=== PATIENT | male | born 1955 | race Caucasian/White ===

== ENCOUNTER 2019-06-24 09:40 | Outpatient (CLI) | payer BC, SELFPAY ==
--- NOTE | ~2019-06-24 | XR_ITS ---
XR sinus min 3V DATE: 06/24/2019 10:56 INDICATION: Cough TECHNIQUE: ambrosio Vanessa, lateral and submental vertical views COMPARISON: None FINDINGS: The paranasal sinuses and mastoid air cells are normally developed and aerated. IMPRESSION: Negative Reviewed, dictated and finalized at location B. IMPRESSION: Negative
--- NOTE | ~2019-06-24 | XR_ITS ---
XR chest 2V DATE: 06/24/2019 10:56 INDICATION: Cough TECHNIQUE: PA and lateral views COMPARISON: 01/31/2016 2 view chest FINDINGS: Normal heart size. There is aortic tortuosity. No hilar or mediastinal enlargement. No pulmonary infiltrate or consolidation, pleural effusion or pulmonary vascular congestion or pneumo thorax. Diffuse idiopathic skeletal hyperostosis of the thoracic spine. IMPRESSION: No active cardiopulmonary disease Reviewed, dictated and finalized at location B.
[2019-06-24 10:45] LABS: Basophils Percent Auto 0.5 % (0.2-1.2); Eosinophils Absolute Auto 0.3 K/mm3 (0-0.3); Eosinophils Percent Auto 3.2 % (0-4.4); Hemoglobin 15.1 g/dL (14.0-18.0); Immature Granulocyte Absolute 0.02 K/mm3 (0.00-0.031); Immature Granulocyte Percent A 0.2 % (0-0.5); Lymphocytes Absolute Auto 1.98 K/mm3 (0.9-3.2); Lymphocytes Percent Auto 24.4 % (18.3-44.2); Mean Corpuscular HGB Conc 32.8 g/dl (32-36); Mean Corpuscular Hemoglobin 29.8 pg (26-34); Mean Corpuscular Volume 90.9 fl (80-100); Mean Platelet Volume 9.5 fl (7.4-10.4); Monocytes Absolute Auto 0.5 K/mm3 (0.1-0.6); Monocytes Percent Auto 6.5 % (2.6-8.5); Neutrophils Absolute Auto 5.3 K/mm3 (1.3-6.7); Neutrophils Percent Auto 65.2 % (45.5-73.1); Platelet Count Result 277 k/mm3 (150-375); Red Blood Count 5.06 M/mm3 (4.6-6.20); Red Cell Distribution Width 13.7 % (11.5-14.5); White Blood Count 8.1 K/mm3 (4.5-10.0)
[2019-06-24 10:48] LABS: Influenza Control Positive
== END 2019-06-24 09:41 | disposition home or self-care (01) ==
LOC: ANHLAB 09:46
PROVIDERS: PCP Internal Medicine; Visit Provider Internal Medicine
DX: R69 Illness, unspecified (principal); R05 Cough
CPT/HCPCS: 70220; 71046; 85025; 87804

== ENCOUNTER 2019-07-15 09:40 | Outpatient (CLI) | payer BC, SELFPAY ==
--- NOTE | ~2019-07-15 | XR_ITS ---
EXAMINATION: XR chest 2V DATE: 07/15/2019 11:02 INDICATION: Fever. TECHNIQUE: Frontal and lateral views of the chest were obtained. COMPARISON: Chest 2 views 06/24/2019 FINDINGS: There is mild atelectasis at left lung base. No pleural effusion or pneumothorax. The heart size is normal. Surgical clips in the right upper quadrant are likely from cholecystectomy. IMPRESSION: 1. Mild atelectasis at left lung base. Reviewed, dictated and finalized at location A.
[2019-07-15 10:27] LABS: Basophils Percent Auto 0.5 % (0.2-1.2); Eosinophils Absolute Auto 0.4 K/mm3 (0-0.3); Eosinophils Percent Auto 5.4 % (0-4.4); Hematocrit 45.3 % (42.0-52.0); Hemoglobin 15.1 g/dL (14.0-18.0); Immature Granulocyte Absolute 0.02 K/mm3 (0.00-0.031); Immature Granulocyte Percent A 0.3 % (0-0.5); Lymphocytes Absolute Auto 1.86 K/mm3 (0.9-3.2); Lymphocytes Percent Auto 28.8 % (18.3-44.2); Mean Corpuscular HGB Conc 33.3 g/dl (32-36); Mean Corpuscular Hemoglobin 30.1 pg (26-34); Mean Corpuscular Volume 90.4 fl (80-100); Mean Platelet Volume 9.7 fl (7.4-10.4); Monocytes Absolute Auto 0.6 K/mm3 (0.1-0.6); Monocytes Percent Auto 8.5 % (2.6-8.5); Neutrophils Absolute Auto 3.6 K/mm3 (1.3-6.7); Neutrophils Percent Auto 56.5 % (45.5-73.1); Platelet Count Result 217 k/mm3 (150-375); Red Blood Count 5.01 M/mm3 (4.6-6.20); Red Cell Distribution Width 13.8 % (11.5-14.5); White Blood Count 6.5 K/mm3 (4.5-10.0)
[2019-07-15 10:41] LABS: Alanine Aminotransferase 30 U/L (4-50); Albumin Level 4.3 g/dL (3.5-5.1); Alkaline Phosphatase 47 U/L (38-126); Aspartate Amino Transferase 28 U/L (17-59); Bilirubin,Total 0.3 mg/dL (0.2-1.3); Blood Urea Nitrogen 15 mg/dL (9-20); CRP < 0.5 mg/dL (<1.0); Calcium 9.1 mg/dL (8.4-10.2); Carbon Dioxide 27 mmol/L (22-30); Chloride 105 mmol/L (98-107); Estimated Glomerular Filt Rate > 60; Glucose 108 mg/dL (75-110); Potassium 3.4 mmol/L (3.4-5.0); Sodium 141 mmol/L (137-145)
[2019-07-15 11:07] LABS: Erythrocyte Sedimentation Rate 7 mm/hr (0-20)
[2019-07-15 11:10] LABS: Add Urine Microscopic? NO; Appearance Urine Clear (Clear); Bilirubin Urine Negative (Negative); Blood Urine Negative (Negative); Color Urine Yellow (Yellow); Glucose Urine UA Negative (Negative); Ketones Urine Negative (Negative); Leukocyte Esterase Ur Negative LEU/UL (NEGATIVE); Nitrate Urine Negative (Negative); Protein Urine Negative (Negative); Specific Grav Ur 1.028 (1.001-1.035); Urobilinogen Urine Negative mg/dL (<2.0)
== END 2019-07-15 09:41 | disposition home or self-care (01) ==
PROVIDERS: PCP Internal Medicine; Visit Provider Internal Medicine
DX: R50.9 Fever, unspecified (principal); Z79.899 Other long term (current) drug therapy; R91.8 Other nonspecific abnormal finding of lung field
CPT/HCPCS: 36415; 71046; 80053; 81003; 85025; 85652; 86140; 87040; 87086

== ENCOUNTER 2019-07-27 16:13 | Outpatient (CLI) | payer BC, SELFPAY ==
--- NOTE | ~2019-07-27 | CT_ITS ---
EXAMINATION: CT brain wo con INDICATION: Fever of unknown origin COMPARISON: 09/29/2014 TECHNIQUE: Standard unenhanced head CT. The dose-length product (DLP) was 605.33 mGy-cm. The mA was a djusted according to patient size. Iterative reconstruction technique was employed. FINDINGS: There is no intracranial hemorrhage, acute infarction, or abnormal mass lesion. The ventric les are normal. There is no abnormal mass effect or midline shift. The villela-white matter differentiat ion is normal. The basal cisterns are patent. The orbits are normal. The paranasal sinuses, mastoids and calvarium are normal. IMPRESSION: 1. No acute intracranial abnormality. Reviewed, dictated and finalized at location A.
--- NOTE | ~2019-07-27 | CT_ITS ---
EXAMINATION: CT chest abdomen pelvis w con DATE: 07/27/2019 19:10 INDICATION: Fever of unknown origin TECHNIQUE: Transaxial computed tomographic images of the chest, abdomen, and pelvis were obtained aft er the administration of 100 cc of Omnipaque 350 intravenous contrast. The dose-length product (DLP) was 1793.87 mGy-cm. Automated exposure control and iterative reconstruction technique were employed. COMPARISON: None FINDINGS: CHEST CT: There is mild dependent atelectasis. No focal airspace opacities are identified. There is no pleural effusion or pneumothorax. There are no pathologically enlarged thoracic lymph nodes. Calcified mitchell ry artery atherosclerosis is noted. Subendocardial fat deposition in the left ventricular apex could reflect prior myocardial infarction. ABDOMEN/PELVIS CT: The gallbladder is surgically absent. There is mild enlargement of the common bile duct and central i ntrahepatic ducts which is likely due to post cholecystectomy state. The liver, spleen, pancreas, and adrenal glands are normal. Hypoattenuating lesions in the kidneys, measuring up to 6 mm on the right , are too small to characterize but likely represent cysts. An area of focal scarring is noted in the posterolateral aspect of the right kidney lower pole. No pathologically enlarged abdominal or pelvic lymph nodes are identified. There is no free intraperitoneal gas or evidence of bowel obstruction. A moderate volume of colonic stool is present. An appendicolith is present in the otherwise normal janet endix. IMPRESSION: 1. No CT correlate for the patient's symptoms. Reviewed, dictated and finalized at location A.
[2019-07-27 17:15] LABS: Basophils Percent Auto 0.4 % (0.2-1.2); Eosinophils Absolute Auto 0.2 K/mm3 (0-0.3); Eosinophils Percent Auto 3.2 % (0-4.4); Hematocrit 50.4 % (42.0-52.0); Hemoglobin 16.6 g/dL (14.0-18.0); Immature Granulocyte Absolute 0.01 K/mm3 (0.00-0.031); Immature Granulocyte Percent A 0.1 % (0-0.5); Lymphocytes Absolute Auto 1.73 K/mm3 (0.9-3.2); Lymphocytes Percent Auto 24.9 % (18.3-44.2); Mean Corpuscular HGB Conc 32.9 g/dl (32-36); Mean Corpuscular Hemoglobin 29.7 pg (26-34); Mean Corpuscular Volume 90.2 fl (80-100); Mean Platelet Volume 9.6 fl (7.4-10.4); Monocytes Absolute Auto 0.5 K/mm3 (0.1-0.6); Neutrophils Absolute Auto 4.5 K/mm3 (1.3-6.7); Neutrophils Percent Auto 64.4 % (45.5-73.1); Platelet Count Result 299 k/mm3 (150-375); Red Blood Count 5.59 M/mm3 (4.6-6.20); Red Cell Distribution Width 13.5 % (11.5-14.5)
[2019-07-27 17:17] LABS: Add Urine Microscopic? NO; Appearance Urine Clear (Clear); Bilirubin Urine Negative (Negative); Blood Urine Negative (Negative); Color Urine Yellow (Yellow); Glucose Urine UA Negative (Negative); Ketones Urine Negative (Negative); Leukocyte Esterase Ur Negative LEU/UL (NEGATIVE); Nitrate Urine Negative (Negative); Protein Urine Negative (Negative); Specific Grav Ur 1.016 (1.001-1.035); Urobilinogen Urine Negative mg/dL (<2.0)
[2019-07-27 17:29] LABS: Rheumatoid Factor < 8.6 IU/ML (<12)
[2019-07-27 17:30] LABS: CRP < 0.5 mg/dL (<1.0)
[2019-07-27 17:34] LABS: Erythrocyte Sedimentation Rate 2 mm/hr (0-20)
[2019-07-27 18:11] LABS: Hepatitis B Surface Antigen Negative (Negative)
[2019-07-27 18:17] LABS: HAV RESULT Negative (Negative); Hepatitis B Core IgM Result Negative (Negative)
[2019-07-27 18:42] LABS: Hepatitis C Virus Antibody Reactive (Negative)
[2019-07-29 16:13] LABS: Hepatitis C RNA, Quant PCR <15 IU/mL
== END 2019-07-27 16:14 | disposition home or self-care (01) ==
PROVIDERS: PCP Internal Medicine; Visit Provider Internal Medicine
DX: R50.9 Fever, unspecified (principal)
CPT/HCPCS: 36415; 70450; 71260; 74177; 80074; 81003; 85025; 85652; 86038; 86140; 86430; 87040; 87086; 87522; Q9967

== ENCOUNTER 2019-07-29 11:35 | Outpatient (CLI) | payer BC, SELFPAY ==
[2019-07-29 12:04] LABS: Alanine Aminotransferase 37 U/L (4-50); Albumin Level 4.6 g/dL (3.5-5.1); Alkaline Phosphatase 53 U/L (38-126); Aspartate Amino Transferase 36 U/L (17-59); Bilirubin,Total 0.8 mg/dL (0.2-1.3)
[2019-07-30 17:31] LABS: Hepatitis C RNA, Quant PCR <15 IU/mL
== END 2019-07-29 11:36 | disposition home or self-care (01) ==
PROVIDERS: PCP Internal Medicine; Visit Provider Internal Medicine
DX: B19.20 Unspecified viral hepatitis C without hepatic coma (principal)
CPT/HCPCS: 36415; 80076; 87522

== ENCOUNTER → 2020-02-01 13:03 | Outpatient (CLI) | payer BC, SELFPAY ==
--- NOTE | ~2020-02-01 | MR_ITS ---
EXAMINATION: MR lumbar spine wo con DATE: 02/01/2020 13:38 INDICATION: Low back pain. Right leg pain. TECHNIQUE: Magnetic resonance imaging (MRI) of the lumbar spine was performed without intravenous con trast. Sequences included sagittal T2-weighted FSE, sagittal T2-weighted FS FSE, sagittal T1-weighted FSE, and axial T2-weighted FSE. COMPARISON: Lumbar spine MRI 01/15/2018 FINDINGS: Bone alignment is normal. There are Schmorl's nodes from L1-L2 through L4-L5. There is mild ly decreased disc height at L2-L3 and L3-L4. Osseous central spinal canal is developmentally small fr om L2 to L5. The distal spinal cord signal intensity is normal. The conus medullaris is at T12-L1. Th e following disc levels are specifically discussed: L1-L2: The disc does not extend beyond the endplate margin. There is mild bilateral facet joint osteo arthritis. There is no neural foraminal stenosis. There is no central canal stenosis. L2-L3: The disc is bulging and has an annular fissure. There is mild bilateral facet joint osteoarthr itis. There is mild bilateral neural foraminal stenosis. There is mild central canal stenosis. L3-L4: The disc is bulging and has an annular fissure. There is mild left facet joint osteoarthritis. There is mild bilateral neural foraminal stenosis. There is mild central canal stenosis. L4-L5: The disc is bulging and has an annular fissure. There is severe bilateral facet joint osteoart hritis. There is hypertrophy of the ligamentum flavum. There is moderate bilateral neural foraminal s tenosis. There is severe central canal stenosis. L5-S1: The disc is bulging. There is moderate bilateral facet joint osteoarthritis. There is mild brooks ateral neural foraminal stenosis. There is mild central canal stenosis. IMPRESSION: 1. Moderate lumbar spondylosis, worsened from 01/15/2018. Reviewed, dictated and finalized at location A.
== END ==
PROVIDERS: PCP Internal Medicine; Visit Provider Internal Medicine
DX: M21.371 Foot drop, right foot (principal); R29.898 Other symptoms and signs involving the musculoskeletal system; M47.896 Other spondylosis, lumbar region
CPT/HCPCS: 72148

== ENCOUNTER → 2021-04-05 09:36 | Outpatient (CLI) | payer OTHER, SELFPAY ==
--- NOTE | ~2021-04-05 | MR_ITS ---
EXAMINATION: MR lumbar spine wo con DATE: 04/05/2021 10:24 INDICATION: Spondylosis without myelopathy or radiculopathy. TECHNIQUE: Magnetic resonance imaging (MRI) of the lumbar spine was performed without intravenous con trast. Sequences included sagittal T2-weighted FSE, sagittal T2-weighted FS FSE, sagittal T1-weighted FSE, and axial T2-weighted FSE. COMPARISON: Lumbar spine MRI 02/01/2020 FINDINGS: There is 3 degrees dextrocurvature of lumbar spine. There are Schmorl's nodes at multiple l evels. There is mildly decreased disc height at L2-L3 and L3-L4. Osseous central spinal canal is deve lopmentally small from L2 to L4. The distal spinal cord signal intensity is normal. The conus medulla ris is at T12. The following disc levels are specifically discussed: L1-L2: The disc does not extend beyond the endplate margin. There is mild bilateral facet joint osteo arthritis. There is no neural foraminal stenosis. There is no central canal stenosis. L2-L3: The disc is bulging and has an annular fissure. There is moderate right and mild left facet cally int osteoarthritis. There is moderate bilateral neural foraminal stenosis. There is mild central darshan l stenosis. L3-L4: The disc is bulging and has an annular fissure. There is mild bilateral facet joint osteoarthr itis. There is moderate bilateral neural foraminal stenosis. There is mild central canal stenosis. L4-L5: The disc is bulging and has an annular fissure. There is severe bilateral facet joint osteoart hritis. There is moderate bilateral neural foraminal stenosis. There is severe central canal stenosis . L5-S1: The disc is bulging and has an annular fissure. There is moderate bilateral facet joint osteoa rthritis. There is mild bilateral neural foraminal stenosis. There is mild central canal stenosis. IMPRESSION: 1. Moderate lumbar spondylosis, stable from 02/01/2020. Reviewed, dictated and finalized at location B. TIC ATTACHER OVERLOCK
== END ==
PROVIDERS: PCP Internal Medicine; Visit Provider Internal Medicine
DX: M47.816 Spondylosis without myelopathy or radiculopathy, lumbar region (principal)
CPT/HCPCS: 72148

== ENCOUNTER → 2021-04-20 11:37 | Outpatient (CLI) | payer OTHER, SELFPAY ==
--- NOTE | ~2021-04-20 | XR_ITS ---
EXAMINATION: XR shoulder RT min 2V EXAM DATE: 04/20/2021 11:53 INDICATION: M25.511 - Pain in right shoulder. TECHNIQUE: The following right shoulder projections obtained: frontal projection with internal rotati on, frontal projection with external rotation, Grashey, and axillary (4+ views). There is no prior s tudy for comparison. FINDINGS: There is moderate glenohumeral joint, moderate acromioclavicular joint primary osteoarthrit is. Calcification adjacent to the greater tuberosity which could be calcific tendinosis. There are n o acute fractures or dislocations identified. There is no subcutaneous gas. There are no radiopaque foreign bodies. IMPRESSION: 1. Moderate right shoulder osteoarthritis. 2. Probable rotator cuff calcific tendinosis. Reviewed, dictated and finalized at location A. LLIGENCE CLERK
== END ==
PROVIDERS: PCP Internal Medicine; Visit Provider Internal Medicine
DX: M19.011 Primary osteoarthritis, right shoulder (principal); M75.31 Calcific tendinitis of right shoulder
CPT/HCPCS: 73030

== ENCOUNTER → 2022-02-09 11:18 | Outpatient (CLI) | payer MEDICARE, OTHER, SELFPAY ==
--- NOTE | ~2022-02-09 | US_ITS ---
EXAMINATION: US thyroid DATE: 02/09/2022 11:39 INDICATION: Abnormal results of thyroid function tests. TECHNIQUE: Multiple ultrasound images of the thyroid were obtained. COMPARISON: Thyroid ultrasound 09/07/2015 FINDINGS: The right thyroid lobe measures 3.8 x 2.0 x 1.9 cm. The left thyroid lobe measures 4.2 x 2.3 x 1.7 c m. In the right thyroid lobe, there is a 4 mm nodule. In the right thyroid lobe, there is a 4 mm nod ule. In the left thyroid lobe, there is a 9 mm solid, hypoechoic, wider than tall nodule with ill-def ined margin without echogenic foci (TI-RADS TR4). In the left thyroid lobe, there is a 4 mm nodule. IMPRESSION: 1. Small thyroid nodules, likely not clinically significant. No follow-up is needed. Reviewed, dictated and finalized at location A. IMPRESSION: 1. Small thyroid nodules, likely not clinically significant. No follow-up is ne eded.
== END ==
PROVIDERS: PCP Internal Medicine; Visit Provider Internal Medicine
DX: R94.6 Abnormal results of thyroid function studies (principal); E04.2 Nontoxic multinodular goiter
CPT/HCPCS: 76536

== ENCOUNTER → 2022-06-28 14:36 | Outpatient (CLI) | payer MEDICARE, OTHER, SELFPAY ==
--- NOTE | ~2022-06-28 | XR_ITS ---
XR sinus min 3V DATE: 06/28/2022 15:06 INDICATION: Unspecified disorders of nose and nasal sinuses TECHNIQUE: ambrosio Vanessa, lateral and submental vertical views COMPARISON: 07/27/2019 CT brain 06/24/2019 sinuses FINDINGS: The paranasal sinuses are normally developed and aerated. No opacification or air-fluid lev els are noted. The mastoid air cells appear normally developed and aerated. IMPRESSION: Negative sinuses Reviewed, dictated and finalized at location A. IMPRESSION: Negative sinuses
--- NOTE | ~2022-06-28 | XR_ITS ---
AP and lateral views of the neck CLINICAL HISTORY: Chronic sinusitis FINDINGS: Visualized osseous structures and intervertebral disc spaces are preserved. No prevertebral soft tissue swelling. Epiglottis unremarkable. Visualized aerodigestive tract unremarkable. No disti nct abnormal hypertrophy. Soft tissues are unremarkable. IMPRESSION: No significant abnormality seen. Reviewed, dictated and finalized at [facility].
== END ==
PROVIDERS: PCP Internal Medicine; Visit Provider Internal Medicine
DX: J34.89 Other specified disorders of nose and nasal sinuses (principal); J32.9 Chronic sinusitis, unspecified; H92.01 Otalgia, right ear; R07.0 Pain in throat; M54.2 Cervicalgia; H66.90 Otitis media, unspecified, unspecified ear
CPT/HCPCS: 70220; 70360

== ENCOUNTER 2024-07-30 12:34 | Outpatient (CLI) | payer MEDICARE, OTHER, SELFPAY ==
--- NOTE | 2024-07-30 12:52 | ECHO_ITS ---
Patient Info Name: Carlos Rooney Age: 69 years : 1955 Gender: Male Ht: 71 in Wt: 200 lbs BSA: 2.15 m2 HR: 69 bpm BP: 146 / 95 mmHg Exam Date: 07/30/2024 1:00 PM Exam Location: Echo Lab Patient Status: Outpatient Admit Date: 07/30/2024 Staff Ordering Physician: Po Howell MD Vacuum Pan Tender: Shirin Salas RDCS Attending Provider: Po Howell MD Referring Physician: Lynda DRAKE; Exam Type: CA echo doppler color flow Study Info Indications I10 - Essential (primary) hypertension Complete two-dimensional, color flow and Doppler transthoracic echocardiogram is performed. Summary 1. Complete two-dimensional, color flow and Doppler transthoracic echocardiogram is performed. 2. Left ventricular chamber dimension is normal. 3. Left ventricular systolic function is normal, estimated at 65-70%. 4. There is mild concentric increased left ventricular wall thickness. 5. The left ventricular diastolic function is grade I diastolic dysfunction. 6. E/e' 7 is not elevated. 7. There is mild tricuspid valve regurgitation. 8. No pulmonary hypertension, estimated pulmonary arterial systolic pressure is 22 mmHg. Left Ventricle E/e' 7 is not elevated. Left ventricular chamber dimension is normal. Left ventricular systolic function is normal, estimated at 65-70%. There is mild concentric increased left ventricular wall thickness. The left ventricular diastolic function is grade I diastolic dysfunction. Right Ventricle Right ventricular systolic function is normal and with normal TAPSE 2.0 cm. Right ventricular chamber dimension is normal. Left Atria Left atrial chamber dimension is normal. Right Atria Right atrial chamber dimension is normal. Aortic Valve The aortic valve is trileaflet. There is no aortic valve stenosis. There is no aortic valve regurgitation. Pulmonic Valve There is no pulmonic regurgitation. Mitral Valve There is no mitral valve stenosis. There is no mitral valve regurgitation. Tricuspid Valve There is mild tricuspid valve regurgitation. No pulmonary hypertension, estimated pulmonary arterial systolic pressure is 22 mmHg. Pericardium/Pleural There is no pericardial effusion. Inferior Vena Cava Normal inferior vena cava with >50% collapse upon inspiration consistent with normal right atrial pressure, 5 mmHg. Aorta The aortic root size at the sinus of Valsalva is normal. Left Ventricular Outflow Tract Name Value Normal LVOT 2D LVOT Diameter 2.1 cm LVOT Doppler LVOT Peak Gradient 3 mmHg LVOT Mean Gradient 2 mmHg LVOT VTI 19 cm LVOT VTI/AV VTI Ratio 0.6 LVOT Stroke Volume 70 ml LVOT CO 13.7 l/min LVOT CI 6.4 l/min/m2 Pulmonic Valve Name Value Normal PV Doppler PV Peak Gradient 4 mmHg Mitral Valve Name Value Normal MV Doppler MV Decel Montgomery 314 cm/s2 MV PHT 65 ms MV Area (PHT) 3.4 cm2 4.0-5.0 MV Diastolic Function MV E Peak Velocity 70 cm/s MV A Peak Velocity 84 cm/s MV E/A 0.8 MV Decel Time 224 ms MV Annular TDI MV E/e' (Septal) 8.9 <=8.0 MV E/e' (Lateral) 6.6 <=8.0 MV E/e' (Average) 7.8 Tricuspid Valve Name Value Normal TV Regurgitation Doppler TR Peak Velocity 208 cm/s TR Peak Gradient 17 mmHg Estimated PAP/RSVP RA Pressure 5 mmHg <=5 PA Systolic Pressure 22 mmHg <36 RV Systolic Pressure 22 mmHg <36 Aorta Name Value Normal Ascending Aorta Ao Root Diameter (MM) 3.6 cm Ao Root Diam Index (MM) 1.7 cm/m2 Aortic Valve Name Value Normal AV Doppler AV Peak Velocity 146 cm/s AV Peak Gradient 9 mmHg AV Mean Gradient 5 mmHg AV VTI 31 cm AV Area (Cont Eq VTI) 2.2 cm2 >=3.0 AV Area (Cont Eq Gideon) 2.3 cm2 AV Regurgitation 2D LVOT Area 3.6 cm2 Ventricles Name Value Normal LV Dimensions 2D/MM IVS Diastolic Thickness (2D) 1.2 cm 0.6-1.0 LVID Diastole (2D) 5.0 cm 4.2-5.8 LVIW Diastolic Thickness (2D) 1.3 cm 0.6-1.0 LVID Systole (2D) 3.3 cm 2.5-4.0 LVOT Diameter 2.1 cm LV Mass (2D Cubed) 236.54 g 88.00-224.00 LV Mass Index (2D Cubed) 110 g/m2 49-115 Relative Wall Thickness (2D) 0.51 LV Fractional Shortening/Ejection Fraction 2D/MM LV Fractional Shortening (2D) 34 % 25-43 LV EF (2D Teicholz) 63 % 52-72 LV Diastolic Volume (4C MOD) 119 ml LV EF (4C MOD) 75 % LV Diastolic Volume (2C MOD) 106 ml LV EF (2C MOD) 68 % LV Diastolic Volume (BP MOD) 112 ml 62-150 LV Diastolic Volume Index (BP MOD) 52 ml/m2 34-74 LV Systolic Volume (BP MOD) 32 ml 21-61 LV Systolic Volume Index (BP MOD) 15 ml/m2 11-31 LV EF (BP MOD) 72 % 52-72 LV Diastolic Length (4C) 9.1 cm LV Systolic Length (4C) 7.1 cm LV Stroke Volume (4C MOD) 89 ml RV Dimensions 2D/MM RVID Diastole (2D) 3.7 cm 2.5-3.5 Atria Name Value Normal LA Dimensions LA Dimension (MM) 3.2 cm 3.0-4.1 LA Volume (4C A-L) 35 ml LA Volume (BP A-L) 46 ml RA Dimensions RA Area (4C) 17.2 cm2 <=18.0 Report Signatures
--- OUTSIDE RECORDS SUMMARY | 2024-07-30 13:32 | XMS_ITS | Clinical Summary ---
Author Organization [facility] Address [address] [place] [address] Care Team Providers Care Cable Splicer Helper Name Role Phone Po Howell MD Primary Care Provider [phone] Rajiv GORMAN MD, Jaime Marvin Unavailable [phone] Keisha Joshi NP Unavailable [phone] Allergies Active Allergy Reactions Criticality Noted Date Comments Lisinopril Cough Reaction: Cough, Medications clonazePAM (KlonoPIN) 1 mg tablet Take 1 tablet (1 mg total) by mouth nightly 5 8 Active eszopiclone (LUNESTA) tabletIndicatio ns:Insomnia Take 1 tablet (3 mg total) by mouth nightly 1 8 Active omega-3 fatty acids-fish oil 300-1,000 mg capsule Take 1 capsule (1 g total) by mouth 2 (two) times a day Active pantoprazole DR (PROTONIX) 40 mg EC tablet Take 1 tablet (40 mg total) by mouth 2 (two) times a day 4 8 Active pramipexole (MIRAPEX) 0.25 mg tablet Take 1 tablet (0.25 mg total) by mouth nightly 5 8 Active pravastatin (PRAVACHOL) 40 mg tablet Take 1 tablet (40 mg total) by mouth nightly 1 8 Active metFORMIN (GLUCOPHAGE) 500 mg tablet Take 1 tablet (500 mg total) by mouth 2 (two) times a day with meals Active folic acid (FOLVITE) 1 mg tablet Take 1 tablet (1 mg total) by mouth daily Active losartan (COZAAR) 100 mg tablet Take 1 tablet (100 mg total) by mouth daily Active cyanocobalamin (Vitamin B-12) 1,000 mcg tabletIndicatio ns:Prevention of Vitamin B12 Deficiency Take 1 tablet (1,000 mcg total) by mouth daily Active pyridoxine HCl, vitamin B6, (VITAMIN B-6 ORAL) Take 1 tablet by mouth daily Active semaglutide (Ozempic) 0.25 mg or 0.5 mg(2 mg/1.5 mL) pen injector injection Inject 0.5 mg under the skin once a week Saturday Active tiZANidine (ZANAFLEX) 4 mg tablet Take 0.5-1 tablets (2-4 mg total) by mouth every 8 (eight) hours as needed for muscle spasms 90 tablet 2 Active sulfacetamide sodium, acne, 10 % suspension 2 Active rosuvastatin (CRESTOR) 10 mg tablet 2 Active ketoconazole (NIZORAL) 2 % shampoo 2 Active hydroCHLOROthia zide (HYDRODIURIL) 25 mg tablet [address] (VOLTAREN) 75 mg EC tablet 2 Active amLODIPine (NORVASC) 5 mg tablet 2 Active venlafaxine XR (EFFEXOR-XR) 75 mg 24 hr capsuleIndicati ons:Prostate cancer (HCC) Take 1 capsule (75 mg total) by mouth daily 30 capsule 4 Active gabapentin (NEURONTIN) 100 mg capsuleIndicati ons:Malignant neoplasm of prostate (HCC) Take 1 capsule (100 mg total) by mouth 3 (three) times a day 180 capsule 1 4 Active Eliquis 5 mg tablet TAKE 1 TABLET TWICE A DAY 180 tablet 3 4 Active tamsulosin (Flomax) 0.4 mg extended release capsuleIndicati ons:Prostate cancer (HCC) Take 1 capsule (0.4 mg total) by mouth nightly 30 capsule 2 4 Active Active Problems Problem Noted Date Diagnosed Date 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 This is related to Mr. Cordero's treatment with testosterone ( testosterone and estrogen therapy increases thyroid binding globulin ) This is more of lab artifact that has no clinical significance and therefore needs no treatment. Atrial fibrillation 10/04/2021 Assessment & Plan (05/06/2024 3:06 PM STRATEGIC PARTNERSHIP SPECIALIST): Chronic, stable. Mildly symptomatic AF, with exacerbations probably in context of hot flashes associated with prostate cancer therapy. Recommend continued observation and anticoagulation. If symptoms worsen, could consider AAD therapy versus catheter ablation. --Continue apixaban 5 mg BID Assessment & Plan (05/01/2023 5:04 PM STRATEGIC PARTNERSHIP SPECIALIST): Paroxysmal AF. Currently in sinus rhythm. Arrhythmia burden unclear but probably low. In absence of severe symptoms, continued rate control strategy is advised. [id number] = 3. Anticoagulation is recommended. Pt was recently given prescription for meloxicam. We discussed the risks associated with combined use of NSAIDs and DOACs, including severe bleeding. I encouraged him to discuss alternative analgesic options with his physicians. --Continue apixaban 5 mg BID Assessment & Plan (04/30/2022 1:36 PM STRATEGIC PARTNERSHIP SPECIALIST): Stable. Unclear whether episodes of tachypalpitations during periods of stress represent AF or sinus tachycardia. We discussed methods to sort this out, including wearable monitors vs personal devices. The patient expressed interest in the [employer] mobile device, which I endorsed as a good option. He will consider. [id number] = 3 (age, htn, dmII) --Amiodarone has been stopped --Continue apixaban 5 mg BID I encouraged the pt to call me if he confirms more AF or symptoms worsen. Assessment & Plan (10/23/2021 3:48 PM CDT): Occurring in postoperative setting after spine surgery. Now doing well, maintaining sinus rhythm after cardioversion on amiodarone. Recommend continuing amiodarone for the short term, anticipating stopping in approximately 6 months. If AF becomes a recurrent problem in the future, alternative therapies for rhythm control can be considered. I also reviewed alternative anticoagulant options with the patient. He will check with his insurance company. --Decrease amiodarone to 200 mg daily. Anticipate stopping at f/u appointment in 6 months. --Continue warfarin, goal INR 2.5. Check with insurance regarding DOAC options. Acute right lumbar radiculopathy 09/21/2021 Status post lumbar spinal fusion 09/14/2021 Assessment & Plan (12/21/2021 11:12 AM CDT): Mr. Cordero has unilateral weakness in his distal right foot with sudden onset several months after surgery. The etiology of this is unclear. His pain improved after decompression of the adjacent level, but weakness is unchanged. We will refer him to get an EMG/nerve conduction study of the lower extremities to help delineate this. We will speak to him by phone about the results and further recommendations. I plan to see him back in 6 weeks for re-evaluation. Assessment & Plan (12/12/2021 9:20 AM CDT): Mr. Cordero continues to have severe weakness in the right L5 and S1 distributions which developed suddenly a few months after the original surgery. He reports normal sensation. He underwent EMG/nerve conduction study by Dr. Mcclellan and I spoke to Dr. Mcclellan afterwards. The etiology of his symptoms is unclear. He had some improvement in the pain after extension of the decompression and fusion. His abrupt onset motor weakness did not change. The timing of this is more consistent with a vascular event. MRI of the thoracic and lumbar spine with contrast were obtained to look for any tumor or hemangioma within the spinal cord. No evidence this was found and no serpiginous veins consistent with AVM were seen. I discussed with Mr. Cordero and his the that other vascular malformation such as AVM are not ruled out, but that the studies to rule them out would entail risk of stroke to the spinal cord and at this point were not warranted. If he has any further decline in function, I would recommend a spinal angiogram to rule out vascular malformation. They voiced understanding of this. I plan to see him back in 2 months with AP and lateral lumbar spine films. We will give him a script for physical therapy for back and leg stretching and strengthening. Assessment & Plan (09/14/2021 3:00 PM CDT): Mr. Cordero is status post L3-5 decompression and fusion with improvement in his neurogenic claudication symptoms after surgery. He has some trace weakness in the S1 distribution on the right which he had preoperatively. His biggest concern is bowel and bladder control. He recently was evaluated by Urology. He has had his prostate removed in the past. He had an MRI performed postoperatively that showed a wide decompression from L3-L5, mild adjacent level stenosis at L2-3 and no compressive pathology to explain his symptoms. Given his persistent bowel and bladder incontinence, we will get MRIs of the cervical and thoracic spine to rule out any compression to explain his symptoms. If these are negative, he may ultimately require an MRI of the brain and EMG of the lower extremities to help further delineate a cause of this. Status post lumbar spinal fusion 07/31/2021 Assessment & Plan (07/31/2021 2:24 PM CDT): PLAN: - MRI lumbar spine to assess for active nerve root compression to warrant this bladder and occasional bowel incontinence. -continue activity restrictions as outlined prior to surgery. - Renew medications: Percocet 5-3254 tablets per day and tizanidine - Continue bone growth stimulator with Dr. Avendaño's office a couple questions ulator/brace - After 6 weeks, patient may resume NSAIDs, may increase activity as tolerated, wean off bone growth stimulator and brace. WORK STATUS: - retired FOLLOW UP APPT: With Dr. Avendaño in 6 weeks with Flexion/Extension Lumbar spine films. Preop MRI lumbar spine CD returned to the patient Lumbar stenosis with neurogenic claudication Assessment & Plan (04/26/2021 5:09 PM STRATEGIC PARTNERSHIP SPECIALIST): Mr. Cordero has lumbar stenosis with neurogenic claudication. He has severe stenosis at L4-5 greater than L4. He has had progression of his leg pain and claudication symptoms. He now wishes to pursue surgery. I have offered him L3-L5 lumbar decompression and fusion with instrumentation which we will perform at our earliest convenience. Assessment & Plan (05/04/2020 3:36 PM STRATEGIC PARTNERSHIP SPECIALIST): Mr. Cordero has lumbar stenosis with neurogenic claudication. 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 He has stenosis at L4-5 greater than L3-4, greater than L2- 3. I have offered him surgery in the form of lumbar decompression and fusion with instrumentation. We talked about the option of just doing the worst level of L4- 5 or of doing the two most compressed levels. If he undergo surgery, he wishes to undergo L3-4 L4-5 surgery. He wishes to think about his options prior to consenting to surgery. He will let us know if he wishes to proceed. If he decides to proceed with surgery, we will arrange for him to undergo L3-L5 laminectomy and fusion with instrumentation. He is aware that he has a congenital stenosis that may become symptomatic over time. Given his weakness, I would recommend surgical intervention to give him the best chance of recovery.. Hypokalemia 04/17/2018 Assessment & Plan (04/19/2018 4:43 PM STRATEGIC PARTNERSHIP SPECIALIST): On multiple medicaitons. Need to recheck K and Mg levels. Prostate cancer 09/25/2017 Cancer Staging:Pathologic: pT2, pN0, cM0, Grade Group: 3 - Signed by Jermain Lee MD on 06/07/2023 Overview (09/25/2017): Added automatically from request for surgery [id number] Sleep disorder 07/10/2016 Overview (07/19/2017): Description: prior Hx sleep apnea; unable to tolerate CPAP. Better after weight loss Posterior vitreous detachment 07/10/2016 Overview (07/19/2017): Description: OU - floaters Rosacea 12/26/2015 Benign prostatic hyperplasia 12/26/2015 Gastroesophageal reflux disease 12/26/2015 Multinodular goiter 12/26/2015 Assessment & Plan (05/14/2022 3:49 PM STRATEGIC PARTNERSHIP SPECIALIST): With subcentimeter nodules of no clinical significance Follow-up with ultrasound in a year is recommended Assessment & Plan (04/19/2018 4:43 PM STRATEGIC PARTNERSHIP SPECIALIST): Clinically euthyroid, no local Sx or palpable nodules. Hyperlipidemia 12/26/2015 Assessment & Plan (04/19/2018 4:42 PM STRATEGIC PARTNERSHIP SPECIALIST): Continue statin, lipid panel within goal. Hypogonadism in male 12/26/2015 Assessment & Plan (04/19/2018 4:43 PM STRATEGIC PARTNERSHIP SPECIALIST): Hx Ca prostate. Managed by Dr. Flores Arthralgia of hip 09/20/2010 Knee pain 09/20/2010 Lumbago 12/14/2008 Hypertension 12/14/2008 Encounters Date Type Department Care Team Description 06/10/2024 Telephone [facility] Replaced by [facility] [place] [address] Gaye Fields RN 05/12/2024 3:15 PM STRATEGIC PARTNERSHIP SPECIALIST Lab [facility] [address] [place] [id number] Prostate cancer (HCC) 05/12/2024 1:00 PM STRATEGIC PARTNERSHIP SPECIALIST Office Visit [facility] Rad[facility] On[facility] [address] [place] [id number] Jermain Lee MD Prostate cancer (HCC) 05/06/2024 2:15 PM STRATEGIC PARTNERSHIP SPECIALIST Office [facility] [address] [phone] Jaime Vance III, MD Paroxysmal atrial fibrillation (HCC) (Primary Dx); Cardiac arrhythmia, unspecified cardiac arrhythmia type from Last 3 Months Immunizations Immunization Administration Dates Next Due Hep A, Adult 07/28/2012,01/18/2012 Hep B Vaccine 06/20/2012,12/14/2011 Hep B, Unspecified 01/18/2012 Influenza Nasal, Unspecified 01/17/2012 Influenza, Quadrivalent, Spl it, Preservative Free, Intramuscular 12/26/2019 Influenza, Trivalent, Preser vative Free, Intramuscular 12/16/2014,04/08/2014,04/08/2014 Influenza, Unspecified 02/25/2018,02/25/2018, Pneumococcal Conjugate PCV 13 06/12/2019, 018 Pneumococcal Polysaccharide PPV23 04/08/2012,04/2012 Tdap 06/20/2012 ZOSTER LIVE 12/14/2011 ZOSTER Recombinant 12/26/2019,06/12/2019 Surgical History Surgery Date Site/Laterality Comments KNEE SURGERY Right ELBOW SURGERY PROSTATECTOMY US ABDOMEN COMPLETE W LIVER DOPPLER (C) 02/06/2018 Right CHOLECYSTECTOMY TONSILLECTOMY POSTERIOR FUSION LUMBAR SPINE 06/19/2021 L3-5 PSF ([facility]) POSTERIOR FUSION LUMBAR SPINE 09/22/2021 S/P L2-3 PSF with Revision L3-5 ([facility]) REPAIR DURAL / CSF LEAK 09/28/2021 [facility] Medical History Medical History Date Comments Prostate cancer (HCC) Hiatal hernia Hypertension Diabetes (HCC) 2 years, no insu cb GERD (gastroesophageal reflux disease) Neurogenic claudication due to lumbar spinal arnold nosis History of pancreatitis Osteoarthritis History of hepatitis C received treatment Sleep apnea non CPAP Anxiety and depression TMJ (temporomandibular joint syndrome) jaw locks Social History Tobacco Use Types Packs/Day Years Used Date Smoking Tobacco: Former Cigarettes 0.5 3 1 2 - 1974 Smokeless Tobacco: Never Tobacco Cessation:Counseling Given: Not Answered Alcohol Use Standard Drinks/Week Comments Yes 0 (1 standard drink = 0.6 oz pur e alcohol) rare Social Connection and Isolat ion Panel [NHANES] Answer Date Recorded In a typical week, how many times do you talk on the phone with family, friends, or neighbors? More than three times a week 09/25/2021 How often do you get togethe r with friends or relatives? Three times a week 09/25/2021 How often do you attend chur ch or sabianism services? 1 to 4 times per year 09/25/2021 Do you belong to any clubs o r organizations such as protestant groups, unions, fraternal or athletic groups, or school groups? No 09/25/2021 How often do you attend meet ings of the clubs or organizations you belong to? Never 09/25/2021 Are you , , di vorced, , never , or living with a partner? 09/25/2021 AUDIT-C Answer Date Recorded Q1: How often do you have a drink containing alc ohol? Monthly or less 09/21/2021 Q2: How many drinks containi ng alcohol do you have on a typical day when you are drinking? 1 or 2 09/21/2021 Q3: How often do you have si x or more drinks on one occasion? Never 09/21/2021 Overall Financial Resource Strain (CARDIA) Answe r Date Recorded How hard is it for you to pa y for the very basics like food, housing, medical care, and heating? Not very hard 09/25/2021 PHQ-2 Answer Date Recorded PHQ-2 Total Score (If total score is 3 or more points, staff should administer the PHQ-9) 0 05/14/2022 PRAPARE - Transportation Answer Date Re corded In the past 12 months, has l ack of transportation kept you from medical appointments or from getting medications? No 09/07 In the past 12 months, has l ack of transportation kept you from meetings, work, or from getting things needed for daily living? No 09/25/2021 Sex and Gender Information Value Date Recorded Sex Assigned at Not on file Legal Sex Male 3:58 AM STRATEGIC PARTNERSHIP SPECIALIST Gender Identity Male 10/31/2018 2:56 PM CDT Sexual Orientation Straight 10/31/2018 2: 56 PM CDT Obstetrics History Last Filed Vital Signs Vital Sign Reading Time Taken Comments Blood Pressure 136/82 05/06/2024 2:44 PM STRATEGIC PARTNERSHIP SPECIALIST Pulse 74 05/06/2024 2:44 PM STRATEGIC PARTNERSHIP SPECIALIST Temperature 36.3 C (97.4 F) 10/02/2021 7:37 AM CDT Respiratory Rate 16 07/09/2023 3:07 PM CDT Oxygen Saturation 92% 07/09/2023 3:07 PM CDT Inhaled Oxygen Concentration - - Weight 92.3 kg (203 lb 8 oz) 05/12/2024 1:15 PM STRATEGIC PARTNERSHIP SPECIALIST Height 180.3 cm (5' 10.98 ) 05/12/2024 1:[address] Body Mass Index 28.4 05/12/2024 1:15 PM STRATEGIC PARTNERSHIP SPECIALIST Plan of Treatment Health Maintenance Due Date Last Done Comments Colon Cancer Screening-Colonoscopy 1955 Hepatitis C Screening 1955 Abdominal Aortic Aneurysm (A AA) Screen 2019 Well Visit 65+ 2019 Depression Screening 05/14/2023 05/14/2022, 05/03/2020, 05/03/2020 Covid-19 Vaccine (5 - 2023-2 5 season) 2023 08/21/2021, 12/16/2020, 07/01/2020, Additional history exists Fall Risk Assessment 06/06/2024 06/07/2023, 10/02/2021, 07/11/2018, Additional history exists Influenza Vaccine (Season Ended) 2024 12/24/2022, 12/02/2020, 12/26/2019, Additional history exists DTaP/Tdap/Td Vaccine (4 - Td or Tdap) 07/16/2032 07/16/2022, 06/20/2012, 04/08/2012 Hepatitis B Screening Completed 06/20/2012 , 01/18/2012, 12/14/2011 Pneumococcal vaccine 65+ Completed 021, 06/12/2019, 05/02/2017, Additional history exists Zoster Vaccine Completed 07/19/2020, 12/07, 06/12/2019, Additional history exists Prostate Cancer Screening-PSA Discontinued , 10/31/2023, 05/09/2023, Additional history exists Goals Goal Patient Goal Type Associated Problems Recent Progress Patient-Stated? Author CCM Chronic Pain Care Plan Chronic Care Management No Chris Degroot, RN Note: Problem: Chronic Pain Goals: 1. Minimize further functional decline 2. Maximize quality of life 3. Control pain Strategies: - Activity/exercise program recommendation - Conservative stepwise pain medicine strategy with multi-disciplinary approach - Recommend healthy lifestyle strategies and compensatory methods as needed Reduce the likelihood of falling Lifestyle No Michelle Yu, RN Note: Below are four things you can do to prevent falls: 1. Begin an exercise program to improve your leg strength & balance 2. Ask your doctor or pharmacist to review your medicines 3. Get annual eye check-ups & update your eyeglasses 4. Make your home safer by: Removing clutter & tripping hazards Putting railings on all stairs & adding grab bars in the bathroom Having good lighting, especially on stairs Contact your local community or senior center for information on exercise, fall prevention programs, or options for improving home safety. Medical Devices Implanted Type Area Hardware Designer Device Identifier Shelf Expiration Date Model / Serial / Lot [employer]sto [employer] [id number] Inqu Paste Mix Plus Clinical Haematologist 10cc Bone Graft Hyaluronic Acid Poly - [id number] Implanted:Qty: 1 on 06/19/2021 by Kevin Avendaño MD at [facility] Other - see comments N/A: Spine Lumbar [employer] [id number] 08/23/2022 [id number] / / [id number] Core Link [id number] Renault 7mm 45mm Spine Pedicle Screw Bone Nonsterile 5500 Series - [id number] Implanted:Qty: 6 on 06/19/2021 by Kevin Avendaño MD at [facility] Screw Bilateral : Spine Lumbar Core Link [id number] / / Core Link [id number] Renault Screw Set 5500 Series - [id number] Implanted:Qty: 6 on 06/19/2021 by Kevin Avendaño MD at [facility] Screw Bilateral : Spine Lumbar Core Link [id number] / / Core Link [id number] Renault 5.5mm 70mm Line Prebent Alonso Spinal Nonsterile 5500 Series - [id number] Implanted:Qty: 2 on 06/19/2021 by Kevin Avendaño MD at [facility] N/A: Spine Lumbar Core Link [id number] / / Integra Lifesciences Glenn Dp-1011 Duragen Plus 1x1in Patch Resorbable Suturable Cranial Dura Graft - [id number] Implanted:Qty: 1 on 09/22/2021 by Kevin Avendaño MD at [facility] N/A: Back Integra Lifesciences Glenn [id number] 08/06/2023 [id number] / / [id number] [employer] Inqu Paste Mix Plus Clinical Haematologist 10cc Bone Graft Hyaluronic Acid Poly [id number] - [id number] Implanted:Qty: 1 on 09/22/2021 by Kevin Avendaño MD at [facility] N/A: Back Spot [employer]c [id number] 03/21/2023 [id number] / / [id number] Core Link Renault 7mm 40mm Spine Pedicle Screw Bone Nonsterile 5500 Series [id number] - [id number] Implanted:Qty: 2 on 09/22/2021 by Kevin Avendaño MD at [facility] N/A: Back Core Link [id number] / / Core Link Renault Screw Set 5500 Series [id number] - [id number] Implanted:Qty: 8 on 09/22/2021 by Kevin Avendaño MD at [facility] N/A: Back Core Link [id number] / / Core Link Renault 5.5mm 100mm Line Prebent Alonso Spinal Nonsterile 5500 Series [id number] - [id number] Implanted:Qty: 2 on 09/22/2021 by Kevin Avendaño MD at [facility] N/A: Back Core Link [id number] / / Integra Yi Chang Ou Sai [employer] Glenn Dp-1011 Duragen Plus 1x1in Patch Resorbable Suturable Cranial Dura Graft - [id number] Implanted:Qty: 1 on 09/28/2021 by Kevin Avendaño MD at [facility] N/A: Thoracic- Lumbar Spine Integra [employer]iences Glenn 03/07/2024 [id number] / / [id number] Procedures Procedure Name Priority Date/Time Associated Diagnosis Comments PSA DIAGNOSTIC Routine 05/12/2024 1:48 PM STRATEGIC PARTNERSHIP SPECIALIST Prostate cancer (HCC) TOTAL TESTOSTERONE Routine 05/12/2024 1: 48 PM STRATEGIC PARTNERSHIP SPECIALIST Prostate cancer (HCC) ECG 12-LEAD Routine 05/06/2024 2:45 PM STRATEGIC PARTNERSHIP SPECIALIST Cardiac arrhythmia, unspecified cardiac arrhythmia type from Last 3 Months Results * (ABNORMAL) Total testosterone (05/12/2024 1:48 PM STRATEGIC PARTNERSHIP SPECIALIST) Testosterone <5.0(L) 193.0 - 740.0 ng/dL Blood 05/12/2024 1:48 PM STRATEGIC PARTNERSHIP SPECIALIST 05/12/2024 2:03 PM STRATEGIC PARTNERSHIP SPECIALIST Result [facility] Jermain Lee MD LAB BLOOD ORDERABLES Final R esult Performing Organization Address [facility] de Phone Number [facility] [place] [address] * PSA diagnostic (05/12/2024 1:48 PM STRATEGIC PARTNERSHIP SPECIALIST) PSA-Total <0.02 <=6.20 ng/mL Comment: Interpretive Data AGE SEX REFERENCE INTERVAL 0 minutes-150 years Female None 0 minutes-49 years Male None 50-59 years Male 0-3.90 60-69 years Male 0-5.40 70-79 years Male 0-6.20 80-150 years Male 0-6.20 The [place] PSA Total assay procedure was used. Results from different manufacturers or methods may not be comparable. Serial testing should be performed using the same method. Current interpretive data last revised 21. Blood 05/12/2024 1:48 PM STRATEGIC PARTNERSHIP SPECIALIST 05/12/2024 2:03 PM STRATEGIC PARTNERSHIP SPECIALIST Result [facility] Jermain Lee MD LAB BLOOD ORDERABLES Final R esult Performing Organization Address [facility] de Phone Number [facility] [place] [address] * ECG 12 lead (05/06/2024 2:45 PM STRATEGIC PARTNERSHIP SPECIALIST) Jaime Vance III, MD ECG ORDERABLES Fin al Result from Last 3 Months Insurance [facility] PPO [employer]IGN [employer] BENEFIT PLAN [employer]MINISTRATION [facility] H[facility]/PPO Address: [address] [place] [phone] MEDICARE [facility] PPO MEDICARE FOR LIFE FOR LIFE MEDICARE [facility] HMO [facility] PPO Advance Directives For more information, please contact: [phone] * Full Code (Latest Code Status on File) Date Activated Date Inactivated Comments 09/28/2021 8:29 PM 10/02/2021 8:03 PM * Full Code Date Activated Date Inactivated Comments 09/22/2021 6:34 PM 09/28/2021 8:29 PM * Full Code Date Activated Date Inactivated Comments 09/21/2021 5:24 PM 09/22/2021 6:34 PM * Full Code Date Activated Date Inactivated Comments 06/19/2021 12:34 PM 06/20/2021 6:54 PM * Full Code Date Activated Date Inactivated Comments 10/21/2017 2:22 PM 10/22/2017 3:50 PM Care Teams Cable Splicer Helper Relationship Specialty Start Date End Date Po Howell MD [address] [place] [address] PCP - General Internal Medicine 09/10/17 Jaime Vance III, MD [address] [address] Consulting Physician Cardiology 09/29/21 Keihsa Joshi NP [address] [address] Nurse Practitioner Neurosurgery 09/29/21
--- OUTSIDE RECORDS SUMMARY | 2024-07-30 13:32 | XMS_ITS | Referral Summary ---
Author Organization [facility] Address [address] [place] [address] Care Team Providers Care Counseling Center Director Name Role Phone Po Howell MD Primary Care Provider [phone] Rajiv GORMAN MD, Jaime Marvin Unavailable [phone] Keisha Joshi NP Unavailable [phone] Encounters Date Type Department Care Team Description 06/10/2024 Telephone [facility] Radiation Oncology [address] [place] [address] Gaye Fields RN 05/12/2024 3:15 PM CARPENTER PROT[facility] Lab [facility] [address] [place] [id number] Prostate cancer (HCC) 05/12/2024 1:00 PM CARPENTER PROTOTYPE Office Visit [facility] Radiation Oncology [facility] [place] [address] Jermain Lee MD Prostate cancer (HCC) 05/06/2024 2:15 PM CARPENTER PROTOTYPE [facility] [address] [address] Jaime Vance III, MD Paroxysmal atrial fibrillation (HCC) (Primary Dx); Cardiac arrhythmia, unspecified cardiac arrhythmia type from Last 3 Months Allergies Active Allergy Reactions Criticality Noted Date [...] 05/14 Assessment & Plan (05/14/2022 3:48 PM CARPENTER PROTOTYPE): A normal TSH with elevated free T4 is indicative of abnormal thyroid binding globulin. This is related to Mr. Cordero's treatment with testosterone ( testosterone and estrogen therapy increases thyroid binding globulin ) This is more of lab artifact that has no clinical significance and therefore needs no treatment. Atrial fibrillation 10/04/2021 Assessment & Plan (05/06/2024 3:06 PM CARPENTER PROTOTYPE): Chronic, stable. Mildly symptomatic AF, with exacerbations probably in context of hot flashes associated with prostate cancer therapy. Recommend continued observation and anticoagulation. If symptoms worsen, could consider AAD therapy versus catheter ablation. --Continue apixaban 5 mg BID Assessment & Plan (05/01/2023 5:04 PM CARPENTER PROTOTYPE): Paroxysmal AF. Currently in sinus rhythm. Arrhythmia burden unclear but probably low. In absence of severe symptoms, continued rate control strategy is advised. [id number] = 3. Anticoagulation is recommended. Pt was recently given prescription for meloxicam. We discussed the risks associated with combined use of NSAIDs and DOACs, including severe bleeding. I encouraged him to discuss alternative analgesic options with his physicians. --Continue apixaban 5 mg BID Assessment & Plan (04/30/2022 1:36 PM CARPENTER PROTOTYPE): Stable. Unclear whether episodes of tachypalpitations during periods of stress represent AF or sinus tachycardia. We discussed methods to sort this out, including wearable monitors vs personal devices. The patient expressed interest in the [email or web address] mobile device, which I endorsed as a good option. He will consider. 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 He has severe stenosis at L4-5 greater than L4. He has had progression of his leg pain and claudication symptoms. He now wishes to pursue surgery. I have offered him L3-L5 lumbar decompression and fusion with instrumentation which we will perform at our earliest convenience. Assessment & Plan (05/04/2020 3:36 PM CARPENTER PROTOTYPE): Mr. Cordero has lumbar stenosis with neurogenic [...] 04/17/2018 Assessment & Plan (04/19/2018 4:43 PM CARPENTER PROTOTYPE): On multiple medicaitons. Need to recheck K and Mg levels. Prostate cancer 09/25/2017 Cancer Staging:Pathologic: pT2, pN0, cM0, Grade Group: 3 - Signed by Jermain Lee MD on 06/07/2023 Overview (09/25/2017): Added automatically from request for surgery [id number] Sleep disorder 07/10/2016 Overview (07/19/2017): Description: prior Hx sleep apnea; unable to tolerate CPAP. Better after weight loss Posterior vitreous detachment 07/10/2016 Overview (07/19/2017): Description: OU - floaters Rosacea 12/26/2015 Benign prostatic hyperplasia 12/26/2015 Gastroesophageal reflux disease 12/26/2015 Multinodular goiter 12/26/2015 Assessment & Plan (05/14/2022 3:49 PM CARPENTER PROTOTYPE): With subcentimeter nodules of no clinical significance Follow-up with ultrasound in a year is recommended Assessment & Plan (04/19/2018 4:43 PM CARPENTER PROTOTYPE): Clinically euthyroid, no local Sx or palpable nodules. Hyperlipidemia 12/26/2015 Assessment & Plan (04/19/2018 4:42 PM CARPENTER PROTOTYPE): Continue statin, lipid panel within goal. Hypogonadism in male 12/26/2015 Assessment & Plan (04/19/2018 4:43 PM CARPENTER PROTOTYPE): Hx Ca prostate. Managed by Dr. Flores Arthralgia of hip 09/20/2010 Knee pain 09/20/2010 Lumbago 12/14/2008 Hypertension 12/14/2008 Immunizations Immunization Administration Dates Next Due Hep A, Adult 07/28/2012,01/18/2012 Hep B Vaccine 06/20/2012,12/14/2011 Hep B, Unspecified 01/18/2012 Influenza Nasal, Unspecified 01/17/2012 Influenza, Quadrivalent, Spl it, Preservative Free, Intramuscular 12/26/2019 Influenza, Trivalent, Preser vative Free, Intramuscular 12/16/2014,04/08/2014,04/08/2014 Influenza, Unspecified 02/25/2018,02/25/2018, Pneumococcal Conjugate PCV 13 06/12/2019, 018 Pneumococcal Polysaccharide PPV23 04/08/2012,04/2012 Tdap 06/20/2012 ZOSTER LIVE 12/14/2011 ZOSTER Recombinant 12/26/2019,06/12/2019 Social History Tobacco Use Types Packs/Day Years Used Date Smoking Tobacco: Former Cigarettes 0.5 3 1 972 - 1975 Smokeless Tobacco: Never Tobacco Cessation:Counseling Given: Not [...] 09/25/2021 How often do you attend chur or christian services? 1 to 4 times per year 09/25/2021 Do you belong to any clubs o r organizations such as shinto groups, unions, fraternal or athletic groups, or [...] on file Legal Sex Male 3:58 AM CARPENTER PROTOTYPE Gender Identity Male 10/31/2018 2:56 PM CDT Sexual Orientation Straight 10/31/2018 2: 56 PM CDT Last Filed Vital Signs Vital Sign Reading Time Taken Comments Blood Pressure 136/82 05/06/2024 2:44 PM CARPENTER [employer] Pulse 74 05/06/2024 2:44 PM [employer]PENTER [employer] Temperature 36.3 C (97.4 F) 10/02/2021 7:37 AM CDT Respiratory Rate 16 07/09/2023 3:07 PM CDT Oxygen Saturation 92% 07/09/2023 3:07 PM CDT Inhaled Oxygen Concentration - - Weight 92.3 kg (203 lb 8 oz) 05/12/2024 1:15 PM [employer]PENTER [employer] Height 180.3 cm (5' 10.98 ) 05/12/2024 1:[address] Body Mass Index 28.4 05/12/2024 1:15 PM CARPENTER PROTOTYPE Plan of Treatment Not on file Goals Goal Patient Goal Type Associated Problems [...] likelihood of falling Lifestyle No Michelle Yu, ALEX Note: Below are four things you can [...] home safety. Medical Devices Implanted Type Area Tie Hacker Device Identifier Shelf Expiration Date Model / Serial / Lot [employer] [id number] Inqu Paste Mix Plus Filling And Stapling Machine Operator 10cc Bone Graft Hyaluronic Acid Poly - [id number] Implanted:Qty: 1 on 06/19/2021 by Kevin Avendaño MD at [facility] Other - see comments N/A: Spine Lumbar [employer] [id number] 08/23/2022 [id number] / / [id number] Core Link [id number] [place] 7mm 45mm Spine Pedicle Screw Bone Nonsterile 5500 Series - [id number] Implanted:Qty: 6 on 06/19/2021 by Kevin Avendaño MD at [facility] Screw Bilateral : Spine Lumbar Core Link [id number] / / Core Link [id number] [place] Screw Set 5500 Series - [id number] Implanted:Qty: 6 on 06/19/2021 by Kevin Avendaño MD at [facility] Screw Bilateral : Spine Lumbar Core Link [id number] / / Core Link [id number] [place] 5.5mm 70mm Line Prebent Alonso Spinal Nonsterile 5500 Series - [id number] Implanted:Qty: 2 on 06/19/2021 by Kevin Avendaño MD at [facility] N/A: Spine Lumbar Core Link [id number] 0 / / Integra [employer] Glenn Dp-1011 Duragen Plus 1x1in Patch Resorbable Suturable Cranial Dura Graft - [id number] Implanted:Qty: 1 on 09/22/2021 by Kevin Avendaño MD at [facility] N/A: Back Integra [employer] Glenn [id number] 08/06/2023 [id number] / / [id number] Inqu Paste Mix Plus Filling And Stapling Machine Operator 10cc Bone Graft Hyaluronic Acid Poly [id number] - [id number] Implanted:Qty: 1 on 09/22/2021 by Kevin Avendaño MD at [facility] N/A: Back [employer] [id number] 03/21/2023 [id number] / / [id number] Core Link [place] 7mm 40mm Spine Pedicle Screw Bone Nonsterile 5500 Series [id number] - [id number] Implanted:Qty: 2 on 09/22/2021 by Kevin Avendaño MD at [facility] N/A: Back Core Link 60599-19 / / Core Link [place] Screw Set 5500 Series 46550-24 - [id number] Implanted:Qty: 8 on 09/22/2021 by Kevin Avendaño MD at [facility] N/A: Back Core Link [id number] / / Core Link [place] 5.5mm 100mm Line Prebent Alonso Spinal Nonsterile 5500 Series [id number] - [id number] Implanted:Qty: 2 on 09/22/2021 by Kevin Avendaño MD at [facility] N/A: Back Core Link [id number] 0 / / Integra [employer] Glenn Dp-1011 Duragen Plus 1x1in Patch Resorbable Suturable Cranial Dura Graft - [id number] Implanted:Qty: 1 on 09/28/2021 by Kevin Avendaño MD at [facility] N/A: Thoracic- Lumbar Spine Integra [employer] Glenn 03/07/2024 [id number] / / [id number] Procedures Procedure Name Priority Date/Time Associated Diagnosis Comments PSA DIAGNOSTIC Routine 05/12/2024 1:48 PM CARPENTER PROTOT[employer] Prostate cancer (HCC) TOTAL TESTOSTERONE Routine 05/12/2024 1: 48 PM [employer]PENTER PROTOTYPE Prostate cancer (HCC) ECG 12-LEAD Routine 05/06/2024 2:45 PM [employer]PENTER [employer]YPE Cardiac arrhythmia, unspecified cardiac arrhythmia type from Last 3 Months Results * (ABNORMAL) Total testosterone (05/12/2024 1:48 PM CARPENTER PROTOTYPE) Testosterone <5.0(L) 193.0 - 740.0 ng/dL Blood 05/12/2024 1:48 PM [employer] 05/12/2024 2:03 PM [employer]PENTER [employer]YPE Jermain Lee MD LAB BLOOD ORDERABLES Final R esult Performing Organization Address [facility] de Phone Number [facility] Department [place] [address] * PSA diagnostic (05/12/2024 1:48 PM CARPENTER PROTOTYPE) PSA-Total <0.02 <=6.20 ng/mL Comment: Interpretive Data [...] last revised 21. Blood 05/12/2024 1:48 PM CARPENTER PROTOTYPE 05/12/2024 2:03 PM [employer]ENTER [employer]YPE Jermain Lee MD LAB BLOOD ORDERABLES Final R esult Performing Organization Address [facility] de Phone Number [facility] Department [place] [address] * ECG 12 lead (05/06/2024 2:45 PM CARPENTER PROTOTYPE) Jaime Vance III, MD ECG ORDERABLES Fin al Result from Last 3 Months Insurance [facility] LIFE [facility] PPO FOREIGN SERVICES BENEFIT PLAN MEDICARE [facility] PPO MEDICARE FOR LIFE FOR LIFE [facility] P[facility] Advance Directives For more information, please contact: [phone] * Full Code (Latest Code Status on [...] 2:22 PM 10/22/2017 3:50 PM Care Teams Counseling Center Director Relationship Specialty Start Date End Date Po Howell MD [address] [place] [address] PCP - General Internal Medicine 09/10/17 Jaime Vance III, MD [address] [facility] [address] [address] Consulting Physician Cardiology 09/29/21 Keisha Joshi NP [address] [facility] [address] [address] Nurse Practitioner Neurosurgery 09/29/21
--- OUTSIDE RECORDS SUMMARY | 2024-07-30 13:32 | XMS_ITS ---
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 This is related to Mr. Rooney's treatment with testosterone ( testosterone and estrogen therapy increases thyroid binding globulin ) This is more of lab artifact that has no clinical significance and therefore needs no treatment. Atrial fibrillation 10/04/2021 Assessment & Plan (05/06/2024 3:06 PM SANDER MACHINE): Chronic, stable. Mildly symptomatic AF, with exacerbations probably in context of hot flashes associated with prostate cancer therapy. Recommend continued observation and anticoagulation. If symptoms worsen, could consider AAD therapy versus catheter ablation. --Continue apixaban 5 mg BID Assessment & Plan (05/01/2023 5:04 PM SANDER MACHINE): Paroxysmal AF. Currently in sinus rhythm. Arrhythmia burden unclear but probably low. In absence of severe symptoms, continued rate control strategy is advised. [id number] = 3. Anticoagulation is recommended. Pt was recently given prescription for meloxicam. We discussed the risks associated with combined use of NSAIDs and DOACs, including severe bleeding. I encouraged him to discuss alternative analgesic options with his physicians. --Continue apixaban 5 mg BID Assessment & Plan (04/30/2022 1:36 PM SANDER MACHINE): Stable. Unclear whether episodes of tachypalpitations during periods of stress represent AF or sinus tachycardia. We discussed methods to sort this out, including wearable monitors vs personal devices. The patient expressed interest in the [employer] mobile device, which I endorsed as a good option. He will consider. [id number] = 3 (age, htn, dmII) --Amiodarone has [...] & Plan (12/21/2021 11:12 AM CDT): Mr. Rooney has unilateral weakness in his distal right [...] & Plan (12/12/2021 9:20 AM CDT): Mr. Rooney continues to have severe weakness in the [...] AVM were seen. I discussed with Mr. Rooney and his the that other vascular malformation [...] & Plan (09/14/2021 3:00 PM CDT): Mr. Rooney is status post L3-5 decompression and fusion [...] claudication Assessment & Plan (04/26/2021 5:09 PM SANDER MACHINE): Mr. Rooney has lumbar stenosis with neurogenic claudication. He has severe stenosis at L4-5 greater than L4. He has had progression of his leg pain and claudication symptoms. He now wishes to pursue surgery. I have offered him L3-L5 lumbar decompression and fusion with instrumentation which we will perform at our earliest convenience. Assessment & Plan (05/04/2020 3:36 PM SANDER MACHINE): Mr. Rooney has lumbar stenosis with neurogenic claudication. He [...] 04/17/2018 Assessment & Plan (04/19/2018 4:43 PM SANDER MACHINE): On multiple medicaitons. Need to recheck K and Mg levels. Prostate cancer 09/25/2017 Cancer Staging:Pathologic: pT2, pN0, cM0, Grade Group: 3 - Signed by Jermain Lee MD on 06/07/2023 Overview (09/25/2017): Added automatically from request for surgery [id number] Sleep disorder 07/10/2016 Overview (07/19/2017): Description: prior Hx sleep apnea; unable to tolerate CPAP. Better after weight loss Posterior vitreous detachment 07/10/2016 Overview (07/19/2017): Description: OU - floaters Rosacea 12/26/2015 Benign prostatic hyperplasia 12/26/2015 Gastroesophageal reflux disease 12/26/2015 Multinodular goiter 12/26/2015 Assessment & Plan (05/14/2022 3:49 PM SANDER MACHINE): With subcentimeter nodules of no clinical significance Follow-up with ultrasound in a year is recommended Assessment & Plan (04/19/2018 4:43 PM SANDER MACHINE): Clinically euthyroid, no local Sx or palpable nodules. Hyperlipidemia 12/26/2015 Assessment & Plan (04/19/2018 4:42 PM SANDER MACHINE): Continue statin, lipid panel within goal. Hypogonadism in male 12/26/2015 Assessment & Plan (04/19/2018 4:43 PM SANDER MACHINE): Hx Ca prostate. Managed by Dr. Flores Arthralgia of hip 09/20/2010 Knee pain 09/20/2010 Lumbago 12/14/2008 Hypertension 12/14/2008 Current Treatment and Therapy Plans Eligard Injection - 22.5 mg every 12 weeks* Plan Start Date:07/23/2023 Plan Provider:Jermain Lee MD Linked Problems Prostate cancer (HCC) Treatment Medications leuprolide (3 month) (ELIGAR D) Past Treatment and Therapy Plans Specialty Infusion Treatment Plan Name Start Date Discontinue Date Treatment Medications Discontinue Reason Plan Provider Eligard Injection - 7.5 mg every 4 weeks 06/18/2023 07/19/2023 leuprolide (monthly) (ELIGARD) Patient Preference Jermain Lee MD Eligard Injection - 45 mg every 24 weeks 06/18/2023 06/18/2023 leuprolide (ELIGARD) Change in Level of Care Jermain Lee MD Radiation Treatments (No Episode) * Course [id number]_24 07/23/2023 - 09/16/2023 Treatment Period Energy Fraction Dose Fractions Total Dose Plans Planned PROSTATE BST 09/03/2023 - 09/16/2023 180 9 / 1,620 PELVIS 07/23/2023 - 08/30/2023 220 28 / 6,160 Reference Points Delivered PTV_Prost 09/03/2023 - 09/16/2023 1,620 PTV_Pelvis 07/23/2023 - 08/30/2023 6,160
--- OUTSIDE RECORDS SUMMARY | 2024-07-30 13:33 | XMS_ITS | Continuity of Care Document ---
Author Name [facility] Organization [facility] Care Team Providers Care Business Support Associate Name Role Phone [facility] Unavailable Unavailable Problems Combined list of problems from Department of Defense and [facility] Affairs facilities. It does not include entries that were removed or entered in error. Problem Status Onset Date Problem Type Date of Resolution Comments Source Arthritis of both knees Active Condition [facility] Benign prostatic hyperplasia Active Condition [facility] Calcific tendinitis of right shoulder Active Condition [facility] CH HEP C W/O COMA Active Condition 2004 Entered By: TOMASA CAMARA Comment: CURED WITH TREATMENT [facility] Closed fracture of styloid process of ulna Active Condition [facility] Closed fracture radial styloid Active Condition [facility] Dyslipidemia (ICD-9-CM 272.4) Active Condition [facility] Erectile dysfunction (SNOMED CT 880751427) Active Condition [facility] ESOPHAGEAL REFLUX Active Condition ANGIE JAVED Exposure to potentially hazardous substance ([facility] [id number]) Active Condition Jul 23 4 Entered By: GAGE MONDRAGON Comment: Entered automatically through [facility] Problem List documentation program [facility] Gastro-esophageal reflux disease (SNOMED CT 602937637) Active Condition [facility] GERD * (ICD-9-CM 530.81) Active Condition [facility] Hepatitis C, Chronic Active Condition Nov 14, 2004 Entered By: JESSICA NIEVES Comment: s/p antiviral rx 2004 Entered By: ARMANDO VEGAS Comment: Sustained responder. Repeat HCV Ab of no diagnostic value [facility] Hyperlipidemia Active Condition [facility] Hypertension * (ICD-9-CM 401.9) Active Condition [facility] HYPERTENSION NOS Active Condition [facility] Hypertrophy (Benign) of Prostate without Urinary obstruction Active Condition [facility] Hypogonadism Active Condition [facility] Obesity (SNOMED CT 189065990) Active Condition [facility] Pancreatic Cyst/Pseudocyst Active Condition [facility] Prostate cancer Active Condition Jun 24, 2018 Entered By: GA MCCRAY Comment: s/p prostatectomy September 2017 [facility] Refraction Error (ICD-9-CM 367.9) Active Condition [facility] Seborrheic Dermatitis, Unspecified (ICD-9-CM 690.10) Active Condition [facility] Sleep Apnea W/Hypersomnulence Active Condition [facility] Spinal stenosis of lumbar region (SNOMED CT 95278667) Active Condition [facility] Ulnar Neuropathy (ICD-9-CM 355.9) Active Condition [facility] Ulnar Neuropathy (ICD-9-CM 355.9) Active Condition Nov 14 Entered By: JESSICA NIEVES Comment: EYAL, s/p ulnar release Rt elbow 1991 [facility] Xerophthalmia * (ICD-9-CM 372.53) Active Condition [facility] ACUTE URI NOS Inactive Condition 09/25/2001 [facility] ADV EFF MED/BIOL SUB NOS Inactive Condition 08/10/2002[facility] Benign prostatic hyperplasia Inactive Condition 07/14/2003 [facility] CHRONIC HEPATITIS NEC Inactive Condition 08/10/2002[facility] HEPATITIS C W/O COMA Inactive Condition 01/14/2003 [facility] OTH SPEC GASTRITS W/O HEMOR Inactive Condition 08/10/2002[facility] OTHER DIS VIR&CHLA/WART UNSP Inactive Condition 01/20/2003 [facility] SCREENING FOR ALCOHOLISM Inactive Condition 01/14/2003 [facility] Diagnosis: ICD-10-CM E11.9 Type 2 diabetes mellitus without complications Active Diagnosis [facility] Diagnosis: ICD-10-CM N52.9 Male erectile dysfunction, unspecified Active Diagnosis [facility] Diagnosis: ICD-10-CM 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 Active Diagnosis [facility] Diagnosis: ICD-10-CM M17.0 Bilateral primary osteoarthritis of knee Active Diagnosis [facility] Diagnosis: ICD-10-CM Z01.818 Encounter for other preprocedural examination Active Diagnosis [facility] Diagnosis: ICD-10-CM Z71.2 Person consulting for explanation of exam or test findings Active Diagnosis [facility] Diagnosis: ICD-10-CM I10 Essential (primary) hypertension Active Diagnosis [facility] Diagnosis: ICD-10-CM L71.9 Rosacea, unspecified Active Diagnosis [facility] Diagnosis: ICD-10-CM M75.31 Calcific tendinitis of right shoulder Active Diagnosis [facility] Diagnosis: ICD-10-CM M25.511 Pain in right shoulder Active Diagnosis [facility] Diagnosis: ICD-10-CM M17.12 Unilateral primary osteoarthritis, left knee Active Diagnosis [facility] Medications Combined list of outpatient medications from Department of Defense and [facility] facilities.Medications provided include 1) outpatient medications from the last 15 months, and 2) patient-reported medications. Medication Details Route Status Patient Instructions Prescription Expires Prescription Number Last Dispense Date Ordering Provider Order Date Order Qty Source ACETAMINOPH EN 325MG TAB TAKE TWO TABLETS BY MOUTH EVERY 6 HOURS NEEDED FOR PAIN CAUTION: DO NOT EXCEED 4000MG PER DAY ACETAMIN OPHEN (APAP) FROM ALL MEDS. ORAL ACTIVE 02/04/2025 [id number] DYLAN SPENCER KARL C III 2023 500 [facility] AMLODIPINE BESYLATE (AMLODIPINE BESYLATE), 5 MG, TABLET, ORAL, [employer] 90 ea. BOTTLE Active [id number] 2023 90 Pharmac y Data Transac tion Service Facilit y APIXABAN 5MG TAB TAKE ONE TABLET BY MOUTH TWICE A DAY ORAL ACTIVE Marcelo BURGESS 2022 [facility] ASPIRIN 81MG TAB,EC TAKE ONE TABLET BY MOUTH ONCE A DAY ORAL ACTIVE ITALO CASTORENA 2007 [facility] BICALUTAMID E (BICALUTAMI DE), 50MG, TABLET, ORAL, [employer] [facility], 100 ea. BOTTLE Active [id number] 2023 30 Pharmac y Data Transac tion Service Facilit y CARBOXYMETH YLCELLULOSE NA 1% GEL,OPH INSTILL 2 DROPS INTO BOTH EYES FOUR TIMES A DAY NEEDED FOR DRY EYES OPHTHA LMIC ACTIVE 01/23/2025 [id number] Jhon NOLASCO MARILEE B 2023 45 [facility] CARBOXYMETH YLCELLULOSE NA 1% GEL,OPH INSTILL 2 DROPS INTO BOTH EYES FOUR TIMES A DAY NEEDED FOR DRY EYES OPHTHA LMIC DISCONT INUED 01/23/2025 [id number] Jhon NOLASCO MARILEE B 2023 15 [facility] CIPROFLOXAC IN HCL (CIPROFLOXA ROBIN HCL), 250 MG, TABLET, ORAL, [employer], 100 ea. BOTTLE Cancele d [id number] : 2023 0 Pharmac y Data Transac tion Service Facilit y CIPROFLOXAC IN HCL (CIPROFLOXA ROBIN HCL), 250 MG, TABLET, ORAL, PACK PHARMACEUT, 100 ea. BOTTLE Cancele d [id number] : 2023 0 Pharmac y Data Transac tion Service Facilit y CIPROFLOXAC IN HCL (CIPROFLOXA ROBIN HCL), 500MG, TABLET, ORAL, PACK PHARMACEUT, 100 ea. BOTTLE Active [id number] 2023 14 Pharmac y Data Transac tion Service Facilit y CLONAZEPAM (clonazepam ), 1 MG, TABLET, ORAL, ADVAGEN PHARMA, 100 ea. BOTTLE Active [id number] 2023 90 Pharmac y Data Transac tion Service Facilit y CLONAZEPAM 0.5MG TAB TAKE ONE TABLET BY MOUTH THREE TIMES A DAY NEEDED ORAL ACTIVE ITALO CASTORENA 2010 [facility] CYCLOBENZAP RINE HCL 10MG TAB TAKE ONE TABLET BY MOUTH THREE TIMES A DAY NEEDED ORAL ACTIVE CHAPEL, MARISACHENG Lamar 2017 [facility] Allie DICLOFENAC NA 50MG TAB,EC TAKE ONE TABLET BY MOUTH EVERY MORNING AND EVENING ORAL ACTIVE KELLITALO POLLARD Francisca 2010 [facility] Allie DILTIAZEM (EQV-TIAZAC AB4) 300MG 24HR CAP TAKE 1 CAPSULE BY MOUTH EVERY MORNING BEFORE A MEAL ORAL ACTIVE CHAPEL, MARISACHENG K 2017 [facility] Allie ELIQUIS (APIXABAN), 5 MG, TABLET, ORAL, [facility] , 60 ea. BOTTLE Cancele d [id number] : 2023 0 Pharmac y Data Transac tion Service Facilit y ESZOPICLONE 2MG TAB TAKE ONE TABLET BY MOUTH AT BEDTIME ORAL ACTIVE ITALO CASTORENA 2010 [facility] Allie FISH OIL 1000MG (500MG DHA/EPA) CAP,ORAL TAKE 2 CAPSULES BY MOUTH TWICE A DAY ORAL ACTIVE Marcelo BURGESS 2020 [facility] Kelley HYDROCHLORO THIAZIDE (HYDROCHLOR OTHIAZIDE), 12.5MG, TABLET, ORAL, ACTAVIS ELIZABE, 100 ea. BOTTLE Active [id number] 2023 90 Pharmac y Data Transac tion Service Facilit y HYDROCHLORO THIAZIDE (HYDROCHLOR OTHIAZIDE), 12.5MG, TABLET, ORAL, ACTAVIS ELIZABE, 100 ea. BOTTLE Cancele d [id number] : 2023 0 Pharmac y Data Transac tion Service Facilit y HYDROCHLORO THIAZIDE TAB TAKE BY MOUTH ONCE A DAY ORAL ACTIVE Marcelo BURGESS 2022 [facility] Allie KETOCONAZOL E 2 % TOP SHAM [120ML] USE SHAMPOO TO AFFECTED AREA(S) ONCE A DAY FOR DANDRUFF (EXTERNA L USE ONLY) (SHAKE WELL) 01/18/2024 [id number] RHETT GRAHAM 2023 120 [facility] KETOCONAZOL E 2% SHAMPOO USE SHAMPOO TO AFFECTED AREA(S) ONCE A DAY FOR DANDRUFF (EXTERNA L USE ONLY) (SHAKE WELL) TOPICA L 01/18/2024 [id number] BECKIE GRAHAM 2022 120 [facility] LOSARTAN POTASSIUM (LOSARTAN POTASSIUM), 100 MG, TABLET, ORAL, ZYDUS PHARMACEU, 90 ea. BOTTLE Active [id number] 2023 90 Pharmac y Data Transac tion Service Facilit y LOSARTAN POTASSIUM 100MG TAB TAKE ONE TABLET BY MOUTH ONCE A DAY ORAL ACTIVE Marcelo BURGESS 2020 [facility] meloxicam (U/D) 7.5 MG ORAL TAB TAKE ONE TABLET BY MOUTH ONCE A DAY *TAKE WITH A FULL GLASS OF WATER 07/19/2024 [id number] CORA WOLFE 2023 30 [facility] meloxicam (U/D) 7.5 MG ORAL TAB TAKE ONE TABLET BY MOUTH ONCE A DAY *TAKE WITH A FULL GLASS OF WATER Discont inued 04/29/2024 [id number] CORA WOLFE 2023 30 [facility] MELOXICAM 7.5MG TAB TAKE ONE TABLET BY MOUTH ONCE A DAY *TAKE WITH A FULL GLASS OF WATER ORAL DISCONT INUED 07/19/2024 [id number] ANNA WOLFE 2023 30 [facility] MELOXICAM 7.5MG TAB TAKE ONE TABLET BY MOUTH ONCE A DAY *TAKE WITH A FULL GLASS OF WATER ORAL DISCONT INUED 04/29/2024 [id number] ANNA WOLFE 2023 30 [facility] MELOXICAM 7.5MG TAB TAKE ONE TABLET BY MOUTH ONCE A DAY *TAKE WITH A FULL GLASS OF WATER ORAL 11/29/2023 [id number] MARYJOJEROD SHOAIB 2023 30 [facility] METFORMIN HCL 1000MG TAB TAKE ONE-HALF TABLET BY MOUTH TWICE A DAY WITH MEALS ORAL ACTIVE Marcelo BURGESS 2020 [facility] metroNIDAZ 0.75% TOP CRM [45]/CLNSR[ 480] APPLY SPARINGL Y TO AFFECTED AREA(S) THREE TIMES A DAY FOR ROSACEA (TOPICAL USE ONLY) 01/18/2024 [id number] GRAHAMRHETT 2023 45 [facility] METRONIDAZO LE (METRONIDAZ OLE), 500MG, TABLET, ORAL, [employer], 500 ea. BOTTLE Active [id number] 2023 20 Pharmac y Data Transac tion Service Facilit y METRONIDAZO LE 0.75% CREAM,TOP APPLY SPARINGL Y TO AFFECTED AREA(S) THREE TIMES A DAY FOR ROSACEA (TOPICAL USE ONLY) TOPICA L 01/18/2024 [id number] GRAHAMBECKIE HEMALATHAJEROD 2022 45 [facility] NAPROXEN 250MG TAB TAKE ONE TABLET BY MOUTH EVERY 12 HOURS NEEDED FOR PAIN TAKE WITH FOOD. ORAL ACTIVE 02/04/2025 [id number] DLYAN SPENCER III 2023 180 [facility] OXYCODONE HCL 10MG/ACETAM INOPHEN 325MG TAB TAKE ONE TABLET BY MOUTH EVERY 6 HOURS NEEDED ORAL ACTIVE Marcelo BURGESS 2021 [facility] OZEMPIC (semaglutid e), .25 OR 0.5, PEN INJCTR, SUBCUT, MAURO NORDISK, 3 ml SYRINGE Active [id number] 2023 9 Pharmac y Data Transac tion Service Facilit y PANTOPRAZOL E NA 40MG TAB,EC TAKE ONE TABLET BY MOUTH EVERY MORNING BEFORE A MEAL ORAL ACTIVE VIDHYA MCCRAY 2017 [facility] Polyvinyl Alcohol 1.4% + Povidone 0.6% + Preservativ e Free Solution, Ophthalmic INSTILL 1 DROP IN BOTH EYES TWICE A DAY FOR DRY EYE(S) 01/23/2024 [id number] JOÃO SURESH 2023 50 [facility] POLYVINYL ALCOHOL 1.4%/POVIDO NE (PF) SOLN,OPH INSTILL 1 DROP IN BOTH EYES TWICE A DAY FOR DRY EYE(S) OPHTHA LMIC 01/23/2024 [id number] Chase SURESH C 2022 50 [facility] PRAMIPEXOLE DIHYDROCHLO RIDE (PRAMIPEXOL E DI-HCL), 0.25 MG, TABLET, ORAL, TORRENT PHARMAC, 90 ea. BOTTLE Active [id number] 2023 90 Pharmac y Data Transac tion Service Facilit y PRAVASTATIN NA 40MG TAB TAKE ONE TABLET BY MOUTH EVERY EVENING ORAL ACTIVE Marcelo BURGESS 2020 [facility] [place] Kelley SEMAGLUTIDE 0.5MG/0.375 ML INJ,SOLN,PE N,1.5ML INJECT 0.25MG (0.1875M L) UNDER THE SKIN EVERY WEEK SUBCUT ANEOUS ACTIVE Marcelo BURGESS 2020 [facility] [place] Kelley TADALAFIL 5MG TAB TAKE ONE TABLET BY MOUTH AT BEDTIME ORAL ACTIVE VIDHYA MCCRAY 2017 [facility] TAMSULOSIN HCL (TAMSULOSIN HCL), 0.4 MG, CAP.SR 24H, ORAL, [employer], 100 ea. BOTTLE Cancele d [id number] : 2023 0 Pharmac y Data Transac tion Service Facilit y TAMSULOSIN HCL (TAMSULOSIN HCL), 0.4 MG, CAP.SR 24H, ORAL, [employer], 100 ea. BOTTLE Active [id number] 2023 90 Pharmac y Data Transac tion Service Facilit y TAMSULOSIN HCL (TAMSULOSIN HCL), 0.4 MG, CAP.SR 24H, ORAL, [employer], 100 ea. BOTTLE Cancele d [id number] : 2023 0 Pharmac y Data Transac tion Service Facilit y TAMSULOSIN HCL (TAMSULOSIN HCL), 0.4 MG, CAP.SR 24H, ORAL, [employer], 100 ea. BOTTLE Active [id number] 2023 10 Pharmac y Data Transac tion Service Facilit y TESTOSTERON E (ANDROGEL) 1% 5GM/PKT GEL APPLY 1 SPARINGL Y TO AFFECTED AREA(S) EVERY MORNING TOPICA L ACTIVE ITALO CASTORENA 2009 [facility] TESTOSTERON E 1.62% 20.25MG/PUM P GEL,TOP APPLY 3 PUMPS (60.75MG ) TO AFFECTED AREA(S) ONCE A DAY FOR LOW TESTOSTE IMELDA . APPLY TO CLEAN DRY SKIN OF UPPER ARMS OR UPPER SHOULDER ONLY TOPICA L 12/04/2023 [id number] TEHSA GAXIOLA 2023 2 [facility] Testosteron e 20.25 mg/Actuatio n, Gel/Jelly, Topical APPLY 3 PUMPS (60.75MG ) TO AFFECTED AREA(S) ONCE A DAY FOR LOW TESTOSTE IMELDA . APPLY TO CLEAN DRY SKIN OF UPPER ARMS OR UPPER SHOULDER ONLY 12/04/2023 [id number] SAM GAXIOLA 2023 2 [facility] TIZANIDINE HCL 4MG TAB TAKE ONE TABLET BY MOUTH THREE TIMES A DAY ORAL ACTIVE Marcelo BURGESS 2021 [facility] TRAMADOL HCL (tramadol HCl), 50 MG, TABLET, ORAL, AMNEAL PHARMACE, 500 ea. BOTTLE Cancele d [id number] : 2023 0 Pharmac y Data Transac tion Service Facilit y TRAMADOL HCL (tramadol HCl), 50 MG, TABLET, ORAL, AMNEAL PHARMACE, 500 ea. BOTTLE Active [id number] 2023 120 Pharmac y Data Transac tion Service Facilit y TRAMADOL HCL 50MG TAB TAKE TWO TABLETS BY MOUTH FOUR TIMES A DAY NEEDED ORAL ACTIVE Marcelo BURGESS 2020 [facility] TRETINOIN 0.05% CREAM,TOP APPLY LIGHTLY TO AFFECTED AREA(S) AT BEDTIME FOR ACNE. TOPICA Dorcas 01/18/2024 [id number] GRAHAMBECKIE 2022 45 [facility] Tretinoin 0.5mg/mL, (Retin-A), Cream, Topical APPLY LIGHTLY TO AFFECTED AREA(S) AT BEDTIME FOR ACNE. 01/18/2024 [id number] RHETT GRAHAM 2023 45 [facility] VENLAFAXINE HCL ER (venlafaxin e HCl), 75 MG, CAP ER 24H, ORAL, [employer], 90 ea. BOTTLE Active [id number] 2023 30 Pharmac y Data Transac tion Service Facilit y Allergies, Adverse Reactions, Alerts Combined list of allergies from Department of Defense and Veterans Affairs facilities. It does not include entries that were removed or entered in error. Substance Category Reaction Severity Reaction type Status Date Reported Comments Source LISINOPRIL Propensity to adverse reactions to drug (finding) Cough active 9 [facility] Immunizations Combined list of available immunizations from the Department of Defense and Veterans Affairs facilities. Immunization Series Date Given Administered By Site Reaction Lot Number CVX Code Drug Product Trainer Status Comments Source TDAP 2022 CIARAN NUÑEZ RIGHT DELTO ID [id number] 115 complet ed [facility] (PFIZER), MRNA, LNP-S, BIVALENT BOOSTER, PF, 30 MCG/0.3 ML DOSE 1 2021 300 complet ed PFR; [id number]; 3 [facility] INFLUENZA VACCINE, QUADRIVALENT, ADJUVANTED 2021 205 complet ed [facility] N PNEUMOCOCCAL CONJUGATE PCV20, POLYSACCHARID E [id number] CONJUGATE, ADJUVANT, PF 2021 216 complet ed [facility] COVID-19 (Kumbuya), MRNA, LNP-S, PF, 30 MCG/0.3 ML DOSE 3 2021 208 complet ed [facility] COVID-19 (PFIZER), MRNA, LNP-S, PF, 30 MCG/0.3 ML DOSE 3 2020 208 complet ed [facility] PNEUMOCOCCAL POLYSACCHARID E PPV23 [address] [facility] [address] [facility] COVID-[facility] ([place]umbuya), MRNA, LNP-S, PF, 30 MCG/0.3 ML DOSE 2 2020 208 complet ed [facility] COVID-19 (Kumbuya), MRNA, LNP-S, PF, 30 MCG/0.3 ML DOSE 1 2020 208 complet ed [facility] INFLUENZA, UNSPECIFIED FORMULATION 2 2017 88 complet ed HISTORICA L INFORMATI ON - FROM OTHER REGISTRY, [facility] N INFLUENZA, INJECTABLE, QUADRIVALENT, PRESERVATIVE FREE 2017 150 complet ed [facility] INFLUENZA, UNSPECIFIED FORMULATION 2015 [address] job [facility] ZOSTER LIVE 2014 121 complet ed [facility] INFLU[facility]ZA, SEASONAL, INJECTABLE, PRESERVATIVE FREE 1 2014 140 complet ed HISTORICA L INFORMATI ON - FROM OTHER REGISTRY, [facility], UNSPECIFIED FORMULATION 2013 88 complet ed [facility] INFLUENZA, UNSPECIFIED FORMULATION 2012 88 complet [facility] hepatitis A vaccine, adult dosage 2 2012 Unknown, Provider [id number] 52 [facility] complet ed hepatitis A vaccine, adult dosage DoD hepatitis B vaccine, adult dosage 3 2012 Unknown, Provider [id number] [id number] 43 [facility] ([facility]) complet ed hepatitis B vaccine, adult dosage DoD tetanus toxoid, reduced diphtheria toxoid, and acellular pertu is vaccine, adsorbed 1 2012 Unknown, Provider [id number] [id number] 115 [facility] ([facility]) complet ed tetanus toxoid, reduced diphtheri a toxoid, and acellular pertussis vaccine, adsorbed DoD PNEUMOCOCCAL POLYSACCHARID E PPV23 1 2012 33 complet ed HISTORICA L INFORMATI ON - FROM OTHER REGISTRY, [facility] N TDAP 2012 115 complet [facility] N hepatitis B vaccine, adult dosage 2 2011 Unknown, Provider [id number] 1BB 43 [facility] ([facility]) complet ed hepatitis B vaccine, adult dosage DoD hepatitis A vaccine, adult dosage 1 2011 Unknown, Provider [id number] [id number] 52 [facility] complet ed hepatitis A vaccine, adult dosage DoD hepatitis B vaccine, adult dosage 1 2011 Unknown, Provider [id number] 1BB 43 [facility] ([facility]) complet ed hepatitis B vaccine, adult dosage DoD zoster vaccine, live 1 2011 Unknown, Provider [id number] [employer] (MSD) complet ed zoster vaccine, live DoD NOVEL INFLUENZA-H1N 1-09, ALL FORMULATIONS 2008 128 complet ed [facility] INFLUENZA, UNSPECIFIED FORMULATION 2008 88 complet ed [facility] INFLUENZA, UNSPECIFIED FORMULATION [address] [facility] PNEUMOCOCCAL, UNSPECIFIED FORMULATION [address] [facility] Results Combined list of recent chemistry, hematology and other laboratory results from Department of Defense and Veterans Affairs, ranging from 15 months to all on record, depending upon the facility. Order Name Results Value Reference Range Date Interpretation Specimen Comments Source HEP C VIRUS RNA By PCR (QUANT) HEPATITIS C VIRUS RNA [UNITS/VOL UME] (VIRAL LOAD) IN SERUM OR PLASMA BY ISRAEL WITH PROBE DETECTION <15[IU]/ mL 02/03 Specimen Type: PLASMA Comment: HCV RNA Not Detected HCV RNA Not Detected Reference Range: Not Detected IU/mL Not Detected Log IU/mL For additional information please refer to http://BigTree.[employer] Storage/faq/FA Q22v1 (This link is being provided for information al/ educational purposes only.) Test Performed by [email or web address], [address] [place] [address] Malcolm Feng M.D., Ph.D., Director of Laboratorie s , CLIA [id number] Ordering Provider: BISHOP SPENCER III Report Released Date/Time: Feb 04, 2024 02:30 PM Reporting Lab: [facility] [address] [place] [id number] Performing Lab: [facility] [address] [place] [address] [facility] HEP C VIRUS RNA By PCR (QUANT) HEPATITIS C VIRUS RNA [LOG UNITS/VOLU ME] (VIRAL LOAD) IN SERUM OR PLASMA BY ISRAEL WITH PROBE DETECTION <1.18 02/03 Specimen Type: PLASMA Comment: HCV RNA Not Detected HCV RNA Not Detected Reference Range: Not Detected IU/mL Not Detected Log IU/mL For additional information please refer to http://Bitstamp/faq/FA Q22v1 (This link is being provided for information al/ educational purposes only.) Test Performed by [email or web address], [address] [place] [address] Malcolm W Jung, M.D., Ph.D., Director of Laboratorie s , [place] [id number] Ordering Provider: BISHOP SPENCER III Report Released Date/Time: Feb 04, 2024 02:30 PM Reporting Lab: [address] [address] Performing Lab: [facility] [id number] [place] [id number] [facility] HEP C Ab HCV Ab (STL) HEPATITIS C VIRUS AB [PRESENCE] IN SERUM REACTIVE 02/03 Specimen Type: SERUM Comment: Clinical correlation suggested. Ordering Provider: BISHOP SPENCER III Report Released Date/Time: Feb 04, 2024 02:30 PM Reporting Lab: [address] [address] Performing Lab: [address] [address] [facility] LIPID PANEL (STL) CHOLESTERO L [MASS/VOLU ME] IN SERUM OR PLASMA 145 mg/dL 0 - 200 02/03 Specimen Type: PLASMA Comment: No hemolysis noted. Ordering Provider: BISHOP SPENCER III Report Released Date/Time: Feb 04, 2024 01:19 PM Reporting Lab: [address] [address] Performing Lab: [address] [address] [facility] LIPID PANEL (STL) TRIGLYCERI DE [MASS/VOLU ME] IN SERUM OR PLASMA 77 mg/dL 0 - 150 02/03 Specimen Type: PLASMA Comment: No hemolysis noted. Ordering Provider: BISHOP SPENCER III Report Released Date/Time: Feb 04, 2024 01:19 PM Reporting Lab: [address] [address] Performing Lab: [address] [address] [facility] LIPID PANEL (STL) CHOLESTERO L IN LDL [MASS/VOLU ME] IN SERUM OR PLASMA BY IVANNA N 56 mg/dL 02/03 Specimen Type: PLASMA Comment: No hemolysis noted. Ordering Provider: BISHOP SPENCER III Report Released Date/Time: Feb 04, 2024 01:19 PM Reporting Lab: [place] [address] [facility] [address] Performing Lab: [address] [address] [facility] LIPID PANEL (STL) CHOLESTERO L IN HDL [MASS/VOLU ME] IN SERUM OR PLASMA 74 mg/dL 40 02/03 Specimen Type: PLASMA Comment: No hemolysis noted. Ordering Provider: BISHOP SPENCER III Report Released Date/Time: Feb 04, 2024 01:19 PM Reporting Lab: [address] [address] Performing Lab: [address] [address] [facility] HGA1C HEMOGLOBIN A1C/HEMOGL OBIN.TOTAL IN BLOOD 5.4 4.0 - 6.0 02/03 Specimen Type: BLOOD No comment entered. Ordering Provider: BISHOP SPENCER III Report Released Date/Time: Feb 04, 2024 01:19 PM Reporting Lab: [address] [address] Performing Lab: [address] [address] [facility] RENAL PANEL CREATININE [MASS/VOLU ME] IN SERUM OR PLASMA 0.79 mg/dL 0.7 - 1.3 02/03 Specimen Type: PLASMA Comment: No hemolysis noted. Ordering Provider: BISHOP SPENCER III Report Released Date/Time: Feb 04, 2024 01:19 PM Reporting Lab: [address] [address] Performing Lab: [address] [address] [facility] RENAL PANEL UREA NITROGEN [MASS/VOLU ME] IN SERUM OR PLASMA 17.5 mg/dL 9.0 - 25.0 02/03 Specimen Type: PLASMA Comment: No hemolysis noted. Ordering Provider: BISHOP SPENCER III Report Released Date/Time: Feb 04, 2024 01:19 PM Reporting Lab: [address] [address] Performing Lab: [address] [address] [facility] RENAL PANEL GLUCOSE [MASS/VOLU ME] IN SERUM OR PLASMA 99 mg/dL 72 - 99 02/03 Specimen Type: PLASMA Comment: No hemolysis noted. Ordering Provider: BISHOP SPENCER III Report Released Date/Time: Feb 04, 2024 01:19 PM Reporting Lab: [address] [address] Performing Lab: [address] [address] [facility] RENAL PANEL SODIUM [MOLES/VOL UME] IN SERUM OR PLASMA 141 meq/L 136 - 145 02/03 Specimen Type: PLASMA Comment: No hemolysis noted. Ordering Provider: BISHOP SPENCER III Report Released Date/Time: Feb 04, 2024 01:19 PM Reporting Lab: [address] [address] Performing Lab: [address] [address] [facility] RENAL PANEL POTASSIUM [MOLES/VOL UME] IN SERUM OR PLASMA 4.1 meq/L 3.5 - 5 02/03 Specimen Type: PLASMA Comment: No hemolysis noted. Ordering Provider: BISHOP SPENCER III Report Released Date/Time: Feb 04, 2024 01:19 PM Reporting Lab: [address] [address] Performing Lab: [facility] [address] [facility] [address] [facility] RENAL PANEL CHLORIDE [MOLES/VOL UME] IN SERUM OR PLASMA 104 meq/L 98 - 107 02/03 Specimen Type: PLASMA Comment: No hemolysis noted. Ordering Provider: BIHSOP SPENCER III Report Released Date/Time: Feb 04, 2024 01:19 PM Reporting Lab: [address] [address] Performing Lab: [address] [address] [facility] RENAL PANEL CARBON DIOXIDE, TOTAL [MOLES/VOL UME] IN SERUM OR PLASMA 28 meq/L 22 - 31 02/03 Specimen Type: PLASMA Comment: No hemolysis noted. Ordering Provider: BISHOP SPENCER III Report Released Date/Time: Feb 04, 2024 01:19 PM Reporting Lab: [address] [address] Performing Lab: [address] [address] [facility] RENAL PANEL CALCIUM [MASS/VOLU ME] IN SERUM OR PLASMA 10.3 mg/dL 8.4 - 10.4 02/03 Specimen Type: PLASMA Comment: No hemolysis noted. Ordering Provider: BISHOP SPENCER III Report Released Date/Time: Feb 04, 2024 01:19 PM Reporting Lab: [address] [address] Performing Lab: [address] [address] [facility] RENAL PANEL PHOSPHATE [MASS/VOLU ME] IN SERUM OR PLASMA 3.7 mg/dL 2.3 - 4.7 02/03 Specimen Type: PLASMA Comment: No hemolysis noted. Ordering Provider: BISHOP SPENCER III Report Released Date/Time: Feb 04, 2024 01:19 PM Reporting Lab: [address] [place] [address] Performing Lab: [address] [address] [facility] RENAL PANEL ALBUMIN [MASS/VOLU ME] IN SERUM OR PLASMA 4.6 g/dL 3.4 - 5 02/03 Specimen Type: PLASMA Comment: No hemolysis noted. Ordering Provider: BISHOP SPENCER III Report Released Date/Time: Feb 04, 2024 01:19 PM Reporting Lab: [place] [phone] Performing Lab: [place] [phone] RENAL PANEL GLOMERULAR FILTRATION RATE/1.73 SQ M.PREDICTE D [VOLUME RATE/AREA] IN SERUM, PLASMA OR BLOOD BY CREATININE -BASED FORMULA (CKD-EPI 2020) 96.2 60 02/03 Specimen Type: PLASMA Comment: No hemolysis noted. Ordering Provider: BISHOP SPENCER III Report Released Date/Time: Feb 04, 2024 01:19 PM Reporting Lab: [place] [phone] Performing Lab: [address] [address] [facility] CBC LEUKOCYTES [#/VOLUME] IN BLOOD BY AUTOMATED COUNT 7.8 10*3/uL 3.6 - 11.2 02/03 Specimen Type: BLOOD No comment entered. Ordering Provider: BISHOP SPENCER III Report Released Date/Time: Feb 04, 2024 01:19 PM Reporting Lab: [address] [address] Performing Lab: [address] [address] [facility] CBC ERYTHROCYT ES [#/VOLUME] IN BLOOD BY AUTOMATED COUNT 4.80 10*6/uL 4.10 - 5.70 02/03 Specimen Type: BLOOD No comment entered. Ordering Provider: BISHOP SPENCER III Report Released Date/Time: Feb 04, 2024 01:19 PM Reporting Lab: [place] [phone] Performing Lab: [address] [address] [facility] CBC HEMOGLOBIN [MASS/VOLU ME] IN BLOOD 14.9 g/dL 13.1 - 16.8 02/03 Specimen Type: BLOOD No comment entered. Ordering Provider: BISHOP SPENCER III Report Released Date/Time: Feb 04, 2024 01:19 PM Reporting Lab: [place] [address] Performing Lab: [address] [phone] CBC HEMATOCRIT [VOLUME FRACTION] OF BLOOD 44.1 38.2 - 48.4 02/03 Specimen Type: BLOOD No comment entered. Ordering Provider: BISHOP SPENCER III Report Released Date/Time: Feb 04, 2024 01:19 PM Reporting Lab: [place] [phone] Performing Lab: [address] [phone] [address] CBC MCV [ENTITIC VOLUME] BY AUTOMATED COUNT 91.9 fL 80.0 - 100.0 02/03 Specimen Type: BLOOD No comment entered. Ordering Provider: BISHOP SPENCER III Report Released Date/Time: Feb 04, 2024 01:19 PM Reporting Lab: [address] [address] Performing Lab: [address] [address] [facility] CBC MCH [ENTITIC MASS] BY AUTOMATED COUNT 31.0 pg 27.0 - 34.0 02/03 Specimen Type: BLOOD No comment entered. Ordering Provider: BISHOP SPENCER III Report Released Date/Time: Feb 04, 2024 01:19 PM Reporting Lab: [address] [address] Performing Lab: [address] [address] [facility] CBC MCHC [MASS/VOLU ME] BY AUTOMATED COUNT 33.8 g/dL 33.0 - 36.0 02/03 Specimen Type: BLOOD No comment entered. Ordering Provider: BISHOP SPENCER III Report Released Date/Time: Feb 04, 2024 01:19 PM Reporting Lab: [address] [address] Performing Lab: [address] [phone] [address] CBC PLATELETS [#/VOLUME] IN BLOOD BY AUTOMATED COUNT 242 10*3/uL 150 - 400 02/03 Specimen Type: BLOOD No comment entered. Ordering Provider: BISHOP SPENCER III Report Released Date/Time: Feb 04, 2024 01:19 PM Reporting Lab: [address] [address] Performing Lab: [address] [address] [facility] CBC PLATELET MEAN VOLUME [ENTITIC VOLUME] IN BLOOD BY AUTOMATED COUNT 8.6 fL 7.5 - 11.2 02/03 Specimen Type: BLOOD No comment entered. Ordering Provider: BISHOP SPENCER III Report Released Date/Time: Feb 04, 2024 01:19 PM Reporting Lab: [address] [address] Performing Lab: [address] [address] [facility] CBC ERYTHROCYT E DISTRIBUTI ON WIDTH [RATIO] BY AUTOMATED COUNT 13.2 11.8 - 15.1 02/03 Specimen Type: BLOOD No comment entered. Ordering Provider: BISHOP SPENCER III Report Released Date/Time: Feb 04, 2024 01:19 PM Reporting Lab: [facility] [address] [facility] [address] Performing Lab: [facility] [address] [facility] [address] [facility] CBC LYMPHOCYTE S/100 LEUKOCYTES IN BLOOD BY AUTOMATED COUNT 11 02/03 Specimen Type: BLOOD No comment entered. Ordering Provider: BISHOP SPENCER III Report Released Date/Time: Feb 04, 2024 01:19 PM Reporting Lab: [facility] [address] [facility] [address] Performing Lab: [facility] [address] [facility] [address] [facility] CBC MONOCYTES/ 100 LEUKOCYTES IN BLOOD BY AUTOMATED COUNT 7 02/03 Specimen Type: BLOOD No comment entered. Ordering Provider: BISHOP SPENCER III Report Released Date/Time: Feb 04, 2024 01:19 PM Reporting Lab: [facility] [address] [facility] [address] Performing Lab: [facility] [address] [facility] [address] [facility] CBC NEUTROPHIL S/100 LEUKOCYTES IN BLOOD BY AUTOMATED COUNT 81 02/03 Specimen Type: BLOOD No comment entered. Ordering Provider: BISHOP SPENCER III Report Released Date/Time: Feb 04, 2024 01:19 PM Reporting Lab: [facility] [address] [facility] [address] Performing Lab: [facility] [address] [facility] [address] [facility] CBC EOSINOPHIL S/100 LEUKOCYTES IN BLOOD BY AUTOMATED COUNT 1 02/03 Specimen Type: BLOOD No comment entered. Ordering Provider: BISHOP SPENCER III Report Released Date/Time: Feb 04, 2024 01:19 PM Reporting Lab: [facility] [address] [facility] [address] Performing Lab: [place] [address] [facility] [address] [facility] CBC BASOPHILS/ 100 LEUKOCYTES IN BLOOD BY AUTOMATED COUNT 0 02/03 Specimen Type: BLOOD No comment entered. Ordering Provider: BISHOP SPENCER III Report Released Date/Time: Feb 04, 2024 01:19 PM Reporting Lab: [address] [address] Performing Lab: [address] [address] [facility] CBC LYMPHOCYTE S [#/VOLUME] IN BLOOD BY AUTOMATED COUNT 0.83 10*3/uL 0.77 - 4.50 02/03 Specimen Type: BLOOD No comment entered. Ordering Provider: BISHOP SPENCER III Report Released Date/Time: Feb 04, 2024 01:19 PM Reporting Lab: [address] [address] Performing Lab: [address] [address] [facility] CBC MONOCYTES [#/VOLUME] IN BLOOD BY AUTOMATED COUNT 0.53 10*3/uL 0.19 - 0.80 02/03 Specimen Type: BLOOD No comment entered. Ordering Provider: BISHOP SPENCER III Report Released Date/Time: Feb 04, 2024 01:19 PM Reporting Lab: [address] [address] Performing Lab: [address] [address] [facility] CBC NEUTROPHIL S [#/VOLUME] IN BLOOD BY AUTOMATED COUNT 6.35 10*3/uL 2.10 - 8.00 02/03 Specimen Type: BLOOD No comment entered. Ordering Provider: BISHOP SPENCER III Report Released Date/Time: Feb 04, 2024 01:19 PM Reporting Lab: [address] [address] Performing Lab: [address] [address] [facility] CBC EOSINOPHIL S [#/VOLUME] IN BLOOD BY AUTOMATED COUNT 0.04 10*3/uL 0.00 - 0.60 02/03 Specimen Type: BLOOD No comment entered. Ordering Provider: BISHOP SPENCER III Report Released Date/Time: Feb 04, 2024 01:19 PM Reporting Lab: [address] [address] Performing Lab: [address] [phone] [address] CBC BASOPHILS [#/VOLUME] IN BLOOD BY AUTOMATED COUNT 0.02 10*3/uL 0.00 - 0.20 02/03 Specimen Type: BLOOD No comment entered. Ordering Provider: BISHOP SPENCER III Report Released Date/Time: Feb 04, 2024 01:19 PM Reporting Lab: [address] [address] Performing Lab: [address] [phone] [address] HEPATIC FUNTION PANEL (STL) PROTEIN [MASS/VOLU ME] IN SERUM OR PLASMA 7.6 g/dL 6 - 8.6 02/03 Specimen Type: PLASMA No comment entered. Ordering Provider: Carolyn SHARP Report Released Date/Time: Feb 05, 2024 03:29 PM Reporting Lab: [address] [address] Performing Lab: [address] [address] [facility] HEPATIC FUNTION PANEL (STL) ALBUMIN [MASS/VOLU ME] IN SERUM OR PLASMA 4.6 g/dL 3.4 - 5 02/03 Specimen Type: PLASMA No comment entered. Ordering Provider: Carolyn SHARP Report Released Date/Time: Feb 05, 2024 03:29 PM Reporting Lab: [address] [address] Performing Lab: [address] [address] [facility] HEPATIC FUNTION PANEL (STL) BILIRUBIN. TOTAL [MASS/VOLU ME] IN SERUM OR PLASMA 0.7 mg/dL 0.2 - 1.2 02/03 Specimen Type: PLASMA No comment entered. Ordering Provider: Carolyn SHARP Report Released Date/Time: Feb 05, 2024 03:29 PM Reporting Lab: [address] [address] Performing Lab: [address] [address] [facility] HEPATIC FUNTION PANEL (STL) ALKALINE PHOSPHATAS E [ENZYMATIC ACTIVITY/V OLUME] IN SERUM OR PLASMA 51 U/L 40 - 150 02/03 Specimen Type: PLASMA No comment entered. Ordering Provider: Carolyn SHARP Report Released Date/Time: Feb 05, 2024 03:29 PM Reporting Lab: [address] [address] Performing Lab: [address] [address] [facility] HEPATIC FUNTION PANEL (STL) ASPARTATE AMINOTRANS FERASE [ENZYMATIC ACTIVITY/V OLUME] IN SERUM OR PLASMA 24 U/L 5 - 34 02/03 Specimen Type: PLASMA No comment entered. Ordering Provider: Carolyn SHARP Report Released Date/Time: Feb 05, 2024 03:29 PM Reporting Lab: [address] [address] Performing Lab: [address] [address] [facility] HEPATIC FUNTION PANEL (STL) ALANINE AMINOTRANS FERASE [ENZYMATIC ACTIVITY/V OLUME] IN SERUM OR PLASMA 30 U/L 8 - 40 02/03 Specimen Type: PLASMA No comment entered. Ordering Provider: Carolyn SHARP Report Released Date/Time: Feb 05, 2024 03:29 PM Reporting Lab: [place] [address] Performing Lab: [place] [phone] HEPATIC FUNTION PANEL (STL) BILIRUBIN. CONJUGATED [MASS/VOLU ME] IN SERUM OR PLASMA 0.3 mg/dL 0 - 0.5 02/03 Specimen Type: PLASMA No comment entered. Ordering Provider: Carolyn SHARP Report Released Date/Time: Feb 05, 2024 03:29 PM Reporting Lab: [place] [address] Performing Lab: [address] GLUCOSE, BLOOD-po ct (STL) GLUCOSE [MASS/VOLU ME] IN BLOOD BY AUTOMATED TEST STRIP 85 mg/dL 72 - 99 02/03 Specimen Type: BLOOD Comment: Test Performed by: [id number] Meter #: [id number] Ordering Provider: BISHOP SPENCER III Report Released Date/Time: Feb 04, 2024 04:04 PM Reporting Lab: [place] [address] Performing Lab: [address] GLUCOSE, BLOOD-po ct (STL) GLUCOSE [MASS/VOLU ME] IN BLOOD BY AUTOMATED TEST STRIP 99 mg/dL 72 - 99 11/13 Specimen Type: BLOOD Comment: Test Performed by: [id number] Meter #: [id number] Ordering Provider: LIO SALCIDO Report Released Date/Time: Nov 13, 2022 03:32 PM Reporting Lab: [place] [address] Performing Lab: [address] [place] [address] [facility] PROST. SPECIFIC AG.(PB-S TL) PROSTATE SPECIFIC AG [MASS/VOLU ME] IN SERUM OR PLASMA 0.133 ng/mL 0 - 4 10/29 Specimen Type: SERUM Comment: The listed sex of this patient may not be a typical indication for this test. Therefore, reference ranges or interpretiv e criteria listed may not be valid. Clinical correlation suggested. Ordering Provider: BRIAN KENNEDY IN T Report Released Date/Time: May 07, 2022 12:24 PM Reporting Lab: [address] [address] Performing Lab: [address] [address] [facility] Vital Signs Combined list of inpatient and outpatient Vital Signs from Department of Defense and Veterans Affairs, ranging from 12 months to all on record, depending upon the facility. Vital Sign Value Date Comments Source SYSTOLIC BLOOD PRESSURE 120 06/04/2024 13:11:19 [facility] DIASTOLIC BLOOD PRESSURE 76 06/04/2024 13:11:19 [facility] PULSE OXIMETRY 97 06/04/2024 13:11:19 [facility] WEIGHT 202.7 06/04/2024 13:11:19 [facility] BMI 28 kg/m2 06/04/2024 13:11:19 [facility] PAIN 5 06/04/2024 13:11:19 [facility] TEMPERATURE 97.3 06/04/2024 13:11:19 [facility] PULSE 92 06/04/2024 13:11:19 [facility] RESPIRATION 16 06/04/2024 13:11:19 [facility] SYSTOLIC BLOOD PRESSURE 156 04/28/2024 13:06:05 [facility] DIASTOLIC BLOOD PRESSURE 73 04/28/2024 13:06:05 [facility] PULSE OXIMETRY 99 04/28/2024 13:06:05 Carolyn [facility] WEIGHT 207.4 04/28/2024 13:06:05 [facility] Dorcas [facility] BMI 29 kg/m2 04/28/2024 13:06:05 Dorcas [facility] PAIN 4 04/28/2024 13:06:05 [facility] Dorcas [facility] HEIGHT 71 04/28/2024 13:06:05 [facility] Dorcas [facility] TEMPERATURE 97.5 04/28/2024 13:06:05 [facility] PULSE 76 04/28/2024 13:06:05 [facility] Dorcas [facility] RESPIRATION 18 04/28/2024 13:06:05 [facility] SYSTOLIC BLOOD PRESSURE 130 02/04/2024 13:05:22 [facility] DIASTOLIC BLOOD PRESSURE 90 02/04/2024 13:05:22 [facility] PULSE OXIMETRY 99 02/04/2024 13:05:22 Meche [facility] WEIGHT 199.88 02/04/2024 13:05:22 [facility] Dorcas [facility] BMI 28 kg/m2 02/04/2024 13:05:22 [facility] Dorcas [facility] PAIN 4 02/04/2024 13:05:22 [facility] Dorcas [facility] TEMPERATURE 98.8 02/04/2024 13:05:22 [facility] PULSE 83 02/04/2024 13:05:22 [facility] Dorcas [facility] RESPIRATION 16 02/04/2024 13:05:22 [facility] SYSTOLIC BLOOD PRESSURE 130 12/30/2023 13:06:14 [facility] DIASTOLIC BLOOD PRESSURE 87 12/30/2023 13:06:14 [facility] PULSE OXIMETRY 98 12/30/2023 13:06:14 Meche [facility] WEIGHT 204 12/30/2023 13:06:14 [facility] BMI 29 kg/m2 12/30/2023 13:06:14 [facility] PAIN 7 12/30/2023 13:06:14 [facility] HEIGHT 71 12/30/2023 13:06:14 [facility] TEMPERATURE 97.9 12/30/2023 13:06:14 [facility] PULSE 75 12/30/2023 13:06:14 [facility] RESPIRATION 16 12/30/2023 13:06:14 [facility] SYSTOLIC BLOOD PRESSURE 142 09/03/2023 13:33:39 [facility] DIASTOLIC BLOOD PRESSURE 95 09/03/2023 13:33:39 [facility] PULSE OXIMETRY 98 09/03/2023 13:33:39 [facility] WEIGHT 201.4 09/03/2023 13:33:39 [facility] BMI 28 kg/m2 09/03/2023 13:33:39 [facility] PAIN 7 09/03/2023 13:33:39 [facility] TEMPERATURE 97.6 09/03/2023 13:33:39 [facility] PULSE 74 09/03/2023 13:33:39 [facility] RESPIRATION 16 09/03/2023 13:33:39 [facility] Encounters Combined list of: 1) Encounters from Department of [facility] Affairs facilities going backup to the last 18 months, not all VA inpatient encounters are included; 2) Encounters from the Department of Defense facilities going backup to 280 months. Location Location Details Encounter Type Encounter Number Reason For Visit Attending Provider ADM Date DC Date Status Disposition Source [facility] THERAPEUTI C EXERCISES [id number] Diagnos is: ICD-10- CM M17.12 Unilate ral primary osteoar thritis , left knee PREMA CAMACHO 02/[address] [facility] Outpatient Encounter [id number] SINAI SURESH TTHEW C 02/06 [facility] THERAPEUTI C EXERCISES [id number] Diagnos is: ICD-10- CM M25.511 Pain in right shoulde r PREMA CAMACHO J 03/12 [facility] Outpatient Encounter [id number] 03/29 [facility] OFFICE O/P EST MOD 30 MIN [id number] Diagnos is: ICD-10- CM M17.0 Bilater al primary osteoar thritis of knee AYDEE WOLFE A 04/29 [facility] Outpatient Encounter [id number] 04/29 [facility] OFFICE O/P EST LOW 20 MIN [id number] Diagnos is: ICD-10- CM 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.1 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 SAM GAXIOLA 06/03 [facility] Outpatient Encounter [id number] BRANDEE SU A 08/04 [facility] Outpatient Encounter [id number] 09/02 [facility] OFFICE O/P EST MOD 30 MIN [id number] Diagnos is: ICD-10- CM M17.0 Bilater al primary osteoar thritis of knee ME ADEBAYO AYALA S 09/02 [facility] Outpatient Encounter [id number] SHRUTHI WOODY A 10/27 [facility] Outpatient Encounter [id number] 11/03 [facility] OFFICE O/P EST MOD 30 MIN [id number] Diagnos is: ICD-10- CM M75.31 Calcifi c tendini tis of right shoulde r JAMIE,NH ADEBAYO S 12/29 [facility] Outpatient Encounter [id number] 12/29 [facility] OFFICE O/P EST MOD 30 MIN [id number] Diagnos is: ICD-10- CM L71.9 Rosacea , unspeci fied ERNESTO,I DYLAN K 01/22 [facility] OFFICE O/P EST MOD 30 MIN [id number] Diagnos is: ICD-10- CM M17.0 Bilater al primary osteoar thritis of knee ARON SHOAIB 02/03 [facility] Outpatient Encounter [id number] Diagnos is: ICD-10- CM I10 Essenti al (primar y) hyperte nsion SERBAN,RAD U 02/19 [facility] OFF/OP EST MAY X REQ PHY/QHP [id number] Diagnos is: ICD-10- CM Z71.2 Person consult ing for explana tion of exam or test finding carolyn CHINMAY,KOJO Jones 02/25 [facility] HC PRO PHONE CALL 5-10 MIN [id number] Diagnos is: ICD-10- CM Z01.818 Encount er for other preproc edural examina tion Karen CORONADO 03/11 [facility] Outpatient Encounter [id number] 03/12 [facility] Outpatient Encounter [id number] CARMELCHARITY Dinora 03/13 [facility] OFFICE O/P EST MOD 30 MIN [id number] Diagnos is: ICD-10- CM M17.0 Bilater al primary osteoar thritis of knee ME ADEBAYO AYALA S 04/28 [facility] Outpatient Encounter [id number] 04/28 [facility] OFFICE O/P EST HI 40 MIN [id number] Diagnos is: ICD-10- CM 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 [facility] OFFICE O/P EST MOD 30 MIN [id number] Diagnos is: ICD-10- CM E11.9 Type 2 diabete s mellitu s without complic ations DANIEL SHAH Chaz 07/21 [facility] Social History Combined list of available smoking, tobacco, and other social history from Department of Defense and Veterans Affairs facilities. Social History Type Response Date Comment [facility] Tobacco smoking status NHIS [facility] FORMER USER 11/13/2022 [facility] of [facility]2022 [facility] History of tobacco use [place] FORMER USER 09/05/2021 [facility] History of tobacco use QUIT TOBACCO >7 Y EARS AGO 09/17/2017 [facility] History of tobacco use QUIT TOBACCO >7 Y EARS AGO 07/23/2016 [facility] History of tobacco use QUIT TOBACCO >7 Y EARS AGO 06/20/2015 [facility] History of tobacco use QUIT TOBACCO >7 Y EARS AGO 05/31/2014 [facility] History of tobacco use LIFETIME NON-USER OF TOBACCO 03/16/2013 [facility] History of tobacco use LIFETIME NON-USER OF TOBACCO 05/08/2006 [facility] History of tobacco use CURRENT NON-TOBAC CO USER-HX OF USE 12/31/2005 [facility] History of tobacco use CURRENT NON-TOBAC CO USER-HX OF USE 07/02/2005 [facility] History of tobacco use NON-TOBACCO USER > 1 YEAR OR LONGER 05/16/[facility] History of tobacco use LIFETIME NON-TOBA OPEN [employer]AR[employer] WORKER USER 07/01/[facility] History of tobacco use CURRENT NON-SMOKER 09/24/2002[facility] History of tobacco use NON-TOBACCO USER > 1 YEAR OR LONGER 09/24/2002[facility] This section is an empty social history section. [facility] Plan of Care List of future care activities from Department of Veterans Affairs facilities. Additional future care activities may be listed in the Assessment and Plan section. Date/Time Care Activity Care Activity Detail Facili ty 08/03/2024 AMBULATORY - MEDICINE AMBULATORY - MEDICI [facility]
--- OUTSIDE RECORDS SUMMARY | 2024-07-30 13:33 | XMS_ITS | Clinical Summary ---
Author Organization [facility] Address [address] [place] [address] Care Team Providers Care Automotive Refinisher Name Role Phone Po Howell MD Primary Care Provider [phone] Allergies No known active allergies Medications pantoprazole EC (PROTONIX) 40 MG tablet Take 1 tablet (40 mg total) by mouth daily. Active cyclobenzaprine (FLEXERIL) 10 MG tablet Take 1 tablet (10 mg total) by mouth 3 (three) times daily as needed for Muscle Spasms. Active clonazePAM (KLONOPIN) 1 MG disintegrating tablet Take 1 tablet (1 mg total) by mouth daily. At bedtime Active eszopiclone (LUNESTA) 1 MG tablet Take 3 tablets (3 mg total) by mouth nightly at bedtime. at bedtime. Active testosterone 12.5 MG/ACT (1%) Gel Acti ve amiodarone (PACERONE) 200 MG tablet Take 1 tablet (200 mg total) by mouth 2 (two) times daily. Active apixaban (ELIQUIS) 5 MG tabletIndications: Atrial Fibrillation Take 1 tablet (5 mg total) by mouth 2 (two) times daily. Indications: Atrial Fibrillation Active hydroCHLOROthiazid e (MICROZIDE) 12.5 MG tablet Take 1 tablet (12.5 mg total) by mouth every morning. Active rosuvastatin (CRESTOR) 10 MG tablet Take 1 tablet (10 mg total) by mouth nightly at bedtime. Active metFORMIN (GLUCOPHAGE) 500 MG tablet Take 1 tablet (500 mg total) by mouth 2 (two) times daily with meals. Active pramipexole (MIRAPEX) 0.25 MG tablet Take 1 tablet (0.25 mg total) by mouth daily. At bedtime Active losartan (COZAAR) 100 MG tablet Take 1 tablet (100 mg total) by mouth daily. In am Active oxyCODONE-acetamin ophen (PERCOCET) 5-325 MG tablet Take 1 tablet by mouth every 6 (six) hours as needed for Pain (for backpain). Active Active Problems Patient Care Coordination No te Formatting of this note migh t be different from the original. PT Precautions: dx with prostate cancer 1 month ago, Problem Noted Date Diagnosed Date Acute confusion 02/21/2023 Confusion 02/20/2023 Immunizations Immunization Administration Dates Next Due PFIZER COVID-19 (ORIGINAL FORMULATION, PURPLE CAP) mRNA, LNP-S, PF, 30 MCG/0.3 ML DOSE 08/21/2021,12/16/2020,07/01/2020,2020 PFIZER COVID-19 BIVALENT (12 +) mRNA, LNP-S, PF, 30 MCG/0.3 ML DOSE 01/30/2022 Social History Tobacco Use Types Packs/Day Years Used Date Smoking Tobacco: Former Cigarettes Q uit: 04/08/1973 Smokeless Tobacco: Never Tobacco Cessation:Counseling Given: Not Answered Alcohol Use Standard Drinks/Week Comments Yes 0 (1 standard drink = 0.6 oz pur e alcohol) socially [facility] Sendoidities Answer Date Recorded In the past 12 months has [facility] [employer], gas, oil, or water [employer] threatened to shut off services in your home? Patient refused 02/20/2023 Humiliation, Afraid, Rape, and Kick questionnair e Answer Date Recorded Within the last year, have y ou been afraid of your partner or ex-partner? Patient declined 02/20/2023 Within the last year, have y ou been humiliated or emotionally abused in other ways by your partner or ex-partner? Patient declined 02/20/2023 Within the last year, have y ou been kicked, hit, slapped, or otherwise physically hurt by your partner or ex-partner? Patient declined 02/20/2023 Within the last year, have y ou been raped or forced to have any kind of sexual activity by your partner or ex-partner? Patient declined 02/20/2023 Social Connection and Isolation Panel [NHANES] A nswer Date Recorded In a typical week, how many times do you talk on the phone with family, friends, or neighbors? Once a week 02/20/2023 How often do you get togethe r with friends or relatives? Patient declined 02/20/2023 How often do you attend congregational or mandaen serv ices? Patient declined 02/20/2023 Do you belong to any clubs o r organizations such as congregational groups, unions, fraternal or athletic groups, or school groups? Patient declined 02/20/2023 How often do you attend meet ings of the clubs or organizations you belong to? Patient declined 02/20/2023 Are you , , di vorced, , never , or living with a partner? 02/20/2023 AUDIT-C Answer Date Recorded Q1: How often do you have a drink containing alc ohol? 2-4 times a month 02/20/2023 Q2: How many drinks containi ng alcohol do you have on a typical day when you are drinking? 1 or 2 02/20/2023 Q3: How often do you have si x or more drinks on one occasion? Patient declined 02/20/2023 Overall Financial Resource Strain (CARDIA) Answe r Date Recorded How hard is it for you to pa y for the very basics like food, housing, medical care, and heating? Patient declined 02/20/2023 [facility] - Occupational Stress Questionnaire Answer Date Recorded Do you feel stress - tense, restless, nervous, or anxious, or unable to sleep at night because your mind is troubled all the time - these days? Patient declined 02/20/2023 Exercise Vital Sign Answer Date Recorde d On average, how many days pe r week do you engage in moderate to strenuous exercise (like a brisk walk)? 3 days 02/20/2023 On average, how many minutes do you engage in exercise at this level? 30 min 02/20/2023 Hunger Vital Sign Answer Date Recorded Within the past 12 months, y ou worried that your food would run out before you got the money to buy more. Patient declined Within the past 12 months, t he food you bought just didn't last and you didn't have money to get more. Patient declined PRAPARE - Transportation Answer Date Re corded In the past 12 months, has l ack of transportation kept you from medical appointments or from getting medications? No 02/06 In the past 12 months, has l ack of transportation kept you from meetings, work, or from getting things needed for daily living? No 02/20/2023 Housing Stability Vital Sign Answer Kiel e Recorded In the last 12 months, was t here a time when you were not able to pay the mortgage or rent on time? No 02/21/20 23 In the last 12 months, how many places have you lived? 1 02/20/2023 In the last 12 months, was t here a time when you did not have a steady place to sleep or slept in a chcf (including now)? Patient refused 02/20/2023 Sex and Gender Information Value Date Recorded Sex Assigned at Not on file Legal Sex Male 7:28 PM CDT Gender Identity Not on file Sexual Orientation Not on file Last Filed Vital Signs Vital Sign Reading Time Taken Comments Blood Pressure 151/107 02/22/2023 10:34 AM TROUBLE LOCATER Pulse 83 02/22/2023 10:34 AM TROUBLE LOCATER Temperature 36.6 C (97.9 F) 02/22/2023 10:34 AM TROUBLE LOCATER Respiratory Rate 18 02/22/2023 10:34 AM TROUBLE LOCATER Oxygen Saturation 96% 02/22/2023 10:34 AM TROUBLE LOCATER Inhaled Oxygen Concentration - - Weight 85.1 kg (187 lb 9.6 oz) 02/22/2023 5:00 A M TROUBLE LOCATER Height 180.3 cm (5' 11 ) 02/21/2023 3:23 AM TROUBLE LOCATER Body Mass Index 26.16 02/21/2023 3:23 AM TROUBLE LOCATER Plan of Treatment Health Maintenance Due Date Last Done Comments Colorectal Cancer Screening Colonoscopy (10 Years) 1955 Hepatitis C 02/24/1972 Annual Medicare Wellness Visit 2019 COVID-19 Vaccine ( season) 2023 01/30/2022, 08/21/2021, 12/16/2020, Additional history exists RSV Immunization or 60+ Years (1 - 1-dose 75+ series) 2029 DTaP, Tdap and Td Vaccines (4 - Td or Tdap) 07/16/2032 07/16/2022, 06/20/2012, 04/08/2012 Zoster Vaccines Completed 07/19/2020, 12/07, 06/12/2019, Additional history exists Pneumococcal Vaccine: 50+ Years Completed 09/05/2021, 07/19/2020, 06/12/2019, Additional history exists Meningococcal B Vaccine Aged Out No l onger eligible based on patient's age to complete this topic Meningococcal Vaccine Aged Out No ar stas eligible based on patient's age to complete this topic RSV Immunizations Under 20 Months Aged Out No longer eligible based on patient's age to complete this topic Insurance [address]ET [address] MEDICARE Advance Directives * Full Code (Latest Code Status on File) Date Activated Date Inactivated Comments 02/20/2023 11:13 PM 02/22/2023 6:51 PM * Full Code Date Activated Date Inactivated Comments 02/20/2023 11:12 PM 02/20/2023 11:13 PM Care Teams Automotive Refinisher Relationship Specialty Start Date End Date Po Howell MD PCP - General 10/13/16
--- OUTSIDE RECORDS SUMMARY | 2024-07-30 13:33 | XMS_ITS | Clinical Summary ---
Author Organization [facility] Address [address] [place] [address] Phone Care Team Providers Care Clockmaker Apprentice Name Role Phone Unavailable Primary Care Provider Unavailabl e Social History Tobacco Use Types Packs/Day Years Used Date Smoking Tobacco: Never Assessed Sex and Gender Information Value Date Recorded Sex Assigned at Not on file Legal Sex Male 10:59 PM CDT Gender Identity Not on file Sexual Orientation Not on file Plan of Treatment Health Maintenance Due Date Last Done Comments Pre-Diabetes and Diabetes Screening 1955 COLORECTAL SCREENING 1999 Colorectal Cancer Screening 1999 FIT-DNA Q 3 years 1999 FIT/FOBT Q 1 year 1999 Flex Sig/CT Colonography Q 5 years 1999 DTAP/TDAP/TD VACCINES (2 - T d or Tdap) 06/20/2022 06/20/2012 INFLUENZA VACCINE (#1) 2023 , 12/16/2014, 04/08/2014, Additional history exists PNEUMOCOCCAL VACCINE 50+ YEA RS (3 of 3 - PCV20 or PCV21) 06/11/2024 06/12/2019, 05/02/2017, 04/08/2012 RSV VACCINE (60+ or ) (1 - 1-dose 75+ series) 2029 ZOSTER VACCINE Completed 12/26/2019, 0309/2019, 12/14/2011
--- OUTSIDE RECORDS SUMMARY | 2024-07-30 13:33 | XMS_ITS | Encounter Summary ---
Author Name [facility] [place] [facility] [place] Address [address] [place] [address] Support Name Relationship Address Phone ERLIN CORDERO Next of Kin [address] [place] [address] ERLIN CORDERO Emergency Contact [address] [place] [address] [address] CORDERO Next [address] [place] [address] Care Team Providers Care Salesperson Women'S Hats Name Role Phone SHOAIB SHARP Primary Care Provider ROSETTA Arndt Unavailable Insurance Providers: All historical and current Section Date Range: From patient's date of to the date document was created. This section includes the names of all active insurance providers for the patient. Insurance Provider Type of Coverage Plan Name Start of Policy Coverage End of Policy Coverage Group Number Member ID Insurance Provider's Telephone Number Policy Pelaez's Name Patient's Relationship to Policy Pelaez [employer] POINT OF SERVICE FOREI GN SERVI CE BENE Apr 10, 2020 [id number] [id number] CORDERO,RE INALDO PATIENT [employer] POINT OF SERVICE FOREI GN SERVI CE BENE Apr 10, 2020 [id number] [phone] CORDERO,RE INALDO PATIENT [employer] FEP ([id number]) PRESCRIPT ION FEPRX Apr 17, 2015 [id number] CORDERO,RE INALDO PATIENT [employer] ([employer]) PRESCRIPT ION FOREI GN SERVI CE BENE Apr 10, 2020 [id number] [phone] CELINE CORDEROO PATIENT [employer] ([employer]) PRESCRIPT ION RX PLAN Apr 10, 2020 FSBPACT MARLYS [id number] [phone] CELINE CORDERO PATIENT [employer] ([employer]) PRESCRIPT ION FSBPA CTIVE Apr 10, 2020 [id number] [phone] CELINE CORDERO PATIENT MEDICARE (WNR) MEDICARE (M) PART B Feb 06, 2022 PART B [id number] [phone] CELINE CORDEROLDO PATIENT MEDICARE (WNR) MEDICARE (M) PART A Feb 06, 2019 PART A [id number] [phone] CELINE CORDEROO PATIENT Selected Encounter This section includes the information on record at [place] for the Encounter. Date/Time Encounter Type Encounter Description Reason Provider Source Jul 21, 2024 01:30 PM OFFICE O/P EST MOD 30 MIN OPTOMETRY ICD-10-CM E11.9 Type 2 diabetes mellitus without complications YOGI SHAH E Encounter Template Text not used by [place] Assessments - Encounter Diagnoses This section includes the primary and secondary diagnoses documented for the Encounter. Date/Time Primary/Secondary Diagnosis Diagnosis Name Provider Source Jul 21, 2024 02:58 PM PRIMARY Type 2 diabetes mellitus without complications [facility] Jul 21, 2024 02:58 PM SECONDARY Headache, unspecified [facility] Jul 21, 2024 02:58 PM SECONDARY Open angle with borderline findings, low risk, bilateral [facility] Jul 21, 2024 02:58 PM SECONDARY Other rosacea [facility] Jul 21, 2024 02:58 PM SECONDARY Presbyopia [facility] Plan of Treatment: Future Appointments (+ 6 months) and Future Tests (+/- 45 days) The Plan of Treatment section includes future care activities for the patient from all [place] treatmentfacilities. This section includes future appointments and future orders which are active, pending or scheduled. Future Appointments This section includes appointments that were scheduled to occur 6 months from the date of the Encounter, up to a maximum of 20 appointments. The data comes from all [place] treatment facilities. Appointment Date/Time Appointment Type Appointme nt Facility Name Aug 03, 2024 01:15 PM AMBULATORY - MEDICINE [facility] Aug 03, 2024 02:30 PM AMBULATORY - SURGERY [facility] Social History: Smoking Status (Most current) and Tobacco Use (All prior to encounter date) This section includes the most current, and the historical, smoking and tobacco- related health factors from the [place] facility where the Encounter took place. Current Smoking Status This section includes the most current smoking, or tobacco-related health factor, from the [place] facility where the Encounter took place. Date/Time Current Smoking Status Comment Facil ity Nov 13, 2022 01:15 PM VA-TOBACCO FORMER USER [facility] Tobacco Use History This section includes a history of the smoking, or tobacco-related health factors, that were collected on or before the date of the Encounter. The data comes from the [place] facility where the Encounter took place. Date/Time Smoking Status/Tobacco Use Comment F acility Nov 13, 2022 01:15 PM VA-TOBACCO QUIT 15 YRS OR MORE [facility] September 05, 2021 03:15 PM VA-TOBACCO FORMER USER [facility] September 05, 2021 03:15 PM VA-TOBACCO QUIT 15 YRS OR MORE [facility] Sep 17, 2017 03:16 PM QUIT TOBACCO >7 YEARS AGO [facility] Jul 23, 2016 01:30 PM QUIT TOBACCO >7 YEARS AGO [facility] Jun 20, 2015 02:17 PM QUIT TOBACCO >7 YEARS AGO [facility] May 31, 2014 01:22 PM QUIT TOBACCO >7 YEARS AGO [facility] Mar 16, 2013 01:09 PM LIFETIME NON-USER OF TOBACCO [facility] Dec 31, 2005 09:37 AM CURRENT NON-TOBACC O USER-HX OF USE [facility] Dec 31, 2005 09:37 AM TOBACCO TERMINATION STAGE [facility] Jul 02, 2005 11:53 AM CURRENT NON-TOBACC O USER-HX OF USE [facility] Jul 02, 2005 11:53 AM TOBACCO TERMINATION STAGE [facility] Encounter Notes: All associated encounter notes This section contains the clinical notes associated to the Encounter. Date/Time Encounter Note(s) Provider Source Jul 21, 2024 02:33 PM OPTOMETRY NOTE: LOCAL TITLE: EYEGLASS PRESCRIPTION NOTE STL STANDARD TITLE: OPTOMETRY NOTE DATE OF NOTE: JUL 21, 2024@14:33 ENTRY DATE: JUL 21, 2024@14:33:35 AUTHOR: FARA SHAH EXP COSIGNER: URGENCY: STATUS: COMPLETED DATE OF LAST EYE EXAM:JUL 21, 2024 OD: +2.00 -[id number] OS: +1.75 -0.40w758 Add: +2.50 LENS MATERIAL: Polycarbonate LENS TYPE: Bifocal Other Add Ons: Photochromic lenses included due to medical condition Additional Comments: /sree/ FARA SHAH OD YOUTH MANAGER Signed: 07/21/2024 14:39 FARA SHAH [facility] Jul 21, 2024 01:28 PM OPTOMETRY NOTE: LOCAL TITLE: OPTOMETRY NOTE STANDARD TITLE: OPTOMETRY NOTE DATE OF NOTE: JUL 21, 2024@13:28 ENTRY DATE: JUL 21, 2024@13:28:52 AUTHOR: FARA SHAH EXP COSIGNER: URGENCY: STATUS: COMPLETED Last seen: January 2023 CC: comprehensive 1. Vision is blurry vision glasses help minimally, mostly with reading reports fatigue 2. H/o BURNS 6 months told PCP; did not find anything concerning, recommending to have vision checked frontal and sinus in location notices after 2-3 hours of watching TV 3. DM monitoring last blood sugar 97 last A1C 5.4% treated with oral meds 4. Low risk POAG suspect no history of treatment Ocular meds: Artificial Tears Gel PRN Ocular ROS: 1. Low Risk Glaucoma suspect vs physiological cupping 2. CINDY/MGD OU 3. Diabetes without h/o retinopathy 4. Cataracts OU 5. Refractive error/Presbyopia (-) ocular injuries (-) ocular surgeries/injections/lase r treatments Family OcHX: (-) blindness (-) glaucoma (-) AMD (-) RD Cardiovascular ROS: no change from problem & medication lists CPRS Problem list, medications and allergies reviewed: CPRS Serology for Diabetes GLUCOSE 99 mg/dL 02/04/2024 14:46 HGA1C 5.4 % 02/04/2024 14:46 Cardiovascular BP: 120/76 (06/04/2024 13:11) Pulse: 92 (06/04/2024 13:11) Neuro: Orientation: Normal Psych: Mood/Affect: Normal Depression/suicide ideation: NO VISUAL ACUITY With correction Distance Visual Acuity Computer Support Specialist Instructor OD: 20/30+2 PH: 20/20-1 OS: 20/20-2 Pupils PERRL OU (-)APD Computer Support Specialist Instructor Confrontation: FTFC OU Extra-Ocular Muscles Full OU (-) pain, diplopia Externals/adnexa Unremarkable OU MRx: OD SPHERE: +1.75 CYL: -1.50 AXIS: 95 20/20-- OS SPHERE: +1.25 CLY: -0.50 AXIS: 85 20/25+ ADD: +2.50 Refraction 07/21/2024 OD: +2.00 -1.28k604 20/20-1 OS: +1.75 -0.07x194 20/20-2 Add: +2.50 SLIT LAMP EXAMINATION Lids/Lashes/Lacrimal trace blepharitis, papillomas R/HENRIETTA, superior hemangioma HENRIETTA, 1+ mgd OU Conjunctiva Clear OU Sclera White/quiet OU Cornea OD: mild nasal pterygium 1.7mm onto cornea OS: clear Ant Chamber Deep and quiet OU Iris Normal, (-)NVI OU Lens 1-2+ NS cataract OU, trace vacuoles Intraocular Pressures (Goldmann) 1 gtt fluress Date OD OS Time Meds 03/05/18 23 20 1056 none 09/02/18 25 25 1103 none 03/04/19 20 22 150 none Computer Support Specialist Instructor 08/16/20 20 20 1254 none 04/18/21 18 18 0903 none 01/23/22 18 20 1011 none 01/22/23 23 22 1123 none 07/21/2024 17 17 1348 none Instilled 1 gtt phenylephrine 2.5%, 1 gtt tropicamide 1% OU @1349 Patient understands the side effects associated with dilation RETINAL EVALUATION - DFE Dilated retinal exam Optic Nerve OD: 0.75 CDR Flat, pink, distinct (-)NVD *difficult to dairy cattle farmer due to shallow cupping OS: 0.7 CDR Flat, pink, distinct (-)NVD OU: large nerves, shallow cups with temporal sloping, temp choroidal crescents Vessels: 2/3 OU, (-)NVE OU Posterior Pole: OD: (-) Hemorrhages (-) exudates (-) cotton wool spots OS: (-) Hemorrhages (-) exudates (-) cotton wool spots Macula: OD: Flat, clear (-)CSME OS: Flat, clear (-)CSME Periphery: OD: Flat and attached, (-)tears/holes/breaks OS: Flat and attached, (-)tears/holes/breaks Vitreous: (+)PVD OS Lorene Eubanks, Optometry Computer Support Specialist Instructor participated in the care of this under my supervision. I personally examined the patient and provided the following assessment and plan: Assessment/Plan 07/21/2024 1. Diabetes without retinopathy, OU - No CSME/DME on clinical evaluation - Last A1c: 5.4% - Advised patient to keep HgA1c below 7% to reduce the risk of vision loss associated with diabetes. - Monitor with yearly DFE 2. Low risk glaucoma suspect vs physiological cupping OU - CDR: 0.75 OD, 0.70 OS - stable x years - IOPs today / w/o tx Tmax: - (+) DORY - CCT: 532/523 - HVF (02/2019): reliable, no glaucomatous defects OD and OS - OCT RNFL (2022): WNL - No treatment indicated at this time given normotensive IOP, stable ONH - RTC 6 months for IOP, HVF 24-2 3. Ocular rosacea OU - pt being treated by derm for rosacea - Continue PFATs/gel up to QID/PRN OU - refills remaining - RTC if symptoms persist/worsen 4. H/o headaches - new onset 6 months ago, worse after multiple hours of screen use - frontal and sinuses in location - no ocular pathology contributing to HAs - Discussed with pr, cont care with PCP as scheduled - RTC sooner if symptoms persist/worsen 5. Refractive Error/Presbyopia - increase in BCVA with refraction - Updated MRx given for FTW. order placed for new glasses Pt edu on all findings and given the opportunity to have questions answered RTC 6 months for HVF and IOP check. /sree/ FARA SHAH, OD YOUTH MANAGER Signed: 07/24/2024 17:42 FARA SHAH [facility]
--- OUTSIDE RECORDS SUMMARY | 2024-07-30 13:33 | XMS_ITS ---
Author Name [facility] [facility] [place] [facility] [place] [facility] [place] Address [address] [place] [address] Support Name Relationship Address Phone ERLIN CORDERO Next of Kin [address] [place] [address] ERLIN CORDERO Emergency Contact [address] [place] [address] [address] Next of [address] [place] [address] Care Team Providers Care Transformation Specialist Name Role Phone SHOAIB SHARP Primary Care [...] GN SERVI CE BENE Apr 10, 2020 [id number] [phone] CORDERO,RE INALDO PATIENT [facility] POINT OF SERVICE FOREI GN SERVI CE BENE Apr 10, 2020 [id number] [phone] CORDERO,RE INALDO PATIENT [facility] F[facility] ([id number]) PRESCRIPT ION FEPRX Apr 17, 2015 [id number] CORDERO,RE INALDO PATIENT [facility] ([facility]) PRESCRIPT ION FOREI GN SERVI CE BENE Apr 10, 2020 [id number] [phone] CELINE CORDEROLDO PATIENT [facility] ([facility]) PRESCRIPT ION RX PLAN Apr 10, 2020 FSBPACT MARLYS [id number] [phone] CELINE CORDERO PATIENT [facility] ([facility]) PRESCRIPT ION FSBPA CTIVE Apr 10, 2020 [id number] [phone] CELINE CORDEROLD PATIENT MEDICARE (WNR) MEDICARE (M) PART B Feb 06, 2022 PART B [id number] CELINE CORDEROLDO PATIENT MEDICARE (WNR) MEDICARE (M) PART A Feb 06, 2019 PART A [id number] [phone] CELINE CORDEROO PATIENT Selected Encounter This section includes the information on record at [place] for the Encounter. Date/Time Encounter Type Encounter Description Reason Provider Source September 03, 2023 02:00 PM OFFICE O/P EST MOD 30 MIN ORTHO/JOINT SURG ICD-10-CM M17.0 Bilateral primary osteoarthritis of knee AYALAJUANIS [facility] Encounter Template Text not used by [place] Assessments - Encounter Diagnoses This section includes the primary and secondary diagnoses documented for the Encounter. Date/Time Primary/Secondary Diagnosis Diagnosis Name Provider Source September 03, 2023 04:01 PM PRIMARY Bilateral primary osteoarthritis of knee CAROL AYALA [facility] September 03, 2023 04:01 PM SECONDARY Calcific tendinitis of right shoulder CAROL AYALA [facility] Plan of Treatment: Future Appointments (+ 6 months) and Future Tests (+/- 45 days) The Plan of Treatment section includes future care activities for the patient from all [place] treatmentfacilities. This section includes future appointments and future orders which are active, pending or scheduled. Future Appointments This section includes appointments that were scheduled to occur 6 months from the date of the Encounter, up to a maximum of 20 appointments. The data comes from all [place] treatment facilities. Appointment Date/Time Appointment Type Appointme nt Facility Name Dec 30, 2023 01:00 PM AMBULATORY - SURGERY [facility] Jan 23, 2024 01:15 PM AMBULATORY - MEDICINE [facility] Feb 04, 2024 01:15 PM AMBULATORY - MEDICINE [facility] Feb 19, 2024 01:30 PM AMBULATORY - MEDICINE [facility] Active, Pending, and Scheduled Orders This section includes a listing of several types of active, pending, and scheduled orders, including clinic medications orders, diagnostic test orders, procedure orders and consult orders; where the start date of the order is 45 days before the date of the Encounter or 45 days after the date of theEncounter. The data comes from all [facility] facilities. Test Date/Time Test Type Test Details Facility Name Jul 25, 2023 12:00 AM Laboratory - Chemi stry Order HGB,HCT,PLT BLOOD [facility] Jul 25, 2023 12:00 AM Laboratory - Chemi stry Order TESTOSTERONE, FREE PANEL RED/NO-GEL SERUM [facility] Jul 25, 2023 12:00 AM Laboratory - Chemi stry Order PROST. SPECIFIC AG.(PB-STL) GOLD/RED SST SERUM [facility] Vital Signs: All taken on the encounter date This section contains inpatient and outpatient Vital Signs collected on the date of the Encounter. Date/Time Temperature Pulse Blood Pressure Respiratory Rate SP02 Pain Height Weight Body Mass Index Source September 03, 2023 01:33 PM 97.6 74 142/95 [address] [facility] Social History: Smoking Status (Most current) and Tobacco Use (All prior to encounter date) This section includes the most current, and the historical, smoking and tobacco- related health factors from the [place] facility where the Encounter took place. Current Smoking Status This section includes the most current smoking, or tobacco-related health factor, from the [place] facility where the Encounter took place. Date/Time Current Smoking Status Comment Facil ity Nov 13, 2022 01:15 PM [place]-TOBACCO FORMER USER [facility] Tobacco Use History This section includes a history of the smoking, or tobacco-related health factors, that were collected on or before the date of the Encounter. The data comes from the [place] facility where the Encounter took place. Date/Time Smoking Status/Tobacco Use Comment F acility Nov 13, 2022 01:15 PM [place]-TO[place]AC[place] QUIT 15 YRS OR MORE [facility] September 05, 2021 03:15 PM VA-TOBACCO FORMER USER [facility] September 05, 2021 03:15 PM VA-TOBACCO QUIT 15 YRS OR MORE [facility] Sep 17, 2017 03:16 PM QUIT TOBACCO >7 YEARS AGO [facility] Jul 23, 2016 01:30 PM QUIT TOBACCO >7 YEARS AGO [facility] Jun 20, 2015 02:17 PM QUIT TOBACCO >7 YEARS AGO [facility] May 31, 2014 01:22 PM QUIT TOBACCO >7 YEARS AGO [facility] Mar 16, 2013 01:09 PM LIFETIME NON-USER OF TOBACCO [facility] Dec 31, 2005 09:37 AM CURRENT NON-TOBACC O USER-HX OF USE [facility] Dec 31, 2005 09:37 AM TOBACCO TERMINATION STAGE [facility] Jul 02, 2005 11:53 AM CURRENT NON-TOBACC O USER-HX OF USE [facility] Jul 02, 2005 11:53 AM TOBACCO TERMINATION STAGE [facility] Encounter Notes: All associated encounter notes This section contains the clinical notes associated to the Encounter. Date/Time Encounter Note(s) Provider Source September 03, 2023 02:13 PM ORTHOPEDIC SURGERY NOTE: LOCAL TITLE: ORTHOPEDIC [facility] STANDARD TITLE: ORTHOPEDIC SURGERY NOTE DATE OF NOTE: SEPTEMBER 03, 2023@14:13 ENTRY DATE: SEPTEMBER 03, 2023@14:19:05 AUTHOR: VERONIQUE AYALA EXP COSIGNER: URGENCY: STATUS: COMPLETED INTERIM HISTORY: The pateint is a 68 year old man who returns for management of bilateral (L>R) knee pain and right shoulder pain. On 04/29/23 he received a cortisone injection in the left knee and right shoulder. Both injections helped and until about a month ago. He did attend PT last year and multiple joint pains were addressed although he did not notice dramatic improvement. He takes 7.5mg Meloxicam daily. Vital Signs: Temperature: 97.6 F [36.4 C] (09/03/2023 13:33) Blood Pressure: 142/95 (09/03/2023 13:33) Pulse: 74 (09/03/2023 13:33) Respirations: 16 (09/03/2023 13:33) BMI: 28.1 Labs: WBC 7.6 10*3/uL 10/29/2022 11:29 RBC 4.90 10*6/uL 10/29/2022 11:29 HGB 15.8 g/dL 10/29/2022 11:29 HCT 47.0 % 10/29/2022 11:29 MCV 95.9 fL 10/29/2022 11:29 MCH 32.2 pg 10/29/2022 11:29 MCHC 33.6 g/dL 10/29/2022 11:29 RDW 13.4 % 10/29/2022 11:29 PLT 225 10*3/uL 10/29/2022 11:29 MPV 9.2 fL 10/29/2022 11:29 NEUTROPHILS, AUTO % 70 % 10/29/2022 11:29 LYMPHOCYTES, AUTO % 21 % 10/29/2022 11:29 MONOCYTES, AUTO % 6 % 10/29/2022 11:29 EOSINOPHILS, AUTO % 3 % 10/29/2022 11:29 BASOPHILS, AUTO % 0 % 10/29/2022 11:29 NEUTROPHILS, ABSOLUTE 5.31 10*3/uL 10/29/2022 11:29 LYMPHOCYTES, ABSOLUTE 1.56 10*3/uL 10/29/2022 11:29 MONOCYTES, ABSOLUTE 0.48 10*3/uL 10/29/2022 11:29 EOSINOPHILS, ABSOLUTE 0.19 10*3/uL 10/29/2022 11:29 BASOPHILS, ABSOLUTE 0.02 10*3/uL 10/29/2022 11:29 Comprehensive Metabolic Panel Results: SODIUM 143 mEq/L 07/16/2022 14:49 POTASSIUM 3.9 mEq/L 07/16/2022 14:49 CHLORIDE 105 mEq/L 07/16/2022 14:49 UREA NITROGEN 21 mg/dL 07/16/2022 14:49 CREATININE 0.80 mg/dL 07/16/2022 14:49 CALCIUM 9.8 mg/dL 07/16/2022 14:49 PROTEIN 7.5 g/dL 07/16/2022 14:49 ALBUMIN 4.5 g/dL 07/16/2022 14:49 ALKALINE PHOSPHATASE 47 U/L 07/16/2022 14:49 ALT/SGPT 27 U/L 07/16/2022 14:49 AST/SGOT 23 U/L 07/16/2022 14:49 TOTAL BILIRUBIN 0.6 mg/dL 07/16/2022 14:49 CARBON DIOXIDE 28 mEq/L 07/16/2022 14:49 GLUCOSE 88 mg/dL 07/16/2022 14:49 EGFR (CKD-EPI 2020) 96.4 07/16/2022 14:49 HBA1c: HGA1C 5.3 % 10/29/2022 11:29 C-React Protein:0 No SED RAT (STL-PB) data found CONSTITUTIONAL: A&O X 3, well-developed, well-nourished and in no acute distress. mood is pleasant and appropriate ambulation: antalgic respirations: even and unlabored hearing: intact skin intact MUSCULOSKELETAL EXAMINATION: Shoulder: Examination of the right shoulder shows no ertyhema, lesions or masses. No swelling. Full AROM with mild pain. 4+/5 rotator cuff strength. +impingement signs. Biceps provocation signs are negative. The acromioclavicular joint is nontender. Knee: Left knee ROM 5-100 No laxity to varus or valgus stress NVI Mild suprapatellar effusion. RADIOGRAPH: Radiographs were personally reviewed with the patient in the office today. No data available ASSESSMENT: The patient is a 68 year old with mild to moderate bilateral osteoarthritis of knees and calcific tendonitis of the right shoulder. We discussed management of shoulder, NSAIDs and PT and he agreed if a subacromial injection could be done. He also requested left cortisone knee injection. He will return in 4 months for re-eval . PLAN: 1. CSI to left knee today 2. CSI to right shoulder 3. home exercise program for right shoulder Total time spent including face to face and non face to face: 35 minutes Subacromial injection Please see procedure note below: A cortisone injection was requested today. Risks, benefits, and alternatives were discussed. Patient wishes to proceed. Consent in iMed and time out completed. PROCEDURE: Right shoulder subacromial injection Allergies were reviewed with the patient prior to preparation. The distal posterolateral edge of the acromion was palpated and marked. The area was cleaned in a sterile fashion prior to the procedure with ChloraPrep One-Step. The needle was inserted inferior to the posterolateral edge of the acromion and directed medially and slightly anteriorly. The injectate flowed freely without any significant resistance. The site was dressed with a sterile adhesive bandage and the patient was encouraged to ice the area immediately following the injection and to avoid strenuous activity with the involved shoulder for remainder of the day. Kenalog 2 ml (40mg/1ml) 3 ml 1% lidocaine - right shoulder KNEE INJECTION Please see procedure note below: A cortisone injection was requested today. Risks, benefits, and alternatives were discussed. Patient wishes to proceed. Consent in iMed and time out completed. PROCEDURE: Left knee corticosteroid injection Allergies were reviewed with the patient prior to preparation. The patient was positioned sitting on the edge of the examination table with the knee flexed 90 degrees. The joint space lateral to the patellar tendon was again palpated and marked. The area was cleaned in a sterile fashion prior to the procedure with ChloraPrep One-Step. The sterile 22g 1.5 needle was inserted lateral to the patellar tendon, approximately 1 cm above the tibia plateau, and was directed 15-45 degrees from anterior knee surface vertical midline toward the intraarticular joint space. The injectate flowed freely without any significant resistance. The site was dressed with a sterile adhesive bandage and the patient was encouraged to ice the area immediately following the injection and to avoid strenuous activity with the involved knee for remainder of the day. Signs, symptoms and reasons to call for infection and/or localized reaction were explained, patient verbalized understanding Kenalog 2ml (40mg/1ml)3 ml 1% lidocaine - left knee /es/ VERONIQUE AYALA PA-C Physician Machine Compositor, Orthopedic Signed: 09/03/2023 16:01 VERONIQUE AYALA [facility]
--- OUTSIDE RECORDS SUMMARY | 2024-07-30 13:34 | XMS_ITS | Encounter Summary ---
Author Organization [facility] Healthcare Address [address] [place] [address] Care Team Providers Care Plant Utilities Engineer Name Role Phone Po Howell MD Primary Care Provider [phone] Encounter Details Date Type Department Care Team (Late st Contact Info) Description 06/02/2018 10:40 AM ENTERTAINMENT MUSICIAN Hospital Encounter [facility] [address] [place] [address] Social History Tobacco Use Types Packs/Day Years Used Date Smoking Tobacco: Former Cigarettes 0.5 3 1 972 - 1975 Smokeless Tobacco: Never Alcohol Use Standard Drinks/Week Comments Yes 0 [...] often do you attend chur ch or baptism services? 1 to 4 times per year 09/25/2021 Do you belong to any clubs o r organizations such as oriental orthodox groups, unions, fraternal or athletic groups, or [...] on file Legal Sex Male 3:58 AM ENTERTAINMENT MUSICIAN Gender Identity Male 10/31/2018 2:56 PM CDT Sexual Orientation Straight 10/31/2018 2: 56 PM CDT documented as of this encounter Functional Status * Audit-C Score Answer Date of Assessment Author 1 09/21/2021 7:43 PM CDT Keeley Donaldson RN * Question Answer Date of Assessment Author Q1: How often do you have a drink containing alcohol? Monthly or less 09/21/2021 7:43 PM GLORIAT Flower Donaldson RN Q2: How many drinks containing alcohol do you have on a typical day when you are drinking? 1 or 2 09/21/2021 7:43 PM GLORIAT Flower Donaldson RN Q3: How often do you have six or more drinks on one occasion? Never 09/21/2021 7:43 PM Flower Santiago RN documented as of this encounter Plan of Treatment Not on file documented as of this encounter Goals Goal Patient Goal Type Associated Problems Recent Progress Patient-Stated? Author CCM Chronic Pain Care Plan Chronic Care Management No Chris Degroot, ALEX Note: Problem: Chronic Pain Goals: 1. Minimize [...] stairs Contact your local community or senior [place] for information on exercise, fall prevention programs, or options for improving home safety. documented as of this encounter Visit Diagnoses Not on filedocumented in this encounter Care Teams Plant Utilities Engineer Relationship Specialty Start Date End Date Po Howell MD [address] [facility] [address] [place], [place] [phone] PCP - General Internal Medicine 09/10/17 documented as of this encounter
--- OUTSIDE RECORDS SUMMARY | 2024-07-30 13:34 | XMS_ITS ---
EOSINOPHILS, AUTO % 1 BASOPHILS, AUTO % 0 LYMPHOCYTES, ABSOLUTE 0.83 10*3/uL 0.77- 4.50 MONOCYTES, ABSOLUTE 0.53 10*3/uL 0.19-0. 80 NEUTROPHILS, ABSOLUTE 6.35 10*3/uL 2.10- 8.00 EOSINOPHILS, ABSOLUTE 0.04 10*3/uL 0.00- 0.60 BASOPHILS, ABSOLUTE 0.02 10*3/uL 0.00-0. 20 Feb 04, 2024 02:46 PM [facility] RENAL PANEL PLASMA Specimen Type: PLASM A Comment: No hemolysis noted. Ordering Provider: ROSETTA NEELY III Report Released Date/Time: Feb 04, 2024 01:19 PM Reporting Lab: [address] [address] Performing Lab: [address] [address] CREATININE 0.79 mg/dL 0.7-1.3 UREA NITROGEN 17.5 mg/dL 9.0-25.0 GLUCOSE 99 mg/dL 72-99 SODIUM 141 meq/L 136-145 POTASSIUM 4.1 meq/L 3.5-5 CHLORIDE 104 meq/L 98-107 CARBON DIOXIDE 28 meq/L 22-31 CALCIUM 10.3 mg/dL 8.4-10.4 PHOSPHOROUS 3.7 mg/dL 2.3-4.7 ALBUMIN 4.6 g/dL 3.4-5 EGFR (CKD-EPI 2020) 96.2 >60 Feb 04, 2024 02:46 PM [facility] HEPATIC FUNTION PANEL (STL) PLASMA Specimen Ty pe: PLASMA No comment entered. Ordering Provider: MARGA SHARP Report Released Date/Time: Feb 05, 2024 03:29 PM Reporting Lab: [address] [address] Performing Lab: [address] [address] PROTEIN 7.6 g/dL 6-8.6 ALBUMIN 4.6 g/dL 3.4-5 TOTAL BILIRUBIN 0.7 mg/dL 0.2-1.2 ALKALINE PHOSPHATASE 51 U/L 40-150 AST/SGOT 24 U/L 5-34 ALT/SGPT 30 U/L 8-40 CONJ. BILIRUBIN 0.3 mg/dL 0-0.5 Feb 04, 2024 01:12 PM [facility] GLUCOSE,BLOOD-poct (STL) BLOOD Specimen Type: BLOOD Comment: Test Performed by: [id number] Meter #: [id number] Ordering Provider: ROSETTA NEELY III Report Released Date/Time: Feb 04, 2024 04:04 PM Reporting Lab: [facility] [address] [facility] [address] Performing Lab: [place] [id number] [facility] [address] GLUCOSE,BLOOD-poct (STL) 85 mg/dL 72-99 Vital Signs: All taken on the encounter date This section contains inpatient and outpatient Vital Signs collected on the date of the Encounter. Date/Time Temperature Pulse Blood Pressure Respiratory Rate SP02 Pain Height Weight Body Mass Index Source Feb 04, 2024 01:14 PM 4 [facility] Feb 04, 2024 01:05 PM 98.8 83 130/90 16 99 4 199.88 28 [facility] Social History: Smoking Status (Most current) and Tobacco Use (All prior to encounter date) This section includes the most current, and the historical, smoking and tobacco- related health factors from the [place] facility where the Encounter took place. Current Smoking Status This section includes the most current smoking, or tobacco-related health factor, from the [place] facility where the Encounter took place. Date/Time Current Smoking Status Comment Tri ity Nov 13, 2022 01:15 PM VA-TOBACCO FORMER USER [facility] Tobacco Use History This section includes a history of the smoking, or tobacco-related health factors, that were collected on or before the date of the Encounter. The data comes from the [place] facility where the Encounter took place. Date/Time Smoking Status/Tobacco Use Comment F acility Nov 13, 2022 01:15 PM VA-TOBACCO QUIT 15 YRS OR MORE [facility] September 05, 2021 03:15 PM VA-TOBACCO FORMER USER [facility] September 05, 2021 03:15 PM VA-TOBACCO QUIT 15 YRS OR MORE [facility] Sep 17, 2017 03:16 PM QUIT TOBACCO >7 YEARS AGO [facility] Jul 23, 2016 01:30 PM QUIT TOBACCO >7 YEARS AGO [facility] Jun 20, 2015 02:17 PM QUIT TOBACCO >7 YEARS AGO [facility] May 31, 2014 01:22 PM QUIT TOBACCO >7 YEARS AGO [facility] Mar 16, 2013 01:09 PM LIFETIME NON-USER OF TOBACCO [facility] Dec 31, 2005 09:37 AM CURRENT NON-TOBACC O USER-HX OF USE [facility] Dec 31, 2005 09:37 AM TOBACCO TERMINATION STAGE [facility] Jul 02, 2005 11:53 AM CURRENT NON-TOBACC O USER-HX OF USE [facility] Jul 02, 2005 11:53 AM TOBACCO TERMINATION STAGE [facility] Radiology Reports: +/- 30 days of the encounter Radiology Reports For cases when an order for radiology services may have been completed prior to the date of the Encounter, the report list includes the Radiology Reports that were completed up to 30 days before dateof the Encounter. For cases when an order for radiology services may have been completed after the date of the Encounter, the report list also includes the Radiology Reports that were completed up to30 days after date of the Encounter. The data comes from all [facility] facilities. Date/Time Radiology Report Provider Source Feb 19, 2024 01:04 PM [employer] (NON -OB): CARLOS CORDERO [id number] -[phone] Ex Date: FEB 19, 2024@13:04 Req Phys: ROSETTA NEELY III Pat Loc: [facility]JU-PACT HONOR RES 67 (Req'g Lo Img Loc: ANJU-ULTRASOUND [facility] Service: [address] [address] (Case 1960 COMPLETE) [employer] (NON-OB) (US Detailed) CPT:31813 Reason for Study: Mobile lump to right groin Clinical History: Pt has mobile right groin lump (1cm) which he would like evaluated in setting of history of prosate cancer and subsequent radiation therapy. Ultrasound to evaluate mass further Report Status: Verified Date Reported: FEB 19, 2024 Date Verified: FEB 19, 2024 Open Claims Representative E-Sig:/ES/KAPIL THAKKAR Report: STUDY: [employer] (NON-OB) ACCESSION NUMBER: [id number] DATE: 02/19/2024 2:19 PM COMPARISON: None. HISTORY: Pt has mobile right groin lump (1cm) which he would like evaluated in setting of history of prostate cancer and subsequent radiation therapy. Ultrasound to evaluate mass further TECHNIQUE: Superficial sonography of the right groin was performed with grayscale and color Doppler ultrasound. Impression: FINDINGS/IMPRESSION: There is a 1.5 x 0.8 x 1.3 cm, ill-defined, hypoechoic mass with posterior acoustic shadowing, which demonstrate some capsular blood flow within the inferomedial aspect. These findings are indeterminate in etiology. FNA is recommended to characterize specific etiology, especially in view of the history of prostate cancer. Dictated by Mariza Mcgee MD (Smokehouse Worker) IKapil, have reviewed the images and report and concur with these findings. Primary Interpreting Staff: KAPIL THAKKAR, RADIOLOGIST (Open Claims Representative) Primary Interpreting Resident: MARIZA MCGEE, Resident Physician /[facility] Encounter Notes: All associated encounter notes This section contains the clinical notes associated to the Encounter. Date/Time Encounter Note(s) Provider Source Mar 13, 2024 01:12 PM PHYSICIAN LETTERS: LOCAL TITLE: TEST RESULT GENERAL LETTER STL STANDARD TITLE: PHYSICIAN LETTERS DATE OF NOTE: MAR 13, 2024@13:12 ENTRY DATE: MAR 13, 2024@13:12:51 AUTHOR: MARGA SHARP EXP COSIGNER: URGENCY: STATUS: COMPLETED [facility] [address] [place] [address] MAR 13, 2024 CARLOS CORDERO [address] [place] [id number] Dear Carlos Cordero, I would like to update you on your recent test results. I tried to reach you by phone. Please call Clinic if you have any questions. This a reassuring result showing normal tissue debris in a cyst. No further workup needed at this time. RIGHT GROIN NODULE, ULTRASOUND-GUIDED FINE NEEDLE ASPIRATION: - CYST CONTENTS - NEGATIVE FOR MALIGNANT CELLS -------- FUTURE APPOINTMENTS: 04/28/2024 13:00 [facility]-ORTHO GLADYS AYALA 06/04/2024 13:00 [facility]-ENDOCRINOLOGY [facility] 08/03/2024 13:15 ANJU-PACT HONOR RES 67 01/22/2025 13:00 [facility]-OLV DERM CLINIC Dr. Marga Sharp Physician, Primary Care [address] [place] [address] Clinic Clinic Sincerely, MARGA SHARP MD STAFF PHYSICIAN CARLOS CORDERO [facility] Feb 11, 2024 09:57 AM PHYSICIAN LETTERS: LOCAL TITLE: TEST RESULT GENERAL LETTER STL STANDARD TITLE: PHYSICIAN LETTERS DATE OF NOTE: FEB 11, 2024@09:57 ENTRY DATE: FEB 11, 2024@09:57:29 AUTHOR: MARGA SHARP EXP COSIGNER: URGENCY: STATUS: COMPLETED [address] [address] FEB 11, 2024 CARLOS CORDERO [address] [place] [address] Dear Carlos Cordero, I would like to update you on your recent test results. Hep C - This is important information about your exposure to infectious disease. Infection with hepatitis C can lead to liver damage. Hepatitis C has effective treatment. HEP C Ab HCV Ab (STL) REACTIVE S/CO H* (02/04/24 14:46) Report Released Date/Time: Feb 08, 2024@14:15 Comment: HCV RNA Not Detected HCV RNA Not Detected You have no detectable virus and remain in full remission. FUTURE APPOINTMENTS: 02/19/2024 13:30 ANJU-ULTRASOUND (1) 03/02/2024 13:00 ANJU-OPTOMETRY 9 04/28/2024 13:00 ANJU-ORTHO PA JAMIE 06/04/2024 13:00 ANJU-ENDOCRINOLOGY RICO 08/03/2024 13:15 ANJU-PACT HONOR RES 67 01/22/2025 13:00 [facility]-OLV DERM [facility]INIC Dr. Marga Sharp Physician, Primary Care [address] [address] Clinic Clinic Sincerely, MARGA SHARP MD STAFF PHYSICIAN CARLOS CORDERO [facility] Feb 11, 2024 09:56 AM ADDENDUM: LOCAL TITLE: Addendum STANDARD TITLE: ADDENDUM DATE OF NOTE: FEB 11, 2024@09:56:44 ENTRY DATE: FEB 11, 2024@09:56:45 AUTHOR: MARGA SHARP EXP COSIGNER: URGENCY: STATUS: COMPLETED Ms. Luna, Can you please let the know that his hepC testing shows no virus.Remains negative, so we can say he remains in full remission. I will send a copy of his test results. Thank you /sree/ MARGA SHARP MD STAFF PHYSICIAN Signed: 02/11/2024 09:57 Receipt Acknowledged By: 02/11/2024 10:30 /sree/ TEDDY RAI Registered Nurse --- Original Document --- 02/04/24 PRIMARY CARE PROVIDER ESTABLISHED VISIT STL: CC: Routine f/u SUBJECTIVE Carlos Cordero is a 68yoM with a history of HTN, HLD, GERD, HepC s/p treatment, prostate cancer s/p resection, glaucoma, rosacea, DJD, lumbar fusion, ulnar neuropathy and DORY who presents for routine follow up appointment. Last appointment on: 11/13/[address] Santiago for Primary care New complaints: - R GROIND MASS: concerned about what it is in setting of radiation therapy earlier this year for recurrence of prostate cancer - Hx PROSTATE CANCER: follows with [facility] for care, has PSA every 6 months. Had radiation therapy earlier 2023 for it - BILATERAL KNEE PAIN: sees ortho at [facility]. Given meloxicam and asking if needs refill. Says adrianne has helped but has not tried tylenol regularly. Recently had BURNS injection and cortisone to shoulder - ROSASEA: follows Derm at [facility]: remainder of health care maintenance and screening at non [facility] provider - pt was accompanied by his today who helped clarify treatment dates and history ROS: Negative unless noted in HPI Medical history: 1) Ulnar Neuropathy (ICD-9-CM 355.9) 2) Hepatitis C, Chronic 3) Gastro-esophageal reflux disease (SNOMED CT 607766707) 4) Benign prostatic hyperplasia 5) Pancreatic Cyst/Pseudocyst 6) Sleep Apnea W/Hypersomnulence 7) Hypertension * (ICD-9-CM 401.9) 8) Obesity (SNOMED CT 989745804) 9) Erectile dysfunction (SNOMED CT 228717846) 10) Dyslipidemia (ICD-9-CM 272.4) 11) Spinal stenosis of lumbar region (SNOMED CT 34327109) 12) Hyperlipidemia 13) Prostate cancer 14) Closed fracture radial styloid 15) Closed fracture of styloid process of ulna 16) Arthritis of both knees 17) Hypogonadism 18) Exposure to potentially hazardous substance (SCT [id number]) 19) Calcific tendinitis of right shoulder Medications: Active and Recently Outpatient Medications (including Supplies): Active Outpatient Medications Status ========= 1) CARBOXYMETHYLCELLULOSE NA 1% OPH GEL INSTILL 2 DROPS ACTIVE INTO BOTH EYES FOUR TIMES A DAY NEEDED FOR DRY EYES 2) DEPEND UNDERWEAR,MAXIMUM,MEN LARGE USE 1 DIAPER TO ACTIVE AFFECTED AREA(S) 5 TIMES A DAY NEEDED FOR INCONTINENCE Inactive Outpatient Medications Status ========= 1) ARTIFICIAL TEARS POLYVINYL ALCOHOL INSTILL 1 DROP IN BOTH EYES FOUR TIMES A DAY NEEDED FOR DRY EYE(S) 2) ARTIFICIAL TEARS PVA 1.4%/POVIDONE (PF) INSTILL 1 DROP IN BOTH EYES TWICE A DAY FOR DRY EYE(S) 3) KETOCONAZOLE 2% SHAMPOO USE SHAMPOO TO AFFECTED AREA(S) ONCE A DAY FOR DANDRUFF (EXTERNAL USE ONLY) (SHAKE WELL) 4) LIFITEGRAST 5% OPH SOLN 0.2ML INSTILL 1 DROP IN BOTH EYES EVERY 12 HOURS FOR DRY EYE(S) 5) METRONIDAZOLE 0.75% TOP CREAM APPLY SPARINGLY TO AFFECTED AREA(S) THREE TIMES A DAY FOR ROSACEA (TOPICAL USE ONLY) 6) TRETINOIN 0.05% CREAM APPLY LIGHTLY TO AFFECTED AREA(S) AT BEDTIME FOR ACNE. Active Non-VA Medications Status ========= 1) Non-VA APIXABAN 5MG TAB 5MG BY MOUTH TWICE A DAY ACTIVE 2) Non-VA ASPIRIN 81MG EC TAB 81 MG BY MOUTH ONCE A DAY ACTIVE 3) Non-VA CLONAZEPAM 0.5MG TAB 0.5MG BY MOUTH THREE ACTIVE TIMES A DAY NEEDED 4) Non-VA CYCLOBENZAPRINE HCL 10MG TAB 10MG BY MOUTH ACTIVE THREE TIMES A DAY NEEDED 5) Non-VA DICLOFENAC NA 50MG EC TAB 50MG BY MOUTH EVERY ACTIVE MORNING AND EVENING 6) Non-VA DILTIAZEM (EQV-TIAZAC) 300MG 24HR CAP 300MG BY ACTIVE MOUTH EVERY MORNING BEFORE A MEAL 7) Non-VA ESZOPICLONE 2MG TAB 2MG BY MOUTH AT BEDTIME ACTIVE 8) Non-VA FISH OIL 1000MG (500MG DHA/EPA) CAP 2000MG BY ACTIVE MOUTH TWICE A DAY 9) Non-VA HYDROCHLOROTHIAZIDE TAB BY MOUTH ACTIVE 10) Non-VA LOSARTAN 100MG TAB 100MG BY MOUTH ONCE A DAY ACTIVE 11) Non-VA METFORMIN HCL 1000MG TAB 500MG BY MOUTH TWICE ACTIVE A DAY WITH MEALS 12) Non-VA OXYCODONE 10MG/ACETAMINOPHEN 325MG TAB 1 ACTIVE TABLET BY MOUTH EVERY 6 HOURS NEEDED 13) Non-VA PANTOPRAZOLE NA 40MG EC TAB 40MG BY MOUTH ACTIVE EVERY MORNING BEFORE A MEAL 14) Non-VA PRAVASTATIN NA 40MG TAB 40MG BY MOUTH EVERY ACTIVE EVENING 15) Non-VA SEMAGLUTIDE 0.25MG/0.375ML INJ PEN 3ML 0.25MG ACTIVE (0.1875ML) UNDER THE SKIN EVERY WEEK 16) Non-VA TADALAFIL 5MG TAB 5MG BY MOUTH AT BEDTIME ACTIVE 17) Non-VA TESTOSTERONE (ANDROGEL) 1% 5GM/PKT GEL 1 ACTIVE SPARINGLY TO AFFECTED AREA(S) EVERY MORNING 18) Non-VA TIZANIDINE HCL 4MG TAB 4MG BY MOUTH THREE ACTIVE TIMES A DAY 19) Non-VA TRAMADOL HCL 50MG TAB 2 TABLETS BY MOUTH FOUR ACTIVE TIMES A DAY NEEDED 27 Total Medications Allergies: LISINOPRIL Surgical History: - prior prostatectomy - L2-5 fusion with revision Social History: - non smoker - rare EtOH, one drink every two weeks - no illicit drugs Family History: Physical Exam: Today's Vitals: BP: 130/90 P: 83 R: 16 WT: 199.88 T: 98.8 HT: General: No acute distress HEENT: Normocephalic, atraumatic, moist oral mucosa Neck: No JVD is appreciated CV: Regular rate and rhythm, no murmurs/rubs/gallops Lung: Clear to ausculation bilaterally, no crackles, no wheezes Abdomen: soft, nontender, nondistended, bowel sounds present Ext: No deformity, no edema. pt has small 1cm mobile, nontender subcutaneous mass to right inguinal area. Not a hernia. Also has a small 1cm nodule in left groin area too. Neuro: No focal deficits Psych: Appropriate mood and affect Lab Values: Reviewed ASSESSMENT AND PLAN: CARLOS CORDERO is a 68 year old WHITE MALE with history significant for #Lumbar spodylosis s/p L2-5 fusion 06/2021 s/p revision - Complicated by R foot drop and fecal/urinary incontinence - S/p PT with little improvement in symptoms. --Neurosurgery follwing #Bilateral knee osteoarthritis L>R - S/p steroid injections and BURNS injections -- continue to follow with ortho at [facility] > s/p viscosupplement injections and R shoulder injection -- given Rx for tylenol and aleve instead of meloxicam for pain -- pt also has cyclobenzaprine he occasionally uses for back pain #Prostate Ca s/p resection #hypogonadism - Following with Endocrinology and [facility] - Continue Tadalafil 5mg #R groin mass - US of pelvis and R Groin ordered today #Afib, well controlled - Follows with outside Credit [employer] Dr. Vance - Eliquis 5mg BID #hypogonadism - follows with endocrinology > pt states testosterone recently stopped due to recurrenct of prostate cancer > dexa scan with normal bone mass 01/2022 #hypertension -Diltiazem 300mg daily -HCTZ 12.5mg daily -Losartan 100mg daily #HLD -Pravastatin 40mg -Fish oil 4000mg #GERD -pantoprazole 40mg (PRN) #Rosacea #seborrheaic dermatitis, well controlled #sebaceous hyperplasia - ketokonazole 2% shampoo -Tretinoin #DM- well controlled - Last A1c 5.3% (10/2022) - Ozempic Qweekly - Metformin 1000mg BID #Insomnia -clonazepam 1mg ODT -Pramipexole 0.25mg -Eszopiclone 3mg tab #DORY- unable to tolerate CPAP Health Care Maintenance - CRC screenin02/2019, zero polyps, repeat 2028 - Lung cancer screening: non smoker - AAA screening: none smoker - Prostate cancer screening: - HgbA1c: 5.3 on 10/29/2022 - ID screening: [] HIV - negative 07/16/22 [] HCV Ab - negative 03/05/2008 - Vaccinations: follows with outside PCP [] Pneumococcal - [] TDAP - [] Influenza - [] Zoster - [] COVID-19 - Labs ordered: Hep C, CBC, renal panel, Lipid panel, HgbA1c Rx ordered: tylenol and aleve Imaging: US of R groin area Consults: none Follow up: 6 months - review US of groin - review knee pain/shoulder pain, pt follows ortho - rest of HCM at outside PCP - given letter to have outside labs forwarded to or Myself Patient seen and discussed with the attending physician, Dr. Sharp. Roestta Neely III, MD Internal Medicine, PGY-3 /es/ Rosetta Neely III, MD Resident Physician Signed: 02/04/2024 16:36 /es/ MARGA SHARP MD STAFF PHYSICIAN Cosigned: 02/05/2024 15:23 02/05/2024 ADDENDUM STATUS: COMPLETED The patient was discussed with the resident and I have independently reviewed the chart and relevant labs and imaging. I agree with the assessment and plan as documented in the resident's note with the following additions: 68y/o male with PMH of HTN, HLD, GERD, HepC s/p treatment, prostate cancer s/p resection, glaucoma, rosacea, DJD, Lumbar fusion surgery, ulnar neuropathy and DORY, hypogonadism on androgel -b/l groin cyst vs lipoma: u/s pending -labs today ==PREVENTATIVE CARE== - PSA (q2y men 55-69): 0.133 ng/mL 10/29/2022 11:29 - Colorectal cancer screening (45-75y): 02/2019 - CRC screen FIT: Occult Blood - Osteoporosis (65y DEXA): 01/2022 no further follow up req - HGA1C 5.4 % 02/04/2024 14:46 - CALCULATED LDL 56 mg/dL 02/04/2024 14:46 - HIV (once 15-65y): NONREACTIVE 07/2022 - Hep C (once 18-79y): REACTIVE S/CO H* s/p treatment with SVR ==TOBACCO USE== -lifetime nonsmoker Immunization Series Date Facility Reaction Info COVID-19 (PFIZER), MRNA, LNP-S, * 1 01/30/2022 [facility]* <C> INFLUENZA, ADJUVANTED, QUADRIVAL* 01/30/2022 [facility]* PNEUMOCOCCAL CONJUGATE PCV20, PO* 09/05/2021 [facility]* PNEUMOCOCCAL POLYSACCHARIDE PPV23 07/19/2020 [facility]* PNEUMOCOCCAL POLYSACCHARIDE PPV23 1 04/08/2012 IZG:IRENE IIS TDAP 07/16/2022 [facility]* ZOSTER LIVE 05/31/2014 . JUNI* ZOSTER RECOMBINANT 1 07/19/2020 [facility]* /sree/ MARGA SHARP MD STAFF PHYSICIAN Signed: 02/05/2024 15:28 MARGA SHARP [facility] Feb 05, 2024 03:28 PM PHYSICIAN LETTERS: LOCAL TITLE: TEST RESULT GENERAL LETTER STL STANDARD TITLE: PHYSICIAN LETTERS DATE OF NOTE: FEB 05, 2024@15:28 ENTRY DATE: FEB 05, 2024@15:28:16 AUTHOR: MARGA SHARP EXP COSIGNER: URGENCY: STATUS: COMPLETED [facility] [address] [place] [address] FEB 05, 2024 CARLOS CORDERO [address] [place] [address] Dear Carlos Cordero, I would like to update you on your recent test results. LIPID PROFILE - High cholesterol and triglycerides (lipids) are risk factors for heart disease. Your cholesterol should fall between 140 and 200, and your triglycerides levels should be less than or equal to 150. HDL is the good cholesterol and should ideally be greater than 40. LDL is the bad cholesterol and optimal levels should be less than 100 (near optimal is between 100 and 129). TRIGLYCERIDE 77 mg/dL 02/04/2024 14:46 CHOLESTEROL 145 mg/dL 02/04/2024 14:46 HDL(New) 74 mg/dL 02/04/2024 14:46 CALCULATED LDL 56 mg/dL 02/04/2024 14:46 No DIRECT LDL EO data found These readings are within normal limits. GREAT JOB! -------- HEMOGLOBIN A1C - Gives us information about your diabetes (sugar or glucose) control over the past 3 months. Your target is to keep your A1C below 6 %. HGA1C 5.4 % 02/04/2024 14:46 These readings are within normal limits. CBC - A complete blood count (CBC) gives important information about the kinds and numbers of cells in the blood, especially red blood cells, white blood cells, and platelets. HGB 14.9 g/dL 02/04/2024 14:46 HEMATOCRIT 44.1 % (02/04/24 14:46) PLT 242 10*3/uL 02/04/2024 14:46 WHITE BLOOD COUNT 7.8 10*3/uL (02/04/24 14:46) These readings are within normal limits. CHEM 7 - This is important information about the current status of your kidneys, liver, and electrolyte and acid/base balance as well as of your blood sugar and blood proteins. SODIUM 141 mEq/L 02/04/2024 14:46 POTASSIUM 4.1 mEq/L 02/04/2024 14:46 CHLORIDE 104 mEq/L 02/04/2024 14:46 UREA NITROGEN 17.5 mg/dL 02/04/2024 14:46 CREATININE 0.79 mg/dL 02/04/2024 14:46 CALCIUM 10.3 mg/dL 02/04/2024 14:46 CARBON DIOXIDE 28 mEq/L 02/04/2024 14:46 GLUCOSE 99 mg/dL 02/04/2024 14:46 EGFR (CKD-EPI 2020) 96.2 02/04/2024 14:46 These readings are within normal limits. LIVER FUNCTION TESTS NORMAL Test Name Result Units Range --------- ------ ----- ----- PROTEIN 7.6 g/dL 6 - 8.6 ALBUMIN 4.6 g/dL 3.4 - 5 ALKALINE PHOSPHATASE 51 U/L 40 - 150 ALT/SGPT 30 U/L 8 - 40 AST/SGOT 24 U/L 5 - 34 TOTAL BILIRUBIN 0.7 mg/dL 0.2 - 1.2 CONJ. BILIRUBIN 0.3 mg/dL 0 - 0.5 PLAN Please continue your treatment as we discussed during your visit. If you have any questions please call your pillowcase maker. I look forward to seeing you at your next clinic appointment. Thank you for choosing the [facility] for your healthcare. -------- FUTURE APPOINTMENTS: 02/19/2024 13:30 ANJU-ULTRASOUND (1) 03/02/2024 13:00 ANJU-OPTOMETRY 9 04/28/2024 13:00 ANJU-ORTHO GLADYS AYALA 06/04/2024 13:00 ANJU-ENDOCRINOLOGY [place] 08/03/2024 13:15 ANJU-PACT HONOR RES 67 01/22/2025 13:00 ANJU-OLV DERM CLINIC Dr. Marga Sharp Physician, Primary Care [address] [place] [address] Clinic Clinic Sincerely, MARGA SHARP MD STAFF PHYSICIAN CARLOS CORDERO [facility] Feb 04, 2024 01:13 PM NURSING NOTE: LOCAL TITLE: V15 PACT FACE TO FACE NOTE STL STANDARD TITLE: NURSING NOTE DATE OF NOTE: FEB 04, 2024@13:13 ENTRY DATE: FEB 04, 2024@13:13:50 AUTHOR: TONYA OVIEDO COSIGNER: URGENCY: STATUS: COMPLETED Provider Visit: Patient Identifiers : Full Name Date of Reason for visit: Established Follow-Up routine. Reports cancer treatment completed. C/O chronic knee pain, hot flashes at times. Mode of Arrival: Ambulatory Allergy Review: LISINOPRIL Allergy list reviewed and remains current. Recent Vital Signs: Temperature: 98.8 F [37.1 C] (02/04/2024 13:05) Pulse: 83 (02/04/2024 13:05) Respiration: 16 (02/04/2024 13:05) B/P: 130/90 (02/04/2024 13:05) Pain: 4 (02/04/2024 13:05) Wt: 199.88 lb [90.66 kg] (02/04/2024 13:05) Ht: 71 in [180.3 cm] (12/30/2023 13:06) BMI: 27.9 POX: 99% (02/04/2024 13:05) Blood sugar glucometer readin Would you like to discuss any personal problem, family problem, alcohol use, drug use, or a mental or emotional illness? No Pain Interview Verbal patient Pain Rating Score: 4 Plan of Care: Will inform physician/provider of patient's pain. Contact provided Primary Care phone number and encouraged to call if any questions or concerns. Review that after hours nurse line [phone] and emergency room are available 29/10 for patient use. Contact verbalized good understanding. Suicide Screen - V: C-SSRS Screening Door-Suicide Severity Rating Scale (C-SSRS Screener) 1. Over the past month, have you wished you were or wished you could go to sleep and not wake up? No 2. Over the past month, have you had any actual thoughts of killing yourself? No 3. Over the past month, have you been thinking about how you might do this? Response not required due to responses to other questions. 4. Over the past month, have you had these thoughts and had some intention of acting on them? Response not required due to responses to other questions. 5. Over the past month, have you started to work out or worked out the details of how to kill yourself? Response not required due to responses to other questions. 6. If yes, at any time in the past month did you intend to carry out this plan? Response not required due to responses to other questions. 7. In your lifetime, have you ever done anything, started to do anything, or prepared to do anything to end your life (for example, collected pills, obtained a gun, gave away valuables, went to the roof but didn't jump)? No 8. If YES, was this within the past 3 months? Response not required due to responses to other questions. Depression Screening - V: Perform PHQ-2 A PHQ-2 screen was performed. The score was 0 which is a negative screen for depression. Over the past two weeks, how often have you been bothered by the following problems? 1. Little interest or pleasure in doing things Not at all 2. Feeling down, depressed, or hopeless Not at all /es/ TONYA OVIEDO LICENSED PRACTICAL NURSE Signed: 02/04/2024 13:18 TONYA OVIEDO [facility] Feb 04, 2024 12:55 PM PRIMARY CARE NOTE: LOCAL TITLE: PRIMARY CARE PROVIDER ESTABLISHED VISIT [facility] STANDARD TITLE: PRIMARY CARE NOTE DATE OF NOTE: FEB 04, 2024@12:55 ENTRY DATE: FEB 04, 2024@12:55:14 AUTHOR: ROSETTA NEELY III EXP COSIGNER: MARGA SHARP URGENCY: STATUS: COMPLETED PRIMARY CARE PROVIDER ESTABLISHED VISIT [facility] Has ADDENDA CC: Routine f/u SUBJECTIVE Carlos Cordero is a 68yoM with a history of HTN, HLD, GERD, HepC s/p treatment, prostate cancer s/p resection, glaucoma, rosacea, DJD, lumbar fusion, ulnar neuropathy and DORY who presents for routine follow up appointment. Last appointment on: 11/13/[address] Santiago for Primary care New complaints: - R GROIND MASS: concerned about what it is in setting of radiation therapy earlier this year for recurrence of prostate cancer - Hx PROSTATE CANCER: follows with [facility] for care, has PSA every 6 months. Had radiation therapy earlier 2023 for it - BILATERAL KNEE PAIN: sees ortho at [facility]. Given meloxicam and asking if needs refill. Says adrianne has helped but has not tried tylenol regularly. Recently had BURNS injection and cortisone to shoulder - ROSASEA: follows Derm at [facility]: remainder of health care maintenance and screening at non [facility] provider - pt was accompanied by his today who helped clarify treatment dates and history ROS: Negative unless noted in HPI Medical history: 1) Ulnar Neuropathy (ICD-9-CM 355.9) 2) Hepatitis C, Chronic 3) Gastro-esophageal reflux disease (SNOMED CT 418610723) 4) Benign prostatic hyperplasia 5) Pancreatic Cyst/Pseudocyst 6) Sleep Apnea W/Hypersomnulence 7) Hypertension * (ICD-9-CM 401.9) 8) Obesity (SNOMED CT 393283975) 9) Erectile dysfunction (SNOMED CT 284977076) 10) Dyslipidemia (ICD-9-CM 272.4) 11) Spinal stenosis of lumbar region (SNOMED CT 77867576) 12) Hyperlipidemia 13) Prostate cancer 14) Closed fracture radial styloid 15) Closed fracture of styloid process of ulna 16) Arthritis of both knees 17) Hypogonadism 18) Exposure to potentially hazardous substance ([facility] [id number]) 19) Calcific tendinitis of right shoulder Medications: Active and Recently Outpatient Medications (including Supplies): Active Outpatient Medications Status ========= 1) CARBOXYMETHYLCELLULOSE NA 1% OPH GEL INSTILL 2 DROPS ACTIVE INTO BOTH EYES FOUR TIMES A DAY NEEDED FOR DRY EYES 2) DEPEND UNDERWEAR,MAXIMUM,MEN LARGE USE 1 DIAPER TO ACTIVE AFFECTED AREA(S) 5 TIMES A DAY NEEDED FOR INCONTINENCE Inactive Outpatient Medications Status ========= 1) ARTIFICIAL TEARS POLYVINYL ALCOHOL INSTILL 1 DROP IN BOTH EYES FOUR TIMES A DAY NEEDED FOR DRY EYE(S) 2) ARTIFICIAL TEARS PVA 1.4%/POVIDONE (PF) INSTILL 1 DROP IN BOTH EYES TWICE A DAY FOR DRY EYE(S) 3) KETOCONAZOLE 2% SHAMPOO USE SHAMPOO TO AFFECTED AREA(S) ONCE A DAY FOR DANDRUFF (EXTERNAL USE ONLY) (SHAKE WELL) 4) LIFITEGRAST 5% OPH SOLN 0.2ML INSTILL 1 DROP IN BOTH EYES EVERY 12 HOURS FOR DRY EYE(S) 5) METRONIDAZOLE 0.75% TOP CREAM APPLY SPARINGLY TO AFFECTED AREA(S) THREE TIMES A DAY FOR ROSACEA (TOPICAL USE ONLY) 6) TRETINOIN 0.05% CREAM APPLY LIGHTLY TO AFFECTED AREA(S) AT BEDTIME FOR ACNE. Active Non-VA Medications Status ========= 1) Non-VA APIXABAN 5MG TAB 5MG BY MOUTH TWICE A DAY ACTIVE 2) Non-VA ASPIRIN 81MG EC TAB 81 MG BY MOUTH ONCE A DAY ACTIVE 3) Non-VA CLONAZEPAM 0.5MG TAB 0.5MG BY MOUTH THREE ACTIVE TIMES A DAY NEEDED 4) Non-VA CYCLOBENZAPRINE HCL 10MG TAB 10MG BY MOUTH ACTIVE THREE TIMES A DAY NEEDED 5) Non-VA DICLOFENAC NA 50MG EC TAB 50MG BY MOUTH EVERY ACTIVE MORNING AND EVENING 6) Non-VA DILTIAZEM (EQV-TIAZAC) 300MG 24HR CAP 300MG BY ACTIVE MOUTH EVERY MORNING BEFORE A MEAL 7) Non-VA ESZOPICLONE 2MG TAB 2MG BY MOUTH AT BEDTIME ACTIVE 8) Non-VA FISH OIL 1000MG (500MG DHA/EPA) CAP 2000MG BY ACTIVE MOUTH TWICE A DAY 9) Non-VA HYDROCHLOROTHIAZIDE TAB BY MOUTH ACTIVE 10) Non-VA LOSARTAN 100MG TAB 100MG BY MOUTH ONCE A DAY ACTIVE 11) Non-VA METFORMIN HCL 1000MG TAB 500MG BY MOUTH TWICE ACTIVE A DAY WITH MEALS 12) Non-VA OXYCODONE 10MG/ACETAMINOPHEN 325MG TAB 1 ACTIVE TABLET BY MOUTH EVERY 6 HOURS NEEDED 13) Non-VA PANTOPRAZOLE NA 40MG EC TAB 40MG BY MOUTH ACTIVE EVERY MORNING BEFORE A MEAL 14) Non-VA PRAVASTATIN NA 40MG TAB 40MG BY MOUTH EVERY ACTIVE EVENING 15) Non-VA SEMAGLUTIDE 0.25MG/0.375ML INJ PEN 3ML 0.25MG ACTIVE (0.1875ML) UNDER THE SKIN EVERY WEEK 16) Non-VA TADALAFIL 5MG TAB 5MG BY MOUTH AT BEDTIME ACTIVE 17) Non-VA TESTOSTERONE (ANDROGEL) 1% 5GM/PKT GEL 1 ACTIVE SPARINGLY TO AFFECTED AREA(S) EVERY MORNING 18) Non-VA TIZANIDINE HCL 4MG TAB 4MG BY MOUTH THREE ACTIVE TIMES A DAY 19) Non-VA TRAMADOL HCL 50MG TAB 2 TABLETS BY MOUTH FOUR ACTIVE TIMES A DAY NEEDED 27 Total Medications Allergies: LISINOPRIL Surgical History: - prior prostatectomy - L2-5 fusion with revision Social History: - non smoker - rare EtOH, one drink every two weeks - no illicit drugs Family History: Physical Exam: Today's Vitals: BP: 130/90 P: 83 R: 16 WT: 199.88 T: 98.8 HT: General: No acute distress HEENT: Normocephalic, atraumatic, moist oral mucosa Neck: No JVD is appreciated CV: Regular rate and rhythm, no murmurs/rubs/gallops Lung: Clear to ausculation bilaterally, no crackles, no wheezes Abdomen: soft, nontender, nondistended, bowel sounds present Ext: No deformity, no edema. pt has small 1cm mobile, nontender subcutaneous mass to right inguinal area. Not a hernia. Also has a small 1cm nodule in left groin area too. Neuro: No focal deficits Psych: Appropriate mood and affect Lab Values: Reviewed ASSESSMENT AND PLAN: CARLOS CORDERO is a 68 year old WHITE MALE with history significant for #Lumbar spodylosis s/p L2-5 fusion 06/2021 s/p revision - Complicated by R foot drop and fecal/urinary incontinence - S/p PT with little improvement in symptoms. --Neurosurgery follwing #Bilateral knee osteoarthritis L>R - S/p steroid injections and BURNS injections -- [facility] > s/p viscosupplement injections and R shoulder injection -- given Rx for tylenol and aleve instead of meloxicam for pain -- pt also has cyclobenzaprine he occasionally uses for back pain #Prostate Ca s/p resection #hypogonadism - Following with Endocrinology and [facility] - Continue Tadalafil 5mg #R groin mass - US of pelvis and R Groin ordered today #Afib, well controlled - Follows with outside [employer] Dr. Vance - Eliquis 5mg BID #hypogonadism - follows with endocrinology > pt states testosterone recently stopped due to recurrenct of prostate cancer > dexa scan with normal bone mass 01/2022 #hypertension -Diltiazem 300mg daily -HCTZ 12.5mg daily -Losartan 100mg daily #HLD -Pravastatin 40mg -Fish oil 4000mg #GERD -pantoprazole 40mg (PRN) #Rosacea #seborrheaic dermatitis, well controlled #sebaceous hyperplasia - ketokonazole 2% shampoo -Tretinoin #DM- well controlled - Last A1c 5.3% (10/2022) - Ozempic Qweekly - Metformin 1000mg BID #Insomnia -clonazepam 1mg ODT -Pramipexole 0.25mg -Eszopiclone 3mg tab #DORY- unable to tolerate CPAP Health Care Maintenance - CRC screenin02/2019, zero polyps, repeat 2028 - Lung cancer screening: non smoker - AAA screening: none smoker - Prostate cancer screening: - HgbA1c: 5.3 on 10/29/2022 - ID screening: [] HIV - negative 07/16/22 [] HCV Ab - negative 03/05/2008 - Vaccinations: follows with outside PCP [] Pneumococcal - [] TDAP - [] Influenza - [] Zoster - [] COVID-19 - Labs ordered: Hep C, CBC, renal panel, Lipid panel, HgbA1c Rx ordered: tylenol and aleve Imaging: US of R groin area Consults: none Follow up: 6 months - review US of groin - review knee pain/shoulder pain, pt follows ortho - rest of HCM at outside PCP - given letter to have outside labs forwarded to or Myself Patient seen and discussed with the attending physician, Dr. Sharp. Rosetta Neely III, MD Internal Medicine, PGY-3 /es/ Rosetta Neely III, MD Resident Physician Signed: 02/04/2024 16:36 /es/ MARGA SHARP MD STAFF PHYSICIAN Cosigned: 02/05/2024 15:23 02/05/2024 ADDENDUM STATUS: COMPLETED The patient was discussed with the resident and I have independently reviewed the chart and relevant labs and imaging. I agree with the assessment and plan as documented in the resident's note with the following additions: 68y/o male with PMH of HTN, HLD, GERD, HepC s/p treatment, prostate cancer s/p resection, glaucoma, rosacea, DJD, Lumbar fusion surgery, ulnar neuropathy and DORY, hypogonadism on androgel -b/l groin cyst vs lipoma: u/s pending -labs today ==PREVENTATIVE CARE== - PSA (q2y men 55-69): 0.133 ng/mL 10/29/2022 11:29 - Colorectal cancer screening (45-75y): 02/2019 - CRC screen FIT: Occult Blood - Osteoporosis (65y DEXA): 01/2022 no further follow up req - HGA1C 5.4 % 02/04/2024 14:46 - CALCULATED LDL 56 mg/dL 02/04/2024 14:46 - HIV (once 15-65y): NONREACTIVE 07/2022 - Hep C (once 18-79y): REACTIVE S/CO H* s/p treatment with SVR ==TOBACCO USE== -lifetime nonsmoker Immunization Series Date Facility Reaction Info COVID-19 (PFIZER), MRNA, LNP-S, * 1 01/30/2022 [facility]* <C> INFLUENZA, ADJUVANTED, QUADRIVAL* 01/30/2022 [facility]* PNEUMOCOCCAL CONJUGATE PCV20, PO* 09/05/2021 [facility]* PNEUMOCOCCAL POLYSACCHARIDE PPV23 07/19/2020 [facility]* PNEUMOCOCCAL POLYSACCHARIDE PPV23 1 04/08/2012 [facility]MO IIS TDAP 07/16/2022 [facility]* ZOSTER LIVE 05/31/2014 [facility]* ZOSTER RECOMBINANT 1 07/19/2020 [facility]* /es/ MARGA SHARP MD STAFF PHYSICIAN Signed: 02/05/2024 15:28 02/11/2024 ADDENDUM STATUS: COMPLETED Ms. Luna, Can you please let the know that his hepC testing shows no virus.Remains negative, so we can say he remains in full remission. I will send a copy of his test results. Thank you /sree/ MARGA SHARP MD STAFF PHYSICIAN Signed: 02/11/2024 09:57 Receipt Acknowledged By: 02/11/2024 10:30 /collin RAI Registered Nurse 02/11/2024 ADDENDUM STATUS: COMPLETED RNCM called patient to relay above message from PCP, patient verbalized understanding. /collin RAI Registered Nurse Signed: 02/11/2024 10:31 02/20/2024 ADDENDUM STATUS: COMPLETED 13NOV US Impression FINDINGS/IMPRESSION: There is a 1.5 x 0.8 x 1.3 cm, ill-defined, hypoechoic mass with posterior acoustic shadowing, which demonstrate some capsular blood flow within the inferomedial aspect. These findings are indeterminate in etiology. FNA is recommended to characterize specific etiology, especially in view of the history of prostate cancer. Called patient, confirmed full name and last 4 SSN. -reviewed results and recommendation for FNA, as above -patient is amenable to proceeding with this -IR consult entered Patient agrees with plan, all questions answered /sree/ Philippe Kelley DO, MAMEFP Staff Physician, Primary Care Signed: 02/20/2024 09:20 ROSETTA NEELY III [facility]
--- OUTSIDE RECORDS SUMMARY | 2024-07-30 13:34 | XMS_ITS | Continuity of Care Document ---
Author Organization [facility] Address [address] [place] [address] Phone Care Team Providers Care Communications Administrator Name Role Phone Michael Rogers MD Unavailable Unavailabl e Allergies, Adverse Reactions, Alerts Substance Reaction Status Criticality No Known Allergies Active No Inform ation Medications Medication Instructions Dosage Effective Dates (start - stop) Status Comments diltiazem CD 300 mg capsule,extended release 24 hr - Active sildenafil 100 mg tablet - A ctive tadalafil 5 mg tablet - Acti ve cyclobenzaprine 10 mg tablet - Active AndroGel 20.25 mg/1.25 gram (1.62 %) transdermal gel pump - Active tramadol 50 mg tablet - Acti ve folic acid 1 mg tablet - Act mitra pramipexole 0.25 mg tablet - Active pantoprazole 40 mg tablet,delayed release - Active doxycycline hyclate 100 mg tablet - Active clonazepam 1 mg disintegrating tablet - Active eszopiclone 3 mg tablet - Ac tive pravastatin 40 mg tablet - A ctive Tekturna HCT 300 mg-25 mg tablet - Active losartan 100 mg tablet - Act mitra olmesartan 40 mg tablet - Ac tive diclofenac sodium 75 mg tablet,delayed release - Active ketoconazole 2 % shampoo - A ctive testosterone 20.25 mg/1.25 gram (1.62 %) transdermal gel pump - Active Procedures Procedure Date Deluxe Shoulder Immobilizer Global/Postop followup visit Removal of radial styloid X-ray exam wrist, complete, 3+ views Apr Office/outpatient visit,new, low 2019 Advance Directives Directive Yes / No Effective Date File Name No Information Encounters Encounter Description Practice Location Reason(s) For Visit Diagnoses Date Provider Providers Copied on Encounter [facility], [address], [id number], [place] tel:[phone] [facility] Radial styloid tenosynovitis [de Quervain] 0 Ken Rodriguez. [address] [place] [address], [id number], [place]. tel:[phone] Referring Provider: Michael Lamar, [address] [facility] [address] [facility], [place], [address] . tel:[phone] [facility], [facility], [id number], [place] tel:[phone] [facility] Right wrist (chief complaint) Displaced fracture of right radial styloid process, subsequent encounter for closed fracture w/ nonunionCarpal tunnel syndrome, right upper limb 0 Genny Cheng. [address] [facility] [facility] [address], [place], [id number], [place]. tel:[phone] [facility], [address], [id number], [place] tel:[phone] [facility] [place] No Information 0 Genny Cheng. [address] [facility], [address], [id number], [place]. tel:[phone] Referring Provider: Skylar Yoon, [address] [facility] [address], [place], [address] . tel:[phone] [facility], [address] [facility] [address], [place], [id number], tel:[phone] [facility] Radial styloid tenosynovitis [de Quervain]Carpal tunnel syndrome, right upper limb 0 Ken Rodriguez. [address] [facility], [facility], [place], [place], [id number], [place]. tel:[phone] Office/outpat ient visit,[facility], [address] [facility] [address], [place], [place], [id number], tel:[phone] [facility] right wrist (chief complaint) Pain in right wristRadial styloid tenosynovitis [de Quervain] 0 Ken Rodriguez. [address] [place] [address], [place] [address], [place], [place], [id number], . tel:[phone] Referring Provider: Michael Lamar, [facility] [place] [address], [place], [address] . tel:[phone] Family History Family Member Type Diagnosis Age At Onset Mother Problem (finding) Osteoarthritis Father Problem (finding) Hypertension Father Problem (finding) Heart Disease Mother Problem (finding) Osteoporosis Father Problem (finding) Stroke Payers Payer name Insurance type Covered libertarian ID Syed dias(s) [place] [employer] [facility] [id number] Social History Type Description Quantity Date Captured Comments Sex Male Smoking Status No Information Chief Complaint And Reason For Visit No Information Reason For Referral Reason For Referral No Information Plan Of Treatment Date Type Action Status Referral Ordered: X-ray exam wrist, complete, 3+ views RT ordered History Of Present Illness Encounter Date Complaint History Of Prese nt Illness Right wrist Carlos is 2 we eks out from a radial styloidectomy of the right wrist and an open right carpal tunnel release on June 05, 2019. His pain is well-controlled. He returns for follow-up. right wrist Carlos present s to the office today on April 30, 2019. He is here today because of right wrist pain. Carlos describes an injury to the right wrist that occurred 8 months ago on August 20, 2018. Carlos explains that he slipped and fell on his outstretched right upper extremity. He reports that he fractured his right wrist at that time, although he did not require surgery. Carlos has had persisted pain in the right wrist ever since the injury. He rates his current pain a 4 on a scale of 0-10. He describes the pain as dull, stabbing, and throbbing. Carlos also reports decreased motion, numbness, popping, stiffness, tingling, and weakness. His right wrist pain is worse with lifting and pushing. The pain is better with rest and a splint. Carlos presents today for further evaluation and treatment of his right wrist pain. Functional Status Date Functional Assessmen t No Information Instructions Date Instruction Additional Infor mation No Information Assessments Type Assessment Date No Information Patient Care Teams Name Effective Dates (start - stop) Status Members No Information
--- OUTSIDE RECORDS SUMMARY | 2024-07-30 13:34 | XMS_ITS | Encounter Summary ---
Author Name [facility] [facility] [place] [facility] [place] [facility] [place] Address [address] [place] [address] Support Name Relationship Address Phone ERLIN CORDERO Next of Kin [address] [place] [address] ERLIN CORDERO Emergency Contact [address] [place] [address] [address] Next of [address] [place] [address] Care Team Providers Care Contract Officer Name Role Phone SHOAIB SHARP Primary Care [...] GN SERVI CE BENE Apr 10, 2020 [id number] [phone] CORDERO,RE INALDO PATIENT [facility] POINT OF SERVICE FOREI GN SERVI CE BENE Apr 10, 2020 [id number] [phone] CORDERO,RE INALDO PATIENT [facility] ([id number]) PRESCRIPT ION FEPRX Apr 17, 2015 [id number] CORDERO,RE INALDO PATIENT [facility] PRESCRIPT ION FOREI GN SERVI CE BENE Apr 10, 2020 [id number] [phone] CELINE CORDERO PATIENT [facility]) PRESCRIPT ION RX PLAN Apr 10, 2020 FSBPACT MARLYS [id number] [phone] CELINE CORDERO PATIENT [facility]) PRESCRIPT ION FSBPA CTIVE Apr 10, 2020 [id number] [phone] CELINE CORDERO PATIENT MEDICARE (WNR) MEDICARE (M) PART B Feb 06, 2022 PART B [id number] CELINE CORDEROO PATIENT MEDICARE (WNR) MEDICARE (M) PART A Feb 06, 2019 PART A [id number] CELINE CORDERO PATIENT Selected Encounter This section includes the information on record at [place] for the Encounter. Date/Time Encounter Type Encounter Description Reason Provider Source Jun 04, 2024 01:00 PM OFFICE O/P EST HI 40 MIN ENDOCRINOLOGY ICD-10-CM 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 SAM GAXIOLA Marcelo Encounter Template Text not used by [place] Assessments - Encounter Diagnoses This section includes the primary and secondary diagnoses documented for the Encounter. Date/Time Primary/Secondary Diagnosis Diagnosis Name Provider Source Jun 12, 2024 02:24 PM PRIMARY Abn lev hormones in specimens from male genital organs SAM GAXIOLA [facility] Jun 12, 2024 02:24 PM SECONDARY Essential (primary) [facility] Plan of Treatment: Future Appointments (+ 6 months) and Future Tests (+/- 45 days) The Plan of Treatment section includes future care activities for the patient from all [place] treatmentfacilities. This section includes future appointments and future orders which are active, pending or scheduled. Future Appointments This section includes appointments that were scheduled to occur 6 months from the date of the Encounter, up to a maximum of 20 appointments. The data comes from all [place] treatment facilities. Appointment Date/Time Appointment Type Appointme nt Facility Name Jul 21, 2024 01:30 PM AMBULATORY - SURGERY [facility] Aug 03, 2024 01:15 PM AMBULATORY - MEDICINE [facility] Aug 03, 2024 02:30 PM AMBULATORY - SURGERY [facility] Vital Signs: All taken on the encounter date This section contains inpatient and outpatient Vital Signs collected on the date of the Encounter. Date/Time Temperature Pulse Blood Pressure Respiratory Rate SP02 Pain Height Weight Body Mass Index Source Jun 04, 2024 01:11 PM 97.3 92 120/76 16 97 5 202.7 28 [facility] Social History: Smoking Status (Most current) and Tobacco Use (All prior to encounter date) This section includes the most current, and the historical, smoking and tobacco- related health factors from the [place] facility where the Encounter took place. Current Smoking Status This section includes the most current smoking, or tobacco-related health factor, from the [place] facility where the Encounter took place. Date/Time Current Smoking Status Comment Facil ity Nov 13, 2022 01:15 PM VA-TOBACCO FORMER USER [facility] Tobacco Use History This section includes a history of the smoking, or tobacco-related health factors, that were collected on or before the date of the Encounter. The data comes from the [place] facility where the Encounter took place. Date/Time Smoking Status/Tobacco Use Comment F acility Nov 13, 2022 01:15 PM VA-TOBACCO QUIT 15 YRS OR MORE [facility] September 05, 2021 03:15 PM VA-TOBACCO FORMER USER [facility] September 05, 2021 03:15 PM VA-TOBACCO QUIT 15 YRS OR MORE [facility] Sep 17, 2017 03:16 PM QUIT TOBACCO >7 YEARS AGO [facility] Jul 23, 2016 01:30 PM QUIT TOBACCO >7 YEARS AGO [facility] Jun 20, 2015 02:17 PM QUIT TOBACCO >7 YEARS AGO [facility] May 31, 2014 01:22 PM QUIT TOBACCO >7 YEARS AGO [facility] Mar 16, 2013 01:09 PM LIFETIME NON-USER OF TOBACCO [facility] Dec 31, 2005 09:37 AM CURRENT NON-TOBACC O USER-HX OF USE [facility] Dec 31, 2005 09:37 AM TOBACCO TERMINATION STAGE [facility] Jul 02, 2005 11:53 AM CURRENT NON-TOBACC O USER-HX OF USE [facility] Jul 02, 2005 11:53 AM TOBACCO TERMINATION STAGE [facility] Encounter Notes: All associated encounter notes This section contains the clinical notes associated to the Encounter. Date/Time Encounter Note(s) Provider Source Jun 10, 2024 03:45 PM ADDENDUM: LOCAL TITLE: Addendum STANDARD TITLE: ADDENDUM DATE OF NOTE: JUN 10, 2024@15:45:16 ENTRY DATE: JUN 10, 2024@15:45:17 AUTHOR: ANASTACIO BENTON EXP COSIGNER: URGENCY: STATUS: COMPLETED 1544: Nelsy from Dr. Richards office called back and left vm concerning restarting of Testosterone; Dr. Richards states, at this time he would not recommend Mr. Cordero restarting the medication d/t the risk of reoccurance of prostate issues/cancer /es/ ANASTACIO BENTON MSN RN REGISTERED NURSE Signed: 06/10/2024 15:47 Receipt Acknowledged By: 06/11/2024 09:05 /es/ SAM ANGELA INTERNAL AUDIT CONSULTANT- ENDOCRINE NURSE PRACTITIONER --- Original Document --- 06/04/24 ENDOCRINOLOGY OUTPATIENT FOLLOW UP STL: HPI: MICHAEL CORDERO is a 69 yo WHITE MALE here for f/u on male hormone medical hx of obesity, GERD, DORY, chronic lower back pain and hx of prostate cancer s/p prostatectomy 2018. last visit 05/2023, 11/2022 Dr Moncada S: reports had recurrence of prostate cancer in the last year, got radiation and 1 dose of androgen deprivation therapy in October and was told that was all he needed reports f/b [facility] requesting to go back on hormone therapy reports oncology says no to hormone therapy and his civilian PCP says he can go back on hormone therapy but he can't [facility]s [facility] no hospitalizations, surgeries Patient also has a hx of hypogonadism which [facility] [place]. At that time he had symptoms of fatigue and hot flashes and was told that his testosterone level was low. He was then started on androgel and currently uses 3 pumps a day. AndroGel was prescribed by urologist at [facility] (per patient) who moved out of state. Patient was then referred to endocrinology for continuation of androGel. weight unchanged was tolerating androgel well Unable to have erections since prostatectomy. dexa shows normal bone mass 01/2022 Social hx: denies any substance use. Has 2 healthy children. Works for [employer]. no change in fam hx ROS: 10 point ROS negative x above Active Outpatient Medications (including Supplies): Active Outpatient Medications Status 1) ACETAMINOPHEN 325MG TAB TAKE TWO TABLETS BY MOUTH EVERY 6 ACTIVE HOURS NEEDED CAUTION: DO NOT EXCEED 4000MG PER DAY ACETAMINOPHEN (APAP) FROM ALL MEDS. Indication: FOR PAIN 2) CARBOXYMETHYLCELLULOSE NA 1% OPH GEL INSTILL 2 DROPS INTO ACTIVE BOTH EYES FOUR TIMES A DAY NEEDED FOR S Indication: DRY EYE 3) DEPEND UNDERWEAR,MAXIMUM,MEN LARGE USE 1 DIAPER TO AFFECTED ACTIVE AREA(S) 5 TIMES A DAY NEEDED FOR INCONTINENCE 4) NAPROXEN 250MG TAB TAKE ONE TABLET BY MOUTH EVERY 12 HOURS ACTIVE (S) NEEDED TAKE WITH FOOD. Indication: FOR PAIN Active Non-VA Medications Status 1) Non-VA APIXABAN 5MG TAB 5MG BY MOUTH TWICE A DAY ACTIVE Indication: FOR ANTICOAGULATION 2) Non-VA ASPIRIN 81MG EC TAB 81 MG BY MOUTH ONCE A DAY ACTIVE 3) Non-VA CLONAZEPAM 0.5MG TAB 0.5MG BY MOUTH THREE TIMES A DAY ACTIVE NEEDED 4) Non-VA CYCLOBENZAPRINE HCL 10MG TAB 10MG BY MOUTH THREE ACTIVE TIMES A DAY NEEDED 5) Non-VA DICLOFENAC NA 50MG EC TAB 50MG BY MOUTH EVERY MORNING ACTIVE AND EVENING 6) Non-VA DILTIAZEM (EQV-TIAZAC) 300MG 24HR CAP 300MG BY MOUTH ACTIVE EVERY MORNING BEFORE A MEAL 7) Non-VA ESZOPICLONE 2MG TAB 2MG BY MOUTH AT BEDTIME ACTIVE 8) Non-VA FISH OIL 1000MG (500MG DHA/EPA) CAP 2000MG BY MOUTH ACTIVE TWICE A DAY 9) Non-VA HYDROCHLOROTHIAZIDE TAB BY MOUTH ACTIVE Indication: FOR HIGH BLOOD PRESSURE 10) Non-VA LOSARTAN 100MG TAB 100MG BY MOUTH ONCE A DAY ACTIVE 11) Non-VA METFORMIN HCL 1000MG TAB 500MG BY MOUTH TWICE A DAY ACTIVE WITH MEALS 12) Non-VA OXYCODONE 10MG/ACETAMINOPHEN 325MG TAB 1 TABLET BY ACTIVE MOUTH EVERY 6 HOURS NEEDED 13) Non-VA PANTOPRAZOLE NA 40MG EC TAB 40MG BY MOUTH EVERY ACTIVE MORNING BEFORE A MEAL 14) Non-VA PRAVASTATIN NA 40MG TAB 40MG BY MOUTH EVERY EVENING ACTIVE 15) Non-VA SEMAGLUTIDE 0.25MG/0.375ML INJ PEN 3ML 0.25MG ACTIVE (0.1875ML) UNDER THE SKIN EVERY WEEK 16) Non-VA TADALAFIL 5MG TAB 5MG BY MOUTH AT BEDTIME ACTIVE 17) Non-VA TESTOSTERONE (ANDROGEL) 1% 5GM/PKT GEL 1 SPARINGLY TO ACTIVE AFFECTED AREA(S) EVERY MORNING 18) Non-VA TIZANIDINE HCL 4MG TAB 4MG BY MOUTH THREE TIMES A DAY ACTIVE 19) Non-VA TRAMADOL HCL 50MG TAB 2 TABLETS BY MOUTH FOUR TIMES A ACTIVE DAY NEEDED 23 Total Medications Allergies: LISINOPRIL PAST HISTORY: 1) Ulnar Neuropathy (ICD-9-CM 355.9) 2) Hepatitis C, Chronic 3) Gastro-esophageal reflux disease (SNOMED CT 850105743) 4) Benign prostatic hyperplasia 5) Pancreatic Cyst/Pseudocyst 6) Sleep Apnea W/Hypersomnulence 7) Hypertension * (ICD-9-CM 401.9) 8) Obesity (SNOMED CT 753507297) 9) Erectile dysfunction (SNOMED CT 507738870) 10) Dyslipidemia (ICD-9-CM 272.4) 11) Spinal stenosis of lumbar region (SNOMED CT 32669281) 12) Hyperlipidemia 13) Prostate cancer 14) Closed fracture radial styloid 15) Closed fracture of styloid process of ulna 16) Arthritis of both knees 17) Hypogonadism 18) Exposure to potentially hazardous substance (SCT [id number]) 19) Calcific tendinitis of right shoulder PHYSICAL EXAM: Vital Signs- Temperature: 97.3 F [36.3 C] (06/04/2024 13:11) HR: 92 (06/04/2024 13:11) BP: Measurement DT BP 06/04/2024 13:11 120/76 04/28/2024 13:06 156/73 02/04/2024 13:05 130/90 Weight: 202.7 lb [91.94 kg] (06/04/2024 13:11) Patient Weight History - Last Four 1. 202.7 lbs. / 91.9 kg. on JUN 04, 2024@13:11:19 2. 207.4 lbs. / 94.1 kg. on APR 28, 2024@13:06:05 3. 199.9 lbs. / 90.7 kg. on FEB 04, 2024@13:05:22 4. 204.0 lbs. / 92.5 kg. on DEC 30, 2023@13:06:14 BMI: 28.3 General: 70MALE NAD, WNWD HEENT: sclera anicteric LUNGS: CTAB, regular unlabored CVS: RRR, S1 S2, no S3 S4 or murmurs MOOD: appropriate, pleasant PRESIDENT & FOUNDER: non focal LABS: SODIUM 141 mEq/L 02/04/2024 14:46 POTASSIUM 4.1 mEq/L 02/04/2024 14:46 CHLORIDE 104 mEq/L 02/04/2024 14:46 UREA NITROGEN 17.5 mg/dL 02/04/2024 14:46 CREATININE 0.79 mg/dL 02/04/2024 14:46 CALCIUM 10.3 mg/dL 02/04/2024 14:46 CARBON DIOXIDE 28 mEq/L 02/04/2024 14:46 GLUCOSE 99 mg/dL 02/04/2024 14:46 EGFR (CKD-EPI 2020) 96.2 02/04/2024 14:46 HGA1C 5.4 % 02/04/2024 14:46 HGA1C 5.3 % 10/29/2022 11:29 HGA1C 5.5 % 07/16/2022 14:49 Lipid Panel: TRIGLYCERIDE 77 mg/dL 02/04/2024 14:46 CHOLESTEROL 145 mg/dL 02/04/2024 14:46 HDL(New) 74 mg/dL 02/04/2024 14:46 CALCULATED LDL 56 mg/dL 02/04/2024 14:46 No TSH (2YR) EO data found A/P: 1. Hypogonadism - dx in 2010 by outside provider based on symptoms of hot flashes, fatigue and low testosterone level - on AndroGel 1%, 3 pumps since 2010 - hx of prostate ca, s/p resection 2017. PSA 0.133 in 10/2022 has been f/b [facility] provider hx of DORY (did not tolerate CPAP) and endorses opioids use was [facility] 3 [facility] but has stopped since 10/2023 reported recurrence of prostate cancer in the last year, got radiation and 1 dose of androgen deprivation therapy in October and was told that was all he needed reports f/b [facility] Dr Jermain Lee PT2, pN0, CM0 in [facility] PSA 0.22 05/09/2023 radiation therapy ordered 08/2023, eligard 06/18/2023 1 month injection, to complete total 7 months, 07/2023 3 month injection and 10/2023 has a total T <5 05/12/2024 PSA <0.02 05/12/2024 - reviewed testosterone labs showing nl HCT and mid normal testosterone level 10/2022 - normal dexa from 2021 - advised to use CPAP for DORY d/w team about restarting pt willing to accept risks of prostate cancer RTC depending on if we are able to restart TRT per non-[facility] provider I spent 65 minutes on some or all of the following: chart review, history, physical examination, treatment planning, education and counseling of the patient/family/home child care provider, placing orders, communicating with other health care providers, and documentation in the electronic health record. /sree/ SAM ANGELA INTERNAL AUDIT CONSULTANT- ENDOCRINE NURSE PRACTITIONER Signed: 06/10/2024 08:35 06/10/2024 ADDENDUM STATUS: COMPLETED few suggestions from my team but general consensus is not to restart TRT called Dr Lee's nurse and left VM requesting their input on restarting TRT and call back ext [phone] option 2 for HCP option 0 for 2nd list of providers option [address] Lee waiting return call on yes or no to restarting TRT alerting nurse for awareness and follow up if we don't hear back please /sree/ SAM ANGELA [facility] ENDOCRINE NURSE PRACTITIONER Signed: 06/10/2024 08:36 Receipt Acknowledged By: 06/10/2024 15:19 /sree/ Michael Tran, RN, BSN REGISTERED NURSE 06/11/2024 ADDENDUM STATUS: UNSIGNED You may not VIEW this UNSIGNED Addendum. ANASTACIO BENTON [facility] Jun 10, 2024 08:35 AM ADDENDUM: LOCAL TITLE: Addendum STANDARD TITLE: ADDENDUM DATE OF NOTE: JUN 10, 2024@08:35:35 ENTRY DATE: JUN 10, 2024@08:35:35 AUTHOR: SAM GAXIOLA EXP COSIGNER: URGENCY: STATUS: COMPLETED few suggestions from my team but general consensus is not to restart TRT called Dr Lee's nurse and left VM requesting their input on restarting TRT and call back ext [phone] option 2 for HCP option 0 for 2nd list of providers option [address] Lee waiting return call on yes or no to restarting TRT alerting nurse for awareness and follow up if we don't hear back please /collin ANGELA [facility] ENDOCRINE NURSE PRACTITIONER Signed: 06/10/2024 08:36 Receipt Acknowledged By: 06/10/2024 15:19 /sree/ Michael Tran, RN, BSN REGISTERED NURSE --- Original Document --- 06/04/24 ENDOCRINOLOGY OUTPATIENT FOLLOW UP STL: HPI: MICHAEL CORDERO is a 69 yo WHITE MALE here for f/u on male hormone medical hx of obesity, GERD, DORY, chronic lower back pain and hx of prostate cancer s/p prostatectomy 2017. last visit 05/2023, 11/2022 Dr Moncada S: reports had recurrence of prostate cancer in the last year, got radiation and 1 dose of androgen deprivation therapy in October and was told that was all he needed reports f/b [facility] requesting to go back on hormone therapy reports oncology says no to hormone therapy and his civilian PCP says he can go back on hormone therapy but [facility]'t [facility] no [facility], surgeries Patient also has a hx of [facility]adism which [facility]. At that time he had symptoms of fatigue and hot flashes and was told that his testosterone level was low. He was then started on androgel and currently uses 3 pumps a day. AndroGel was prescribed by urologist at [facility] (per patient) who moved out of state. Patient was then referred to endocrinology for continuation of androGel. weight unchanged was tolerating androgel well Unable to have erections since prostatectomy. dexa shows normal bone mass 01/2022 Social hx: denies any substance use. Has 2 healthy children. Works for [employer]. no change in fam hx ROS: 10 point ROS negative x above Active Outpatient Medications (including Supplies): Active Outpatient Medications Status 1) ACETAMINOPHEN 325MG TAB TAKE TWO TABLETS BY MOUTH EVERY 6 ACTIVE HOURS NEEDED CAUTION: DO NOT EXCEED 4000MG PER DAY ACETAMINOPHEN (APAP) FROM ALL MEDS. Indication: FOR PAIN 2) CARBOXYMETHYLCELLULOSE NA 1% OPH GEL INSTILL 2 DROPS INTO ACTIVE BOTH EYES FOUR TIMES A DAY NEEDED FOR S Indication: DRY EYE 3) DEPEND UNDERWEAR,MAXIMUM,MEN LARGE USE 1 DIAPER TO AFFECTED ACTIVE AREA(S) 5 TIMES A DAY NEEDED FOR INCONTINENCE 4) NAPROXEN 250MG TAB TAKE ONE TABLET BY MOUTH EVERY 12 HOURS ACTIVE (S) NEEDED TAKE WITH FOOD. Indication: FOR PAIN Active Non-VA Medications Status 1) Non-VA APIXABAN 5MG TAB 5MG BY MOUTH TWICE A DAY ACTIVE Indication: FOR ANTICOAGULATION 2) Non-VA ASPIRIN 81MG EC TAB 81 MG BY MOUTH ONCE A DAY ACTIVE 3) Non-VA CLONAZEPAM 0.5MG TAB 0.5MG BY MOUTH THREE TIMES A DAY ACTIVE NEEDED 4) Non-VA CYCLOBENZAPRINE HCL 10MG TAB 10MG BY MOUTH THREE ACTIVE TIMES A DAY NEEDED 5) Non-VA DICLOFENAC NA 50MG EC TAB 50MG BY MOUTH EVERY MORNING ACTIVE AND EVENING 6) Non-VA DILTIAZEM (EQV-TIAZAC) 300MG 24HR CAP 300MG BY MOUTH ACTIVE EVERY MORNING BEFORE A MEAL 7) Non-VA ESZOPICLONE 2MG TAB 2MG BY MOUTH AT BEDTIME ACTIVE 8) Non-VA FISH OIL 1000MG (500MG DHA/EPA) CAP 2000MG BY MOUTH ACTIVE TWICE A DAY 9) Non-VA HYDROCHLOROTHIAZIDE TAB BY MOUTH ACTIVE Indication: FOR HIGH BLOOD PRESSURE 10) Non-VA LOSARTAN 100MG TAB 100MG BY MOUTH ONCE A DAY ACTIVE 11) Non-VA METFORMIN HCL 1000MG TAB 500MG BY MOUTH TWICE A DAY ACTIVE WITH MEALS 12) Non-VA OXYCODONE 10MG/ACETAMINOPHEN 325MG TAB 1 TABLET BY ACTIVE MOUTH EVERY 6 HOURS NEEDED 13) Non-VA PANTOPRAZOLE NA 40MG EC TAB 40MG BY MOUTH EVERY ACTIVE MORNING BEFORE A MEAL 14) Non-VA PRAVASTATIN NA 40MG TAB 40MG BY MOUTH EVERY EVENING ACTIVE 15) Non-VA SEMAGLUTIDE 0.25MG/0.375ML INJ PEN 3ML 0.25MG ACTIVE (0.1875ML) UNDER THE SKIN EVERY WEEK 16) Non-VA TADALAFIL 5MG TAB 5MG BY MOUTH AT BEDTIME ACTIVE 17) Non-VA TESTOSTERONE (ANDROGEL) 1% 5GM/PKT GEL 1 SPARINGLY TO ACTIVE AFFECTED AREA(S) EVERY MORNING 18) Non-VA TIZANIDINE HCL 4MG TAB 4MG BY MOUTH THREE TIMES A DAY ACTIVE 19) Non-VA TRAMADOL HCL 50MG TAB 2 TABLETS BY MOUTH FOUR TIMES A ACTIVE DAY NEEDED 23 Total Medications Allergies: LISINOPRIL PAST HISTORY: 1) Ulnar Neuropathy (ICD-9-CM 355.9) 2) Hepatitis C, Chronic 3) Gastro-esophageal reflux disease (SNOMED CT 502180767) 4) Benign prostatic hyperplasia 5) Pancreatic Cyst/Pseudocyst 6) Sleep Apnea W/Hypersomnulence 7) Hypertension * (ICD-9-CM 401.9) 8) Obesity (SNOMED CT 035441162) 9) Erectile dysfunction (SNOMED CT 655842640) 10) Dyslipidemia (ICD-9-CM 272.4) 11) Spinal stenosis of lumbar region (SNOMED CT 95295869) 12) Hyperlipidemia 13) Prostate cancer 14) Closed fracture radial styloid 15) Closed fracture of styloid process of ulna 16) Arthritis of both knees 17) Hypogonadism 18) Exposure to potentially hazardous substance ([facility] [id number]) 19) Calcific tendinitis of right shoulder PHYSICAL EXAM: Vital Signs- Temperature: 97.3 F [36.3 C] (06/04/2024 13:11) HR: 92 (06/04/2024 13:11) BP: Measurement DT BP 06/04/2024 13:11 120/76 04/28/2024 13:06 156/73 02/04/2024 13:05 130/90 Weight: 202.7 lb [91.94 kg] (06/04/2024 13:11) Patient Weight History - Last Four 1. 202.7 lbs. / 91.9 kg. on JUN 04, 2024@13:11:19 2. 207.4 lbs. / 94.1 kg. on APR 28, 2024@13:06:05 3. 199.9 lbs. / 90.7 kg. on FEB 04, 2024@13:05:22 4. 204.0 lbs. / 92.5 kg. on DEC 30, 2023@13:06:14 BMI: 28.3 General: 70MALE NAD, WNWD HEENT: sclera anicteric LUNGS: CTAB, regular unlabored CVS: RRR, S1 S2, no S3 S4 or murmurs MOOD: appropriate, pleasant PRESIDENT & FOUNDER: non focal LABS: SODIUM 141 mEq/L 02/04/2024 14:46 POTASSIUM 4.1 mEq/L 02/04/2024 14:46 CHLORIDE 104 mEq/L 02/04/2024 14:46 UREA NITROGEN 17.5 mg/dL 02/04/2024 14:46 CREATININE 0.79 mg/dL 02/04/2024 14:46 CALCIUM 10.3 mg/dL 02/04/2024 14:46 CARBON DIOXIDE 28 mEq/L 02/04/2024 14:46 GLUCOSE 99 mg/dL 02/04/2024 14:46 EGFR (CKD-EPI 2020) 96.2 02/04/2024 14:46 HGA1C 5.4 % 02/04/2024 14:46 HGA1C 5.3 % 10/29/2022 11:29 HGA1C 5.5 % 07/16/2022 14:49 Lipid Panel: TRIGLYCERIDE 77 mg/dL 02/04/2024 14:46 CHOLESTEROL 145 mg/dL 02/04/2024 14:46 HDL(New) 74 mg/dL 02/04/2024 14:46 CALCULATED LDL 56 mg/dL 02/04/2024 14:46 No TSH (2YR) EO data found A/P: 1. Hypogonadism - dx in 2010 by outside provider based on symptoms of hot flashes, fatigue and low testosterone level - on AndroGel 1%, 3 pumps since 2010 - hx of prostate ca, s/p resection 2017. PSA 0.133 in 10/2022 has been f/b [facility] provider hx of DORY (did not tolerate CPAP) and endorses opioids use was [facility] but [facility] stopped since 10/2023 reported recurrence of prostate cancer in the last year, got radiation and 1 dose of androgen deprivation therapy in October and was told that was all he needed reports f/b [facility] Dr Jermain Lee PT2, pN0, CM0 in [place] PSA 0.22 05/09/2023 radiation therapy ordered 08/2023, eligard 06/18/2023 1 month injection, to complete total 7 months, 07/2023 3 month injection and 10/2023 has a total T <5 05/12/2024 PSA <0.02 05/12/2024 - reviewed testosterone labs showing nl HCT and mid normal testosterone level 10/2022 - normal dexa from 2021 - advised to use CPAP for DORY d/w team about restarting pt willing to accept risks of prostate cancer RTC depending on if we are able to restart [place] per [place] provider I spent 65 minutes on some or all of the following: chart review, history, physical examination, treatment planning, education and counseling of the patient/family/home child care provider, placing orders, communicating with other health care providers, and documentation in the electronic health record. /sree/ SAM ANGELA [facility] ENDOCRINE NURSE PRACTITIONER Signed: 06/10/2024 08:35 SAM GAXIOLA [facility] Jun 04, 2024 01:15 PM ENDOCRINOLOGY OUTPATIENT NOTE: LOCAL TITLE: ENDOCRINOLOGY OUTPATIENT FOLLOW UP STL STANDARD TITLE: ENDOCRINOLOGY OUTPATIENT NOTE DATE OF NOTE: JUN 04, 2024@13:15 ENTRY DATE: JUN 04, 2024@13:15:08 AUTHOR: SAM GAXIOLA EXP COSIGNER: URGENCY: STATUS: COMPLETED ENDOCRINOLOGY OUTPATIENT FOLLOW UP STL Has ADDENDA HPI: MICHAEL CORDERO is a 69 yo WHITE MALE here for f/u on male hormone medical hx of obesity, GERD, DORY, chronic lower back pain and hx of prostate cancer s/p prostatectomy 2017. last visit 05/2023, 11/2022 Dr Moncada S: reports had recurrence of prostate cancer in the last year, got radiation and 1 dose of androgen deprivation therapy in October and was told that was all he needed reports f/b [facility] requesting to go back on hormone therapy reports oncology says no to hormone therapy and his civilian PCP says he can go back on hormone therapy but he can't afford TRTs outside [place] no hospitalizations, surgeries Patient also has a hx of [facility] At that time he had symptoms of fatigue and hot flashes and was told that his testosterone level was low. He was then started on androgel and currently uses 3 pumps a day. AndroGel was prescribed by urologist at [facility] (per patient) who moved out of state. Patient was then referred to endocrinology for continuation of androGel. weight unchanged was tolerating androgel well Unable to have erections since prostatectomy. dexa shows normal bone mass 01/2022 Social hx: denies any substance use. Has 2 healthy children. Works for [employer]. no change in fam hx ROS: 10 point ROS negative x above Active Outpatient Medications (including Supplies): Active Outpatient Medications Status 1) ACETAMINOPHEN 325MG TAB TAKE TWO TABLETS BY MOUTH EVERY 6 ACTIVE HOURS NEEDED CAUTION: DO NOT EXCEED 4000MG PER DAY ACETAMINOPHEN (APAP) FROM ALL MEDS. Indication: FOR PAIN 2) CARBOXYMETHYLCELLULOSE NA 1% OPH GEL INSTILL 2 DROPS INTO ACTIVE BOTH EYES FOUR TIMES A DAY NEEDED FOR S Indication: DRY EYE 3) DEPEND UNDERWEAR,MAXIMUM,MEN LARGE USE 1 DIAPER TO AFFECTED ACTIVE AREA(S) 5 TIMES A DAY NEEDED FOR INCONTINENCE 4) NAPROXEN 250MG TAB TAKE ONE TABLET BY MOUTH EVERY 12 HOURS ACTIVE (S) NEEDED TAKE WITH FOOD. Indication: FOR PAIN Active Non-[facility] Medications Status 1) Non-VA APIXABAN 5MG TAB 5MG BY MOUTH TWICE A DAY ACTIVE Indication: FOR ANTICOAGULATION 2) Non-VA ASPIRIN 81MG EC TAB 81 MG BY MOUTH ONCE A DAY ACTIVE 3) Non-VA CLONAZEPAM 0.5MG TAB 0.5MG BY MOUTH THREE TIMES A DAY ACTIVE NEEDED 4) Non-VA CYCLOBENZAPRINE HCL 10MG TAB 10MG BY MOUTH THREE ACTIVE TIMES A DAY NEEDED 5) Non-VA DICLOFENAC NA 50MG EC TAB 50MG BY MOUTH EVERY MORNING ACTIVE AND EVENING 6) Non-VA DILTIAZEM (EQV-TIAZAC) 300MG 24HR CAP 300MG BY MOUTH ACTIVE EVERY MORNING BEFORE A MEAL 7) Non-VA ESZOPICLONE 2MG TAB 2MG BY MOUTH AT BEDTIME ACTIVE 8) Non-VA FISH OIL 1000MG (500MG DHA/EPA) CAP 2000MG BY MOUTH ACTIVE TWICE A DAY 9) Non-VA HYDROCHLOROTHIAZIDE TAB BY MOUTH ACTIVE Indication: FOR HIGH BLOOD PRESSURE 10) Non-VA LOSARTAN 100MG TAB 100MG BY MOUTH ONCE A DAY ACTIVE 11) Non-VA METFORMIN HCL 1000MG TAB 500MG BY MOUTH TWICE A DAY ACTIVE WITH MEALS 12) Non-VA OXYCODONE 10MG/ACETAMINOPHEN 325MG TAB 1 TABLET BY ACTIVE MOUTH EVERY 6 HOURS NEEDED 13) Non-VA PANTOPRAZOLE NA 40MG EC TAB 40MG BY MOUTH EVERY ACTIVE MORNING BEFORE A MEAL 14) Non-VA PRAVASTATIN NA 40MG TAB 40MG BY MOUTH EVERY EVENING ACTIVE 15) Non-VA SEMAGLUTIDE 0.25MG/0.375ML INJ PEN 3ML 0.25MG ACTIVE (0.1875ML) UNDER THE SKIN EVERY WEEK 16) Non-VA TADALAFIL 5MG TAB 5MG BY MOUTH AT BEDTIME ACTIVE 17) Non-VA TESTOSTERONE (ANDROGEL) 1% 5GM/PKT GEL 1 SPARINGLY TO ACTIVE AFFECTED AREA(S) EVERY MORNING 18) Non-VA TIZANIDINE HCL 4MG TAB 4MG BY MOUTH THREE TIMES A DAY ACTIVE 19) Non-VA TRAMADOL HCL 50MG TAB 2 TABLETS BY MOUTH FOUR TIMES A ACTIVE DAY NEEDED 23 Total Medications Allergies: LISINOPRIL PAST HISTORY: 1) Ulnar Neuropathy (ICD-9-CM 355.9) 2) Hepatitis C, Chronic 3) Gastro-esophageal reflux disease (SNOMED CT 392362638) 4) Benign prostatic hyperplasia 5) Pancreatic Cyst/Pseudocyst 6) Sleep Apnea W/Hypersomnulence 7) Hypertension * (ICD-9-CM 401.9) 8) Obesity (SNOMED CT 638094605) 9) Erectile dysfunction (SNOMED CT 435214092) 10) Dyslipidemia (ICD-9-CM 272.4) 11) Spinal stenosis of lumbar region (SNOMED CT 58768927) 12) Hyperlipidemia 13) Prostate cancer 14) Closed fracture radial styloid 15) Closed fracture of styloid process of ulna 16) Arthritis of both knees 17) Hypogonadism 18) Exposure to potentially hazardous substance ([facility] [id number]) 19) Calcific tendinitis of right shoulder PHYSICAL EXAM: Vital Signs- Temperature: 97.3 F [36.3 C] (06/04/2024 13:11) HR: 92 (06/04/2024 13:11) BP: Measurement DT BP 06/04/2024 13:11 120/76 04/28/2024 13:06 156/73 02/04/2024 13:05 130/90 Weight: 202.7 lb [91.94 kg] (06/04/2024 13:11) Patient Weight History - Last Four 1. 202.7 lbs. / 91.9 kg. on JUN 04, 2024@13:11:19 2. 207.4 lbs. / 94.1 kg. on APR 28, 2024@13:06:05 3. 199.9 lbs. / 90.7 kg. on FEB 04, 2024@13:05:22 4. 204.0 lbs. / 92.5 kg. on DEC 30, 2023@13:06:14 BMI: 28.3 General: 70MALE NAD, WNWD HEENT: sclera anicteric LUNGS: CTAB, regular unlabored CVS: RRR, S1 S2, no S3 S4 or murmurs MOOD: appropriate, pleasant PRESIDENT & FOUNDER: non focal LABS: SODIUM 141 mEq/L 02/04/2024 14:46 POTASSIUM 4.1 mEq/L 02/04/2024 14:46 CHLORIDE 104 mEq/L 02/04/2024 14:46 UREA NITROGEN 17.5 mg/dL 02/04/2024 14:46 CREATININE 0.79 mg/dL 02/04/2024 14:46 CALCIUM 10.3 mg/dL 02/04/2024 14:46 CARBON DIOXIDE 28 mEq/L 02/04/2024 14:46 GLUCOSE 99 mg/dL 02/04/2024 14:46 EGFR (CKD-EPI 2020) 96.2 02/04/2024 14:46 HGA1C 5.4 % 02/04/2024 14:46 HGA1C 5.3 % 10/29/2022 11:29 HGA1C 5.5 % 07/16/2022 14:49 Lipid Panel: TRIGLYCERIDE 77 mg/dL 02/04/2024 14:46 CHOLESTEROL 145 mg/dL 02/04/2024 14:46 HDL(New) 74 mg/dL 02/04/2024 14:46 CALCULATED LDL 56 mg/dL 02/04/2024 14:46 No TSH (2YR) EO data found A/P: 1. Hypogonadism - dx in 2010 by outside provider based on symptoms of hot flashes, fatigue and low testosterone level - on AndroGel 1%, 3 pumps since 2010 - hx of prostate ca, s/p resection 2017. PSA 0.133 in 10/2022 has been f/b non[facility] provider hx of DORY (did not tolerate CPAP) and endorses opioids use was [facility] 3 [facility] but [facility] stopped since 10/2023 reported recurrence of prostate cancer in the last year, got radiation and 1 dose of androgen deprivation therapy in October and was told that was all he needed reports f/b [facility] Dr Jermain Lee PT2, pN0, CM0 in [facility] PSA 0.22 05/09/2023 radiation therapy ordered 08/2023, eligard 06/18/2023 1 month injection, to complete total 7 months, 07/2023 3 month injection and 10/2023 has a total T <5 05/12/2024 PSA <0.02 05/12/2024 - reviewed testosterone labs showing nl HCT and mid normal testosterone level 10/2022 - normal dexa from 2021 - advised to use CPAP for DORY d/w team about restarting pt willing to accept risks of prostate cancer RTC depending on if we are able to restart TRT per non-VA provider I spent 65 minutes on some or all of the following: chart review, history, physical examination, treatment planning, education and counseling of the patient/family/home child care provider, placing orders, communicating with other health care providers, and documentation in the electronic health record. /sree/ [facility] ENDOCRINE NURSE PRACTITIONER Signed: 06/10/2024 08:35 06/10/2024 ADDENDUM STATUS: COMPLETED few suggestions from my team but general consensus is not to restart TRT called Dr Lee's nurse and left requesting their input on restarting TRT and [place] back [place] [phone] option 2 for HCP option 0 for 2nd list of providers option [address] Lee waiting return call on yes or no to restarting TRT alerting nurse for awareness and follow up if we don't hear back please /sree/ [facility] ENDOCRINE NURSE PRACTITIONER Signed: 06/10/2024 08:36 Receipt Acknowledged By: 06/10/2024 15:19 /es/ Michael Tran, RN, BSN REGISTERED NURSE 06/10/2024 ADDENDUM STATUS: COMPLETED 1544: Nelsy from Dr. Richards office called back and left vm concerning restarting of Testosterone; Dr. Richards states, at this time he would not recommend Mr. Cordero restarting the medication d/t the risk of reoccurance of prostate issues/cancer /es/ ANASTACIO BENTON MSN RN REGISTERED NURSE Signed: 06/10/2024 15:47 Receipt Acknowledged By: 06/11/2024 09:05 /sree/ [facility] ENDOCRINE NURSE PRACTITIONER 06/11/2024 ADDENDUM STATUS: COMPLETED called pt on phone to inform no TRT recommended by team and his oncologist pt has no other questions /sree/ [facility] ENDOCRINE NURSE PRACTITIONER Signed: 06/11/2024 09:06 [facility]
== END 2024-07-30 12:35 | disposition home or self-care (01) ==
LOC: ANHCARD 12:35
PROVIDERS: PCP Internal Medicine; Visit Provider Internal Medicine
DX: I48.91 Unspecified atrial fibrillation (principal); I10 Essential (primary) hypertension; R42 Dizziness and giddiness; I36.1 Nonrheumatic tricuspid (valve) insufficiency
CPT/HCPCS: 93242; 93306

== ENCOUNTER 2025-02-25 13:30 | Outpatient (CLI) | payer MEDICARE, OTHER, SELFPAY ==
--- NOTE | ~2025-02-25 | XR_ITS ---
EXAMINATION: Abdomen supine and upright views: DATE: 02/25/2025. INDICATION: Nausea. Abdominal pain. TECHNIQUE: Supine and upright views of the abdomen were obtained. COMPARISON: None. FINDINGS: No evidence of mechanical bowel obstruction. No free air under the diaphragm on the upright view although the diaphragms are not completely visualized in the upright view. Postsurgical changes of cholecystectomy and lumbar spine surgery. IMPRESSION: 1. Incompletely included diaphragm on the upright view. 2. No acute findings. Postsurgical changes of cholecystectomy and back surgery. Reviewed, dictated and finalized at location T. COLOR PRESS OPERATOR
== END 2025-02-25 13:31 | disposition home or self-care (01) ==
PROVIDERS: PCP Internal Medicine; Visit Provider Internal Medicine
DX: R11.0 Nausea (principal); R14.0 Abdominal distension (gaseous); R10.9 Unspecified abdominal pain
CPT/HCPCS: 74019

== ENCOUNTER 2025-03-12 12:44 | Outpatient (CLI) | payer MEDICARE, OTHER, SELFPAY ==
--- NOTE | ~2025-03-12 | CT_ITS ---
EXAMINATION: CT abdomen pelvis w con DATE: 03/12/2025 13:20 INDICATION: Unspecified abdominal pain. TECHNIQUE: Computed tomography (CT) of the abdomen and pelvis was performed with 100 mL Omnipaque 350 intravenous contrast. Automated exposure control and iterative reconstruction technique were employed. The dose-length product was 977.28 mGy-cm. COMPARISON: CT abdomen and pelvis 07/27/19 FINDINGS: The visualized portions of the lung bases demonstrate mild atelectasis. No pleural effusion. The heart size is normal. There are coronary artery calcifications. No pericardial effusion. The liver and spleen are normal. There are changes of cholecystectomy. The pancreas and adrenal glands are normal. There are cysts in the kidneys measuring up to 10 mm on the left. There is focal cortical thinning in right kidney. The appendix is normal. There are no dilated loops of bowel. There are no pathologically enlarged lymph nodes. There is no free intraperitoneal fluid. There are changes of posterior fusion procedure from L2 to L5 with pedicle screws. There is mild thoracic and lumbar spondylosis. IMPRESSION: 1. No etiology for the patient's symptoms. Reviewed, dictated and finalized at location E. HASING COORDINATOR
[2025-03-12 13:11] LABS: Estimated Glomerular Filt Rate > 60
== END 2025-03-12 12:45 | disposition home or self-care (01) ==
LOC: MICIMG 12:45
PROVIDERS: PCP Internal Medicine; Visit Provider Internal Medicine
DX: R10.9 Unspecified abdominal pain (principal); R14.0 Abdominal distension (gaseous); R11.2 Nausea with vomiting, unspecified
CPT/HCPCS: 74177; Q9967